=== PATIENT | female | born 1970 | race Caucasian/White ===

== ENCOUNTER 2019-05-31 09:57 | Outpatient (REF) | payer MEDICAID, SELFPAY ==
--- NOTE | 2019-05-31 08:45 | PAPFT_PTH ---
PATIENT: Odalis Garzon LOC: [facility]#:[id number] AGE/SX: 49/F ROOM: RE05/31/[address]: Octavia Warner : 1970 BED: DIS: 05/31/2019 SPEC #: [id number] RECD: 05/31/19 12:54 STATUS: TARIK REDonovan #: [id number] NICOLE: 05/31/19 08:[address]: Octavia Warner DEPT: [facility] Cytology RECD BY: Oxana Anne ENTERED: 05/31/19 12:55 SP TYPE: PAPFT TANYA DR: Carrie Herrera Tissues: 1 - CX/ENDOCX FOR PAP SMEARS Procedures: PAP THIN PREP/UVM Screening HPV DNA PROBE Comments: [id number]
[2019-05-31 13:11] LABS: Anion Gap 12.5 mmol/L (3-11); BUN 11 mg/dL (7-18); CO2 24.5 mmol/L (21.0-32.0); CREATININE 0.87 mg/dL (0.55-1.02); Calcium 9.2 mg/dL (8.5-10.1); Calculated LDL 221 mg/dL; Chloride 103 mmol/L (98-107); Cholesterol 303 mg/dL (50-200); Glucose 91 mg/dL (70-100); HDL Cholesterol 50 mg/dL (40-60); Potassium 4.3 mmol/L (3.5-5.1); Sodium 140 mmol/L (136-145); Triglyceride 164 mg/dL (30-150)
[2019-05-31 17:39] LABS: ALT 24 U/L (12-78); AST 12 U/L (15-37); Albumin 4.2 g/dL (3.4-5.0); Alkaline Phosphatase 85 U/L (46-116); Bilirubin, Total 0.7 mg/dL (0.2-1.0); Total Protein 7.5 g/dL (6.4-8.2)
== END 2019-05-31 10:17 ==
LOC: NCHCN 09:57
PROVIDERS: PCP Nurse Practitioner; Visit Provider Nurse Practitioner Family
DX: E28.2 Polycystic ovarian syndrome (principal); E78.5 Hyperlipidemia, unspecified; R60.0 Localized edema; N39.490 Overflow incontinence; F51.04 Psychophysiologic insomnia; L70.9 Acne, unspecified; E66.9 Obesity, unspecified; Z12.4 Encounter for screening for malignant neoplasm of cervix; Z11.51 Encounter for screening for human papillomavirus (HPV); Z00.00 Encounter for general adult medical examination without abnormal findings
CPT/HCPCS: 80048; 80061; 80076; 83721; 88142; 84443; 87624

== ENCOUNTER 2019-06-13 00:55 | Outpatient (CLI) | payer MEDICAID, SELFPAY ==
--- NOTE | 2019-06-13 11:38 | DI.MAMMO_ITS ---
SYMPTOMS/DIAGNOSIS: SCREENING, Z12.31 MAMMOGRAM: Mammograms were interpreted according to the usual protocol including computer analysis with CAD system, tomosynthesis and C view imaging. No priors for comparison. Breast density B. There is a well circumscribed nodule in the upper outer quadrant of the right breast likely reflecting intraparenchymal lymph node. No suspicious masses or microcalcifications. Asymmetric breast tissue is seen in the outer left breast. Spot compression views requested for further evaluation. Ultrasound may be indicated at that time. IMPRESSION: Additional views of the left breast as described above. Category 0. [facility]SA ASSESSMENT OF FINDINGS: Incomplete: Needs additional imaging evaluation. Category 0. Patient will receive a letter notifying them of these results. BI-RADS category B. There are scattered areas of fibroglandular density.
== END 2019-06-13 01:15 ==
PROVIDERS: PCP Nurse Practitioner; Visit Provider Nurse Practitioner Family
DX: Z12.31 Encounter for screening mammogram for malignant neoplasm of breast (principal); R92.8 Other abnormal and inconclusive findings on diagnostic imaging of breast
CPT/HCPCS: 77063; 77067

== ENCOUNTER 2019-06-15 01:11 | Outpatient (CLI) | payer MEDICAID, SELFPAY ==
--- NOTE | 2019-06-15 11:00 | NS.NUTBLAN_ITS ---
DESCRIPTION: Odalis Garzon presents for nutrition consult for bariatric surgery. Odalis asks about 16 hour fast daily; different diet plans. She states she has tried no processed food but does not sustain the change. She acknowledges a lack of consistency with her weight loss efforts. She also states she sleeps poorly and gets up in the night to eat. Food choices currently influenced by family considerations during the summer. She is not hungry for breakfast but might have protein drink; lunch yesterday was BLT, fruit, 1/2 cran/seltzer; chips. She has a regular meat, potato, vegetable and small dessert. She exercises irregularly attempting walking and occasionally treadmill. She also wonders if she has PCOS. WEIGHT TODAY: 207.8 HEIGHT: 60 BMI: 40.7 INTERVENTION: Discussed healthy eating strategies. Discussed initiating regular exercise plan. Discussed bariatric recommendations of no soda or seltzer. Discussed alternatives to current choices of food at night and prevention of eating at that time. Discussed tracking food. PLAN: Odalis will: get a walking partner or use the treadmill 3 days a week begin eating fruits and vegetables consistently; have healthy snacks available for night eating She will return in 1 month for monitoring of food, physical activity and weight.
--- NOTE | 2019-07-05 09:00 | NS.NUTBLAN_ITS ---
DESCRIPTION: Coni Garzon presents for her second nutrition consult for preparation for bariatric surgery. Weight today: 204.7 Height 60 BMI 40.0 Odalis states she is consistently eating protein shakes as a meal in the morning. She is journaling her food which helps her reflect on triggers however she did not bring it with her. She continues to get up in the night and make poor food decisions. She has done some walking and gardening about 100 minutes per week. INTERVENTION: Discussed night eating and availability of food at that time. Discussed carbonated beverage intake and she will attempt to cut back on this. Discussed taking multivitamin and she is willing to begin this. Discussed types of surgeries and the benefits of each as a supportive listener. PLAN: Odalis will: continue current physical activity; continue journaling her food. We will monitor weight, food intake, physical activity in 1 month.
== END 2019-06-15 01:31 ==
PROVIDERS: PCP Nurse Practitioner; Visit Provider Dietitian, Registered
DX: E66.01 Morbid (severe) obesity due to excess calories (principal); Z01.818 Encounter for other preprocedural examination; Z71.3 Dietary counseling and surveillance
CPT/HCPCS: 97802; 97803

== ENCOUNTER 2019-06-17 01:46 | Outpatient (CLI) | payer MEDICAID, SELFPAY ==
--- NOTE | 2019-06-17 14:48 | DI.MAMMO_ITS ---
SYMPTOMS/DIAGNOSIS: F/U ABNORMAL MAMMO, ASYMMETRIC BREAST TISSUE OUTER LEFT BREAST ADDITIONAL VIEW OF THE LEFT BREAST: Additional images are interpreted according to the usual protocol including tomosynthesis and 2D imaging. A CC spot compression view with tomography of the lateral portion of the left breast was performed. No persistent abnormality is seen. The findings are consistent with overlying fibroglandular tissue. IMPRESSION: Category 1, negative mammogram. Yearly screening mammography is recommended. [facility] ASSESSMENT OF FINDINGS: Negative. Category 1. Patient will receive a letter notifying them of these results. BI-RADS category B. There are scattered areas of fibroglandular density.
== END 2019-06-17 02:06 ==
PROVIDERS: PCP Nurse Practitioner; Visit Provider Nurse Practitioner Family
DX: Z12.31 Encounter for screening mammogram for malignant neoplasm of breast (principal); R92.8 Other abnormal and inconclusive findings on diagnostic imaging of breast; N64.59 Other signs and symptoms in breast
CPT/HCPCS: 77063; 77067

== ENCOUNTER 2019-07-05 09:24 | Outpatient (CLI) | payer MEDICAID, SELFPAY ==
--- NOTE | 2019-07-21 11:13 | NS.NUTBLAN_ITS ---
DESCRIPTION: Odalis Garzon presents for her second nutrition consult for preparation for bariatric surgery. Weight today: 204.7 Height 60 BMI 40.0 Odalis states she is consistently eating protein shakes as a meal in the morning. She is journaling her food which helps her reflect on triggers however she did not bring it with her. She continues to get up in the night and make poor food decisions. She has done some walking and gardening about 100 minutes per week. INTERVENTION: Discussed night eating and availability of food at that time. Discussed carbonated beverage intake and she will attempt to cut back on this. Discussed taking multivitamin and she is willing to begin this. Discussed types of surgeries and the benefits of each as a supportive listener. PLAN: Odalis will: continue current physical activity; continue journaling her food. We will monitor weight, food intake, physical activity in 1 month.
== END 2019-07-05 09:44 ==
PROVIDERS: PCP Nurse Practitioner Family; Visit Provider Dietitian, Registered
DX: E66.2 Morbid (severe) obesity with alveolar hypoventilation (principal); Z68.41 Body mass index [BMI] 40.0-44.9, adult; Z71.3 Dietary counseling and surveillance
CPT/HCPCS: 97803

== ENCOUNTER 2019-07-08 09:26 | Outpatient (CLI) | payer MEDICAID, SELFPAY ==
[2019-07-08 10:36] LABS: Anion Gap 12.3 mmol/L (3-11); BUN 14 mg/dL (7-18); CO2 23.7 mmol/L (21.0-32.0); CREATININE 0.95 mg/dL (0.55-1.02); Calcium 8.8 mg/dL (8.5-10.1); Calculated LDL 86 mg/dL; Chloride 103 mmol/L (98-107); Cholesterol 150 mg/dL (50-200); Glucose 95 mg/dL (70-100); HDL Cholesterol 46 mg/dL (40-60); Potassium 4.2 mmol/L (3.5-5.1); Sodium 139 mmol/L (136-145); Triglyceride 91 mg/dL (30-150)
[2019-07-11 15:33] LABS: ALT 25 U/L (12-78); AST 17 U/L (15-37); Alkaline Phosphatase 74 U/L (46-116); Bilirubin, Total 0.5 mg/dL (0.2-1.0); Total Protein 7.1 g/dL (6.4-8.2)
== END 2019-07-08 09:46 ==
PROVIDERS: PCP Nurse Practitioner Family; Visit Provider Nurse Practitioner Family
DX: E78.5 Hyperlipidemia, unspecified (principal); Z00.00 Encounter for general adult medical examination without abnormal findings
CPT/HCPCS: 36415; 80048; 80053; 80061; 83721

== ENCOUNTER 2019-08-08 02:28 | Outpatient (CLI) | payer MEDICAID, SELFPAY ==
--- NOTE | 2019-08-08 10:00 | NS.NUTBLAN_ITS ---
DESCRIPTION: Odalis Garzon presents for her 3rd nutrition consult for bariatric surgery. Odalis is focused on physical activity and is walking 45 minutes at least once a day an doing treadmill about 25 minutes a day. She has a protein shake at breakfast; small lunch of 1/2 PBJ or carrots with hummus, big salad, meat and starch for supper. She is not drinking carbonated beverages which she misses, and has an occasional beer; she takes multivitamins. Primarily drinks water and tea. She has decreased the frequency of her night eating and is having a small snack before bed as a prevention tactic.. WEIGHT TODAY: 204.8 HEIGHT: 60 BMI: 40 INTERVENTION: Odalis is discouraged about doing the 'right' things and not losing weight. Discussed her concern that this surgery may not work for treating obesity as a side effect of PCOS. Discusses her appointment for psychiatric evaluation. She is journaling her food. PLAN: Odalis will follow up with surgeon to have her questions answered and prepare for surgery. She will continue her current food and activity pattern
== END 2019-08-08 02:48 ==
PROVIDERS: PCP Nurse Practitioner Family; Visit Provider Dietitian, Registered
DX: E66.2 Morbid (severe) obesity with alveolar hypoventilation (principal); Z68.41 Body mass index [BMI] 40.0-44.9, adult; Z71.3 Dietary counseling and surveillance
CPT/HCPCS: 97803

== ENCOUNTER 2019-08-22 09:05 | Day surgery (SDC) | payer MEDICAID, SELFPAY ==
--- NOTE | 2019-08-22 06:59 | W.COLOREPORT ---
Date of service: 08/22/19 Time of Service: 10:34 Colonoscopy Report Date of procedure: 08/22/19 Pre-op diagnosis general: Colon Cancer Screening Post-op diagnosis procedure note: other (3 polyps) Procedure: Colonoscopy with polypectomy Surgeon: Yanira Vela Anesthesia proc note operative: other (General/ ASA 2/ Sharee Orr CRNA) Estimated blood loss (mL): 3 Pathology: other (Transverse polyp x1, Rectal polyp x2) Complications: None Disposition: same day Indications: Mrs. Garzon is a pleasant 49 year old female seen in the office for a screening colonoscopy. She has no family history of colon cancer. This is her first colonoscopy. Risks, benefits and complications have been reviewed. Complications include but are not limited to bleeding, pain, perforation, missed small lesion/polyp, sore throat, aspiration and adverse reaction to the medications. Questions were entertained and answered to their satisfaction and they wished to proceed. No guarantees were given or implied. Prep: Miralax/Dulcolax Procedure Start Time: :34 Procedure End Time: 11:00 Retraction Time: 17 minutes Findings: 3 flat polyps Procedure Description: After informed consent was obtained the patient was taken to the procedure room and placed in a left decubitous position. Monitors were applied and a time out was done. The patients name, date of , procedure, allergies to medications and metal in their body was reviewed. The patient was then sedated. Once sedated and comfortable a rectal exam was done. External exam was normal. Internal exam revealed a normal sphincter tone and no palpable masses. The scope was then introduced and retro-flexed. No internal hemorrhoids masses or polyps were identified. The scope was then advanced to the cecum without difficulty. The TI and appendiceal orifice were identified. The prep was adequate. The scope was then slowly retracted over 17 minutes back into the rectum. Polyps were removed in the transverse colon and 2 in the rectum with cold forceps. The scope was removed and the patient was woken up and taken back to Same day surgery in stable condition. The patient tolerated the procedure well and there were no immediate complications. Follow up: The patient should follow up in 3-5 years unless they develop changes in bowel habits or other new gastrointestinal complaints.
--- NOTE | 2019-08-22 07:01 | W.PM.DSUDISC ---
Discharge Plan Disposition Patient Disposition: HOME Condition: Good Discharge Details Reason For Visit: Colon Cancer Screening Attending Provider: Yanira Vela Primary Care Provider: Octavia Warner Home Meds and New Rx's Prescriptions: Continued atorvastatin 10 mg tablet 20 mg PO DAILY RF: 0 spironolactone [Aldactone] 50 mg tablet 50 mg PO DAILY RF: 0 ONE DAILY 1 TAB tablet 1 tab PO DAILY RF: 0 Discontinued polyethylene glycol 3350 17 gram/dose powder 238 g PO ONCE Qty: 238 RF: 0 bisacodyl [Dulcolax (bisacodyl)] 5 mg tablet,delayed release (DR/EC) 5 mg PO ONCE Qty: 4 RF: 0 Discharge Instructions Instructions: Colorectal Polyps (DC) Additional Instructions: Findings: 3 polyps Follow up: 3-5 years Please call if you develop: fevers >101.5 Nausea or Vomiting Abdominal pain that is not transient DAY SURGERY UNIT POST ENDOSCOPY INSTRUCTIONS 1. Because there will be medication in your system for the next 24 hours, you may feel a little sleepy. Your coordination will be affected. Therefore: a. Do not drive or operate dangerous equipment for 24 hours. b. Do not drink alcohol beverages for 24 hours (not even beer). c. Plan to go home and rest for the day. 2. Generally there are no restrictions on your activity after a day or so has gone by, but you may feel a bit fatigued for a few days. 3 After you arrive home you may have a light meal and return to a normal diet as you can tolerate it without feeling sick to your stomach. 4. After surgery, you may feel pain or discomfort. This should be only transient, but if it persists please contact your doctor. 5. If there are any questions regarding the findings of your procedure, please feel free to contact your doctor. 6. If you are unable to contact your doctor with a problem, contact the hospital at [phone]. 7. Continue all your regular medications unless directed otherwise. I understand the above instructions and have no questions. Signature of Patient or Responsible Adult Escort Date/Time Name of Responsible Adult Escort Signature of Nurse Date/Time Activity:: Activity as Tolerated Diet:: As Tolerated Discharge Orders Discharge Orders: Discharge Order (Routine); Ordered 08/22/19 Ordered By: Yanira Vela DS: Diagnosis Discharge Diagnosis (1) S/P colonoscopy: Status: Acute (2) Colorectal polyps: Status: Acute
[2019-08-22 09:23] VITALS: BP 139/76; PULSE 74; RESP 14; TEMP 36.3; O2SAT 96
[2019-08-22] MEDS: Lactated Ringers 1,000 ML 80 ML IV (10:00)
--- NOTE | 2019-08-22 10:48 | BOWEL_PTH ---
PATIENT: Odalis Garzon LOC: [facility] U#:[id number] AGE/SX: 49/F ROOM: RE08/22/[address]: Yanira Vela MD : 1970 BED: DIS: 08/22/2019 SPEC #: [id number] RECD: 08/22/19 12:50 STATUS: TARIK REQ #: [id number] NICOLE: 08/22/19 10:[address]: Yanira Vela DEPT: Surgical Specimen RECD BY: Oxana Anne ENTERED: 08/22/19 12:51 SP TYPE: Bowel OTHR DR: Octavia Warner Tissues: 1 - BIOPSY BOWEL 2 - BIOPSY BOWEL Procedures: GROSS AND MICRO LEVEL 4 Comments: [id number]
[2019-08-22 11:37] VITALS: BP 132/67; PULSE 55; RESP 15; TEMP 36.4; O2SAT 100
== END 2019-08-22 12:02 | disposition home or self-care (01) ==
LOC: SUR 09:06
PROVIDERS: PCP Nurse Practitioner Family; Visit Provider Surgery
PROC: 0DJD8ZZ Inspection of Lower Intestinal Tract, Via Natural or Artificial Opening Endoscopic (ICD-10-PCS; CPT 45378; principal; 2019-08-22 10:30)
DX: Z12.11 Encounter for screening for malignant neoplasm of colon (principal); K62.1 Rectal polyp; K21.9 Gastro-esophageal reflux disease without esophagitis
CPT/HCPCS: 45380; 81025; 88305

== ENCOUNTER 2021-06-17 14:33 | Outpatient (REF) | payer MEDICAID, SELFPAY ==
[2021-06-17 21:10] LABS: ALT 23 U/L (14-59); AST 16 U/L (15-37); Albumin 4.1 g/dL (3.4-5.0); Alkaline Phosphatase 56 U/L (46-116); Anion Gap 10.3 mmol/L (3-11); BUN 10 mg/dL (7-18); Bilirubin, Total 0.4 mg/dL (0.2-1.0); CO2 27.7 mmol/L (21.0-32.0); CREATININE 0.8 mg/dL (0.55-1.02); Calcium 9.3 mg/dL (8.5-10.1); Chloride 105 mmol/L (98-107); Glucose 97 mg/dL (74-106); Potassium 4.2 mmol/L (3.5-5.1); Sodium 143 mmol/L (136-145); Total Protein 6.9 g/dL (6.4-8.2)
== END 2021-06-17 14:34 | disposition home or self-care (01) ==
LOC: NCHCN 14:33
PROVIDERS: PCP Nurse Practitioner Family; Visit Provider Nurse Practitioner Family
DX: G25.81 Restless legs syndrome; N39.490 Overflow incontinence; F32.9 Major depressive disorder, single episode, unspecified; E66.9 Obesity, unspecified; E78.5 Hyperlipidemia, unspecified; F41.8 Other specified anxiety disorders
CPT/HCPCS: 80053

== ENCOUNTER 2021-07-18 01:34 | Outpatient (CLI) | payer MEDICAID, SELFPAY ==
--- NOTE | 2021-07-18 | DI.MAMMO_ITS ---
Exam(s) MAMMO SCREENING EXAM: MAMMO SCREENING CLINICAL HISTORY: SCREENING, Z12.31. TECHNIQUE: Bilateral full field digital CC and MLO mammographic images were obtained with 3D tomosyn thesis and utilizing computer aided detection (CAD). COMPARISON: Prior mammogram of May 2019, this being the only prior mammogram in our PACS FINDINGS: Benign-appearing nodule in the upper outer quadrant of right breast is unchanged and most probably be nign intramammary lymph node. There are no new spiculated masses nor malignant appearing microcalcification groups. There is no significant architectural distortion nor skin thickening-retraction. IMPRESSION: Stable benign findings. No radiographic evidence of malignancy. BI-RADS Category 2 - Benign Findings Breast Density - Category B - Scattered areas of fibroglandular density Breast density Category C or D implies that the patient has dense breast tissue. Dense breast tissue can make it harder to find cancer on a mammogram. Dense breast tissue is also associated with an incr eased risk of breast cancer. This information about the result of the mammogram report was provided to the patient to raise their awareness. Use this report when you speak with the patient about their risks for breast cancer, which includes their family history. At that time, you may recommend additional screening tests (Ultrasoun d or MRI) as these tests may add significant information. A negative radiographic report should not delay biopsy if a dominant or clinically suspicious mass is present. Up to ten percent of cancers are not identified on mammography. A negative report may reinforce clinical impression. Adenosis and dense breasts may obscure an underlying neoplasm. False positive reports average 6 to 10%. Patient will receive a letter notifying them of these results.
== END 2021-07-18 01:54 ==
PROVIDERS: PCP Nurse Practitioner Family; Visit Provider Nurse Practitioner Family
DX: Z12.31 Encounter for screening mammogram for malignant neoplasm of breast (principal); N63.11 Unspecified lump in the right breast, upper outer quadrant; R92.8 Other abnormal and inconclusive findings on diagnostic imaging of breast
CPT/HCPCS: 77063; 77067

== ENCOUNTER 2021-12-16 15:00 | Outpatient (REF) | payer MEDICAID, SELFPAY ==
[2021-12-16 21:38] LABS: Abs Immature Grans 0.06 10^3/uL (0.0-0.06); Absolute Basophil Count 0.04 10^3/uL (0.0-0.2); Absolute Eosinophil Count 0.08 10^3/uL (0.0-0.7); Absolute Lymphocyte Count 1.08 10^3/uL (1.2-3.4); Absolute Monocyte Count 0.51 10^3/uL (0.1-0.8); Absolute Neutrophil Count 1.16 10^3/uL (1.2-6.7); Basophils % 1.4; Eosinophils % 2.7; HCT 40.5 % (36.0-46.0); HGB 12.6 g/dL (11.2-15.7); Iron 27 ug/dL (50-170); Lymphocytes % 36.9; MCH 27.6 pg (27.0-33.0); MCHC 31.1 % (32.0-36.0); MCV 88.6 fL (80-95); MPV 11.4 fL (8.0-11.0); Monocytes % 17.4; Neutrophils % 39.6; Nucleated RBC 0 %; Platelet Count 255 10^3/uL (130-400); RBC 4.57 10^6/uL (3.93-5.22); RDW 13.8 % (11.7-14.6); RDW-SD 44.4 fL; Total Iron Binding Capacity 386 ug/dL (250-450); Transferrin Sat 7 % (15-50); WBC 2.93 10^3/uL (4.4-10.8)
[2021-12-16 22:31] LABS: Ferritin 8 ng/mL (8-252)
== END 2021-12-16 15:01 | disposition home or self-care (01) ==
LOC: NCHCN 15:00
PROVIDERS: PCP Nurse Practitioner Family; Visit Provider Nurse Practitioner Family
DX: N92.0 Excessive and frequent menstruation with regular cycle (principal); Z86.2 Personal history of diseases of the blood and blood-forming organs and certain disorders involving the immune mechanism; F41.8 Other specified anxiety disorders; R03.0 Elevated blood-pressure reading, without diagnosis of hypertension
CPT/HCPCS: 82728; 83540; 83550; 85025

== ENCOUNTER 2022-04-01 18:29 | Outpatient (REF) | payer MEDICAID, SELFPAY ==
[2022-04-01 14:16] LABS: Abs Immature Grans 0.03 10^3/uL (0.0-0.06); Absolute Basophil Count 0.05 10^3/uL (0.0-0.2); Absolute Eosinophil Count 0.14 10^3/uL (0.0-0.7); Absolute Lymphocyte Count 1.51 10^3/uL (1.2-3.4); Absolute Monocyte Count 0.61 10^3/uL (0.1-0.8); Absolute Neutrophil Count 4.84 10^3/uL (1.2-6.7); Basophils % 0.7; Eosinophils % 1.9; HCT 43.5 % (36.0-46.0); HGB 13.4 g/dL (11.2-15.7); Immature Grans % 0.4; MCH 27.7 pg (27.0-33.0); MCHC 30.8 % (32.0-36.0); MCV 90 fL (80-95); MPV 10.9 fL (8.0-11.0); Monocytes % 8.5; Neutrophils % 67.5; Platelet Count 230 10^3/uL (130-400); RBC 4.83 10^6/uL (3.93-5.22); RDW 15.1 % (11.7-14.6); RDW-SD 49.9 fL; WBC 7.18 10^3/uL (4.4-10.8)
[2022-04-01 14:30] LABS: Iron 35 ug/dL (50-170); Total Iron Binding Capacity 372 ug/dL (250-450); Transferrin Sat 9 % (15-50)
== END 2022-04-01 18:30 | disposition home or self-care (01) ==
LOC: NCHCN 18:29
PROVIDERS: PCP Nurse Practitioner Family; Visit Provider Nurse Practitioner Family
DX: E61.1 Iron deficiency (principal)
CPT/HCPCS: 83540; 83550; 85025

== ENCOUNTER → 2022-08-05 15:22 | Outpatient (CLI) | payer MEDICAID, SELFPAY ==
--- NOTE | 2022-08-05 15:00 | DI.RAD_ITS ---
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 TECHNIQUE: 2D digital imaging was performed. Four views including sesamoid view. COMPARISON: No exams were available for comparison FINDINGS: BONES: No acute fracture is present. No bony destructive lesion is seen. Prior 1st metatarsal osteoto my with pin in place. JOINTS: No dislocation present. No significant degenerative changes. SOFT TISSUE: Calcifications are noted near the sesamoid bones the plantar aspect. There are 2 medial sesamoids and 1 lateral sesamoid. IMPRESSION: Calcifications in the region of the sesamoids. Postsurgical changes of the 1st metatarsal. DATA REPOSITORY: RADIATION DOSE DELIVERED:
--- OUTSIDE RECORDS SUMMARY | 2022-08-05 15:29 | XMS_ITS | Encounter Summary ---
:1970 Author Organization [facility] Address [address] [place] [address] Care Team Providers Name Role Phone Unavailable Primary Care Provider Unavailable Encounter Details Date Type Department Care Team Description 03/24/2007 Results Only [facility] - Rosy Reis FNP conversion [address] [place], [place] [id number] [place] [phone] (Wo rk) Social History Tobacco Use Types Packs/Day Years Used Date Never Assessed Sex Assigned at Date Recorded Not on file documented as of this encounter Plan of Treatment Not on filedocumented as of this encounter Procedures Procedure Name Priority Date/Time Associated Diagnosis Comme nts CYTOPATHOLOGY Routine 03/24/2007 0:00 EDT Results for this procedure are i n the results section . documented in this encounter Results CYTOPATHOLOGY (03/24/2007 0:00 EDT) Pathology Report: CYTOPATHOLOGY REPORT [facility] Reports generated via electronic interface contain paty ginal data; however they are lacking the format of the original re port. Caution should be taken when reading/interpreting unfo rmatted reports. Name: ? ODALIS CARROLL ? Accession #: ? [id number] : ? 1970 (Age: 36) ??F ?Collect Date: ? 12/2006 Location: ? [facility] ? Receive Date : ? 03/25/2007 Provider: ?ROSY BAUMANN POSTIE Copy to: ? Specimen/Source: ? ThinPrep Pap Test, Cervix/Endocervix, processed on [employer] ThinPrep Imaging System, with manual evaluation Last Menstrual Period: ? 02/27 Other: ? HPVA - HPV testing requested if ASC-US on the current ThinPrep Pap test. ? SPECIMEN ADEQUACY ? Satisfactory for Evaluation - transformation zone component present GENERAL CATEGORIZATION ? Negative for Intraepithelial Lesion or Malignan cy ? Document reviewed and electronically signed by: ? FADIA Sweeney(ASCP) ? Report Date: ??03/30/2007 09:00 End of Report Specimen Performing Organization Address City/State/ZIP Code Phon e Number [facility] [address] [place] [address] SERVICES [facility] [address] [place] [address] documented in this encounter Visit Diagnoses Not on filedocumented in this encounter
--- OUTSIDE RECORDS SUMMARY | 2022-08-05 15:29 | XMS_ITS | Encounter Summary ---
:[address] [facility] Address [address] [place] [address] Care Team Providers Name Role Phone Rosy Herrera CARMEN Primary Care Provider Encounter Details Date Type Department Care Team Description 11/27/2014 Results Only [facility] Rosy Herrera FNP Laboratory Services - [place] [address] [address] [place], [place] [address] [phone] Social History Tobacco Use Types Packs/Day Years Used Date Never Assessed Sex Assigned at Date Recorded Not on file documented as of this encounter Plan of Treatment Not on filedocumented as of this encounter Procedures Procedure Name Priority Date/Time Associated Diagnosis Comme nts PAP TEST- RESULT Routine 11/27/2014 0:00 EST Resu lts for this ONLY procedure are i n the results section. documented in this encounter Results PAP TEST- RESULT ONLY (11/27/2014 0:00 EST) Pathology Report: CYTOPATHOLOGY REPORT [facility] Reports generated via electronic interface contain paty ginal data; SERVICES however they are lacking the format of the original re port. Caution should be taken when reading/interpreting unfo rmatted reports. Name: ? ODALIS CARROLL ? Accession #: ? [id number] : ? 1970 (Age: 44) ??F ?Collect Date: ? 03/2015 Location: ? [facility] ? Receive Date : ? 11/29/2014 Provider: ?ROSY CALDWELLP Copy to: ? Specimen/Source: ? Pap Test, Cervix/Endocervix, ThinPrep Imaging System with manual evaluation Last Menstrual Period: ? 10/2014 Other: ? Additional clinical information: Lesions on R inner la carly minora ? SPECIMEN ADEQUACY ? Satisfactory for Evaluation - transformation zone component absent GENERAL CATEGORIZATION ? Negative for Intraepithelial Lesion or Malignan cy ? Document reviewed and electronically signed by: ? FADIA Palacios(ASCP) ? Report Date: ??11/30/2014 14:03 End of Report Specimen Performing Organization Address City/State/ZIP Code Phon e Number [facility] [address] [place] [address] SERVICES documented in this encounter Visit Diagnoses Not on filedocumented in this encounter Care Teams Canvas Cutter Hand Relationship Specialty Start Date End Date Rosy Herrera FNP PCP - General 02/17/12 [address] [place] [address] documented as of this encounter
--- OUTSIDE RECORDS SUMMARY | 2022-08-05 15:29 | XMS_ITS | Encounter Summary ---
:1970 Author Organization [facility] Address [address] [place] [address] Care Team Providers Name Role Phone Carrie Herrera REINFORCED CONCRETE INSPECTOR Primary Care Provider Encounter Details Date Type Department Care Team Description 02/05/2018 Results Only [facility] [place]- Shanna Sainz, WASTE TREATMENT OPERATOR [address] [place], [place] [phone] (Wo rk) Social History Tobacco Use Types Packs/Day Years Used Date Never Assessed Sex Assigned at Date Recorded Not on file documented as of this encounter Plan of Treatment Not on filedocumented as of this encounter Procedures Procedure Name Priority Date/Time Associated Diagnosis Comme nts PAP TEST- RESULT Routine 02/05/2018 0:00 EDT Resu lts for this ONLY procedure are i n the results section. documented in this encounter Results PAP TEST- RESULT ONLY (02/05/2018 0:00 EDT) Pathology Report: CYTOPATHOLOGY REPORT [facility] Reports generated via electronic interface contain paty ginal data; SERVICES however they are lacking the format of the original re port. Caution should be taken when reading/interpreting unfo rmatted reports. Name: ? ODALIS CARROLL ? Accession #: ? [id number] ? : ? 1970 (Age: [age]) ??F ?Collect Date: ? 02/05/2018 ? Location: ? [facility] ? Receive Date: ? 02/10/20 18 ? Provider: SHANNA GONZALEZ WASTE TREATMENT OPERATOR Copy to: ? Final Report SPECIMEN ADEQUACY ? Satisfactory for Evaluation - transformation zone component present GENERAL CATEGORIZATION ? Negative for Intraepithelial Lesion or Malignan cy ?? Last Menstrual Period: 01/22/18 Specimen/Source: ??Pap Test, Cervix, ThinPrep Imaging System with manual evaluation Document reviewed and electronically signed by: ? Cassandra Red, CT(ASCP)(IAC) ? Report ??Date: 02/12/2018 14:53 HPV with Pap Test ? Date Ordered: ? 02/12/2018 ? Status: ?? Signed Out ?Date Complete: ? 02/15/2018 ? By: ??Sy stem Interface ? Date Reported: ? 02/15/2018 ? Interpretation RESULT: Negative for HPV. No E6 or E7 mRNA is detected from HPV types 16,18,31,3 3,35, 39,45,51,52,56,58,59,66, and 68 by assessment nurse media johny amplification. Comments Document reviewed and electronically signed by: ? System Interface ? Report date: 02/15/2018 By the signature above, the attending physician certif ies that he/she has personally conducted a gross and/or microscopic examin ation of the described specimens and rendered or confirmed the above diagnosi s. End of Report Specimen Performing Organization Address City/State/ZIP Code Phon e Number [facility] [address] [place] [address] SERVICES documented in this encounter Visit Diagnoses Not on filedocumented in this encounter Care Teams Photovoltaic Fabrication Technician Relationship Specialty Start Date End Date Carrie Herrera FNP PCP - General 02/17/12 [address] [address] [place], [place] [id number] documented as of this encounter
--- OUTSIDE RECORDS SUMMARY | 2022-08-05 15:29 | XMS_ITS | Encounter Summary ---
:1970 Author Organization [facility] Address [address] [place] [address] Care Team Providers Name Role Phone Carrie Herrera Primary Care Provider Encounter Details Date Type Department Care Team Description 08/22/2019 Hospital Encounter [facility] - S Unknown, Pro Lakshmi tran MD [address] [facility] [phone] [place] [address] (Work) [phone] Social History Tobacco Use Types Packs/Day Years Used Date Never Assessed Sex Assigned at Date Recorded Not on file documented as of this encounter Discharge Disposition Disposition Code Departure Means Destination Auto Discharge Home documented in this encounter Plan of Treatment Not on filedocumented as of this encounter Visit Diagnoses Not on filedocumented in this encounter Care Teams Polisher Balance Screwhead Relationship Specialty Start Date End Date Carrie Herrera FNP PCP - General 02/17/12 [address] [place] [address] documented as of this encounter
--- OUTSIDE RECORDS SUMMARY | 2022-08-05 15:29 | XMS_ITS | Encounter Summary ---
:1970 Author Organization [facility] Address [address] [place] [address] Care Team Providers Name Role Phone Carrie Herrera FORGING PRESS SETTER UP Primary Care Provider Encounter Details Date Type Department Care Team Description 05/31/2019 Results Only [facility]- Shanna Sainz, CABLE ARMORER OPERATOR [address] [place], [place] [phone] (Wo rk) Social History Tobacco Use Types Packs/Day Years Used Date Never Assessed Sex Assigned at Date Recorded Not on file documented as of this encounter Plan of Treatment Not on filedocumented as of this encounter Procedures Procedure Name Priority Date/Time Associated Diagnosis Comme nts PAP TEST- RESULT Routine 05/31/2019 0:00 EDT Resu lts for this ONLY procedure are i n the results section. documented in this encounter Results PAP TEST- RESULT ONLY (05/31/2019 0:00 EDT) Pathology Report: CYTOPATHOLOGY REPORT [facility] Reports generated via electronic interface contain paty ginal data; SERVICES however they are lacking the format of the original re port. Caution should be taken when reading/interpreting unfo rmatted reports. Name: ? ODALIS CARROLL ? Accession #: ? [id number] ? : ? 1970 (Age: 4 0) ??F ?Collect Date: ? 2018 ? Location: ? [facility] ? Receive Date: ? 06/01/20 19 ? Provider: SHANNA GONZALEZ CABLE ARMORER OPERATOR Copy to: ? Final Report SPECIMEN ADEQUACY ? Satisfactory for Evaluation - transformation zone component present GENERAL CATEGORIZATION ? Negative for Intraepithelial Lesion or Malignan cy ?? Last Menstrual Period: 05/17/19 Hormonal/Contraceptive status: Condoms Other: Additional clinical information: Z00.00 Z12.4 Z 01.419 Specimen/Source: ??Pap Test, Cervix/Endocervix, ThinPr ep Imaging System with manual evaluation Document reviewed and electronically signed by: ? Francisco Her, CT(ASCP) ? Report ??Date: 06/02/2019 10:48 HPV with Pap Test ? Date Ordered: ? 06/02/2019 ? Status: ?? Signed Out ?Date Complete: ? 06/03/2019 ? By: ??Sy stem Interface ? Date Reported: ? 06/03/2019 ? Interpretation RESULT: Negative for HPV. No E6 or E7 mRNA is detected from HPV types 16,18,31,3 3,35, 39,45,51,52,56,58,59,66, and 68 by application packaging consultant media johny amplification. Comments Document reviewed and electronically signed by: ? System Interface ? Report date: 06/03/2019 By the signature above, the attending physician certif ies that he/she has personally conducted a gross and/or microscopic examin ation of the described specimens and rendered or confirmed the above diagnosi s. End of Report Specimen Performing Organization Address City/State/ZIP Code Phon e Number [facility] [address] [place] [address] SERVICES documented in this encounter Visit Diagnoses Not on filedocumented in this encounter Care Teams Reduction Furnace Operator Helper Relationship Specialty Start Date End Date Carrie Herrera FNP PCP - General 02/17/12 [address] [place], [place] [phone] documented as of this encounter
--- OUTSIDE RECORDS SUMMARY | 2022-08-05 15:29 | XMS_ITS | Encounter Summary ---
:1970 Author Organization [facility] Address [address] [place] [address] Care Team Providers Name Role Phone Unavailable Primary Care Provider Unavailable Encounter Details Date Type Department Care Team Description 02/26/2011 Results Only [facility] Rosy Herrera FNP Laboratory Services - [place] [address] [address] [place] [address] [phone] Social History Tobacco Use Types Packs/Day Years Used Date Never Assessed Sex Assigned at Date Recorded Not on file documented as of this encounter Plan of Treatment Not on filedocumented as of this encounter Procedures Procedure Name Priority Date/Time Associated Diagnosis Comme [facility] CYTOPATHOLOGY Routine 02/26/2011 0:00 EDT Results for this procedure are i n the results section . documented in this encounter Results CYTOPATHOLOGY (02/26/2011 0:00 EDT) Pathology Report: CYTOPATHOLOGY REPORT ? [facility] Reports generated via PT PAL interface contain original data; ? however they are lacking the format of the original report. ? Caution should be taken when reading/interpreting unformatted reports. ? Name: ? CARLY, ODALIS ? Accession #: ? [id number] ? : ? 1970 (Age: 40) ??F ?Collect Date: ? 02/26/2011 ? Location: ? [facility] ? Receive Date: ? 02/28/2011 ? Provider: ?ROSY HES S HEALTH INFORMATICS INSTRUCTOR ? Copy to: ? Specimen/Source: ? Pap Test, Endocervix, ThinPrep Imaging System with ? manual evaluation ? Last Menstrual Period: ? 03/22/11 ? SPECIMEN ADEQUACY ? Satisfactory for Eval uation ? - transformation zone compon ent present ? GENERAL CATEGORIZATION ? Negative for Intraepi thelial Lesion or Malignancy ? Document reviewed and electr onically signed by: ? Nilda Maisha, CT( CP) ? Report Date: ??04/13/ 2011 11:04 ? End of Report ? Specimen Performing Organization Address City/State/ZIP Code Phon e Number [facility] [address] [phone] SERVICES [facility] [address] [place] [address] documented in this encounter Visit Diagnoses Not on filedocumented in this encounter
--- OUTSIDE RECORDS SUMMARY | 2022-08-05 15:29 | XMS_ITS | Encounter Summary ---
:1970 Author Organization [facility] Address [address] [place] [address] Care Team Providers Name Role Phone Carrie Herrera SHEETER OPERATOR Primary Care Provider Encounter Details Date Type Department Care Team Description 08/22/2019 Results Only [facility]- Cassie Machado, [address] [place], [place] [address] (Wo rk) Social History Tobacco Use Types Packs/Day Years Used Date Never Assessed Sex Assigned at Date Recorded Not on file documented as of this encounter Plan of Treatment Not on filedocumented as of this encounter Procedures Procedure Name Priority Date/Time Associated Diagnosis Comme [facility] SURGICAL PATHOLOGY Routine 08/22/2019 16:37 Resul ts for this EDT procedure are i n the results section. documented in this encounter Results SURGICAL PATHOLOGY (08/22/2019 16:37 EDT) Pathology Report: SURGICAL PATHOLOGY REPORT [facility] Reports generated via electronic interface contain paty ginal data; LABORATORY however they are lacking the format of the original re port. SERVICES Caution should be taken when reading/interpreting unfo rmatted reports. Name: ? ODALIS CARROLL ? Accession #: ? [id number] ? : ? 1970 (Age: 4 0) ??F ? Collect Date: ? 08/22/2019 ? Location: ? [facility] ? Receive Date: ? 08/22/20 19 ? Provider: CASSIE PINEDA MD Copy to: SHANNA Madhuri LISA HYBRID TECHNOLOGIST ? Final Pathologic Diagnosis: A. ??COLON, TRANSVERSE, POLYP, BIOPSY: - Colonic mucosa with prominent lymphoid aggregate. - Deeper sections have been reviewed. B. ??RECTUM, POLYPS, BIOPSY: - Hyperplastic polyp. Document reviewed and electronically signed by: DIMITRY YAN MD Report ??Date: 08/24/2019 09:31 By the signature above, the attending physician certif ies that he/she has personally conducted a gross and/or microscopic examin ation of the described specimens and rendered or confirmed the above diagnosi s. Specimen(s) Received: A. ??Transverse colon polyp B. ??Rectal polyps x2 Clinical History: Colon cancer screening Gross Description: A. ?Received in formalin labelled with proper p atient identification (initials C, R) and transve rse colon polyp are two wolf irregular tissues, 0.1 x 0.1 x 0.1 cm and 0.2 x 0.2 x 0.1 cm. Entirely submit johny in A1. B. ?Received in formalin labelled with proper p atient identification (initials C, R) and rectal polyp x2 are two pale to brown irregular to nodular tissues ranging from less than 0.1 cm in greatest dimension to 0.2 x 0.2 x 0.2 cm. The specimen is entirely submitted in B1 however the smaller tissue may not survive processing. ASAEL Estrada (ASCP) 08/22/2019 5:33 PM End of Report Specimen Performing Organization Address City/State/ZIP Code Phon e Number [facility] [address] [place] [phone] SERVICES documented in this encounter Visit Diagnoses Not on filedocumented in this encounter Care Teams Picker Tender Helper Relationship Specialty Start Date End Date Carrie Herrera FNP PCP - General 02/17/12 [address] [place] [address] documented as of this encounter
== END ==
PROVIDERS: PCP Nurse Practitioner Family; Visit Provider Podiatrist Foot & Ankle Surgery
DX: M89.9 Disorder of bone, unspecified (principal)
CPT/HCPCS: 73630

== ENCOUNTER → 2022-09-08 00:53 | Outpatient (CLI) | payer MEDICAID, SELFPAY ==
--- NOTE | 2022-09-08 09:27 | DI.RAD_ITS ---
Exam(s) XR FOOT LT COMPLETE EXAM: XR FOOT LT COMPLETE CLINICAL HISTORY: foot pain M89.9 DISORDER FO BONE SESAMOID PAIN. TECHNIQUE: 2D digital imaging was performed of the left foot. Three images were obtained. AP, obli que and lateral views were obtained. COMPARISON: CR XR FOOT LT COMPLETE from 08/05/2022 FINDINGS: The AP view is suboptimal and should be repeated. BONES: No acute fracture is present. No bony destructive lesion is seen. There is again seen a percut aneous pin in the 1st metatarsal. There is a hammertoe deformity of the 2nd toe. JOINTS: No dislocation present. SOFT TISSUE: Normal. IMPRESSION: 1. Suboptimal AP view which should be repeated at the patient's convenience. 2. Stable postsurgical changes of the 1st metatarsal. 3. No definite acute abnormality. DATA REPOSITORY: RADIATION DOSE DELIVERED:
== END ==
PROVIDERS: PCP Nurse Practitioner Family; Visit Provider Podiatrist Foot & Ankle Surgery
DX: Z98.890 Other specified postprocedural states (principal); M20.42 Other hammer toe(s) (acquired), left foot
CPT/HCPCS: 73630

== ENCOUNTER 2024-06-30 21:22 | Outpatient (REF) | payer MEDICAID, SELFPAY ==
--- NOTE | 2024-06-30 14:15 | PAPFT_PTH ---
PATIENT: Odalis Garzon LOC: [facility]#:[id number] AGE/SX: 54/F ROOM: RE06/30/[address]: Octavia Warner : 1970 BED: DIS: 06/30/2024 SPEC #: [id number] RECD: 07/01/24 12:36 STATUS: TARIK REID #: [id number] NICOLE: 06/30/24 14:[address]: Octavia Warner [facility] Cytology RECD BY: Socorro Ji Tissues: 1 - CX/ENDOCX FOR PAP SMEARS Procedures: PAP THIN PREP/[facility] Screening HPV DNA PROBE Comments: [id number] (HPV 16 & 18/45)
--- OUTSIDE RECORDS SUMMARY | 2024-06-30 21:29 | XMS_ITS | Encounter Summary ---
Author Organization [facility] [place] [address] Care Team Providers Care Molecular Biologist Name Role Phone Octavia Warner APRN Primary Care Provider [phone] Reason for Visit * Consultation (Routine) - Closed Specialty Diagnoses / Procedures Referred By Julián acuna Referred To Contact General Surgery Diagnoses OBESITY Octavia Warner APRN [address] [place] [address] [facility] [address] [place] [address] Referral ID Status Reason Start Date Expiration Date V isits Requested Visits Authorized [id number] Closed Consult, Test & Treat [facility] 06/02/2019 06/01/2020 1 1 Encounter Details Date Type Department Care Team (Late st Contact Info) Description 06/06/2019 5:30 PM EDT [place] [phone] Social History Tobacco Use Types Packs/Day Years Used Date Smoking Tobacco: Never Smokeless Tobacco: Never Sex and Gender Information Value Date Recorded Sex Assigned at Not on file Gender Identity Not on file Sexual Orientation Not on file documented as of this encounter Progress Notes * Kasandra Rogers - 06/06/2019 5:30 PM EDT Patient attended 06/06/19 Intro to Bariatric Surgery. documented in this encounter Plan of Treatment Not on file documented as of this encounter Visit Diagnoses Not on filedocumented in this encounter Care Teams Molecular Biologist Relationship Specialty Start Date End Date Octavia Warner APRN [address] [place] [address] PCP - General Family Medicine 06/02/19 documented as of this encounter
--- OUTSIDE RECORDS SUMMARY | 2024-06-30 21:29 | XMS_ITS | Encounter Summary ---
Author Organization [facility] Address [address] [place] [address] Care Team Providers Care University Registrar Name Role Phone Unavailable Primary Care Provider Unavailabl e Encounter Details Date Type Department Care Team (Late st Contact Info) Description 02/26/2011 Results Only [facility] Laboratory Services - [facility] ([facility] [address] [place], [place] [address] Rosy Herrera FNP [address] [place], [place] [phone] Social History Tobacco Use Types Packs/Day Years Used Date Smoking Tobacco: Never Assessed Sex and Gender Information Value Date Recorded Sex Assigned at Not on file Gender Identity Not on file Sexual Orientation Not on file documented as of this encounter Plan of Treatment Not on file documented as of this encounter Procedures Procedure Name Priority Date/Time Associated Diagnosis Comments CYTOPATHOLOGY Routine 02/26/2011 0:00 EDT documented in this encounter Results * CYTOPATHOLOGY (02/26/2011 0:00 EDT) Pathology Report: CYTOPATHOLOGY REPORT ? Reports generated via electronic interface contain original data; ? however they are lacking the format of the original report. ? Caution should be taken when reading/interpreti ng unformatted reports. ? Name: ? ODALIS CARROLL ? Accession #: ? [id number] ? : ? 1970 (Age: 40) ??F ?Collect Date: ? 02/26/2011 ? Location: ? [facility] ? Receive Date: ? 02/28/2011 ? Provider: ?ROSY MORALES ? Copy to: ? Specimen/Source: ?Pap Test, Endocervix, ThinPrep Imaging System with ? manual evaluation ? Last Menstrual Period: ? 03/22/11 ? SPECIMEN ADEQUACY ? Satisfactory for Evaluation ? - transformation zone component present ? GENERAL CATEGORIZATION ? Negative for Intraepithelial Lesion or Malignancy ? Document reviewed and electronically signed by: ? Nilda Ferrera, CT(ASCP) ? Report Date: ??03/05/2011 11:04 ? End of Report ? [facility] 02/26/2011 02/28/2011 Rosy Herrera PORTAL DEVELOPER PATHOLOGY ORDERABLES [facility] [address] [place] [address] documented in this encounter Visit Diagnoses Not on filedocumented in this encounter
--- OUTSIDE RECORDS SUMMARY | 2024-06-30 21:29 | XMS_ITS | Encounter Summary ---
Author Organization [facility] [place] [address] Care Team Providers Care Nutrition Consultant Name Role Phone Erna Garcia MD Primary Care Provider [phone] Reason for Visit * Reason Comments Dermatitis Encounter Details Date Type Department Care Team (Late st Contact Info) Description 05/23/2019 1:30 PM EDT Office Visit Dermatology at [facility] [address] [place] [address] Clarence Schmid MD [facility] [address] [place] [address] Acne, unspecified acne type; Androgenetic alopecia; High risk medication use Social History Tobacco Use Types Packs/Day Years Used Date Smoking Tobacco: Never Smokeless Tobacco: Never Sex and Gender Information Value Date Recorded Sex Assigned at Not on file Gender Identity Not on file Sexual Orientation Not on file documented as of this encounter Last Filed Vital Signs Vital Sign Reading Time Taken Comments Blood Pressure - - Pulse - - Temperature - - Respiratory Rate - - Oxygen Saturation - - Inhaled Oxygen Concentration - - Weight 90.7 kg (200 lb) 05/23/2019 2:10 PM EDT Height - - Body Mass Index - - documented in this encounter Progress Notes * Clarence Schmid - 05/23/2019 1:30 PM EDT Images from the original note were not included. DERMATOLOGY - ESTABLISHED PATIENT FOLLOW-UP Date of service: 05/23/2019 Odalisignacio Oroscoliss : 1970, 49 y.o. Chief Complaint: Chief Complaint Patient presents with ??? Dermatitis HPI: Odalis Garzon is a 49 y.o. female last seen by myself on 02/24/2019. Ms. Garzon returns today for hair loss and acne follow up. Patient has been taking Spironolactone 50mg BID. Patient states that it is hard to say if it has helped the hair loss but it did help the acne. She has not noticed any nausea or frequency in urinating, hypotension. No personal or family history of strokes, breast cancer in mothers aunt. Relevant Skin History: - Skin cancer (including type): none - Acne - Female pattern hair loss ?? Family History: Melanoma: no ?? Social History: - lives on [facility] - [employer] for [employer] - 2 children - Medications: Current Outpatient Medications Medication Sig Dispense Refill ??? amitriptyline (ELAVIL) 10 mg Tablet take 1 tablet by mouth at bedtime 0 ??? spironolactone (ALDACTONE) 50 mg Tablet Take 1 tablet by mouth 2 times daily. 180 tablet 1 ??? doxycycline (VIBRAMYCIN) 100 mg Capsule Take one capsule by mouth twice daily. Take with full glass of water and food. Do not take calcium or multivitamin supplements 180 capsule 0 No current facility-administered medications for this visit. Allergies: No Known Allergies Review of Systems: - General: Feels well. - Skin: No other skin concerns. Examination: - Constitutional: Patient was alert, well-appearing and in no noticeable distress. - Skin: An exam of the skin from the neck up was performed. This includes examination of the skin of the face, ears, scalp, and neck. - A female nurse was present and on standby during my examination. Diagnosis/Skin findings/Assessment/Plan: 1. 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 History and exam most consistent with androgenetic alopecia, or female-pattern hair loss. - Continue Spironolactone 50 twice daily. - Discussed Keke, patient will defer at this time 2. Adult onset acne: Cheeks left more than right; inflammatory papules few of which appear more deep seated, cystic. Discussed treatment options including OCP vs. Accutane vs. Increasing spironolactone. - Discontinue Doxycycline - Rx- Start Dapsone 5% gel- apply to the face daily - will plan to start low dose accutane, 30mg po daily. Discussed risks and benefits. Will need to discuss OCP options with OBGYN with whom she has an appointment in the coming weeks - Labs today (CBC, CMP, Lipid profile, bHCG) Weight: 90 kg iPledge ID: [id number] RTC: 4 weeks for accutane start, sooner if needed. Appointment scheduled upon exit. Instructed to call if problems arise. RTC: 1 month follow up Note initiated by Ruma Garcia CMA. I, Ruma Garcia CMA, have performed the documentation for this encounter in the presence of and acting as a scribe for Clarence Schmid MD. I performed the services which were documented by the scribe, and I agree with the accuracy of the documentation in this encounter. Clarence Schmid MD Reviewed and signed by: Clarence Schmid MD Resident in Dermatology [facility] Patient seen and evaluated with staff client leader: Patito Woods MD Section of Dermatology [facility] * Patito Woods MD - 05/23/2019 1:30 PM EDT I directly supervised Dr. Schmid in the care of this patient. I saw and evaluated this patient with Dr. Schmid. He presented the history and physical exam details to me, then we saw the patient together and I confirmed these findings. I agree with details as written. My physical examination confirms Dr. Schmid's findings. The assessment and plan were formulated in discussion with me at the time of visit and I agree withthem as documented. PATITO WOODS MD FAAD Staff Physician documented in this encounter Plan of Treatment Not on file documented as of this encounter Procedures Procedure Name Priority Date/Time Associated Diagnosis Comments HEMOGRAM Routine 05/23/2019 2:21 PM EDT High risk medication use DIFFERENTIAL, AUTOMATED Routine 05/23/2019 2:21 PM EDT High risk medication use CBC (WITH DIFF) Routine 05/23/2019 2:21 PM EDT High risk medication use BETA HCG, QUANTITATIVE Routine 9 2:21 PM EDT High risk medication use LIPID PANEL (REFLEX DIRECT LDL) Routine 05/23/2019 2:21 PM EDT High risk medication use COMPREHENSIVE METABOLIC PANEL Routine 05/23/2019 2:21 PM EDT High risk medication use documented in this encounter Results * Differential, Automated (05/23/2019 2:21 PM EDT) Neutrophil % 66.1 % [facility] Neutrophil Absolute 5.10 1.70 - 6.10 x10(3)/[facility] Lymph % 22.3 % [facility] Lymphocytes Abs 1.7 0.9 - 3.2 x10(3)/[facility] Monocyte % 9.5 % [facility] Monocyte Abs 0.7 0.3 - 0.9 x10(3)/[facility] Eos % 1.0 % [facility] Eosinophils Abs 0.1 0.0 - 0.4 x10(3)/[facility] Basophil % 0.6 % [facility] Baso Absolute 0.0 0.0 - 0.1 x10(3)/[facility] Immature Gran % 0.50 % [facility] Comment: Immature granulocytes(IG's)percentage and absolute count will include metamyelocytes, myelocytes, and promyelocytes. Blood smears from CBCs yielding IG's will be scanned manually for concordance. If this scan disagrees with the automated IG or if promyelocytes are noted, a manual differential will be performed. Immature Gran Absolute 0.04 0.00 - 0.04 x10(3)/[facility] Blood specimen (specimen) 05/23/2019 2:21 PM EDT 05/23/2019 4:29 PM EDT Narrative Resulting Agency Comment Spec In Lab Clarence Schmid MD HEMATOLOGY ORDERABLE S [facility] [place] [address] * Hemogram (05/23/2019 2:21 PM EDT) White Blood Cell 7.7 4.0 - 9.5 x10(3)/[facility] Red Blood Cell 4.92 4.00 - 5.21 x10(6)/[facility] Hemoglobin 14.3 11.7 - 15.5 gm/dL [facility] Hematocrit 45.0 35.7 - 45.8 % [facility] Mean Cell Volume 91.5 82.6 - 94.4 fL [facility] Mean Cell Hemoglobin 29.1 27.1 - 32.0 pg [facility] Mean Cell Hemoglobin Concentration 31.8 31.7 - 35.0 gm/dL [facility] Platelet 329 145 - 357 x10(3)/[facility] RDW Standard Deviation 45.8 37.0 - 46.0 [facility] RDW coefficient of variation 13.5 11.5 - 14.1 % [facility] Mean Platelet Volume 10.7 7.6 - 12.9 fL [facility] NRBC% auto 0.0 % [facility] NRBC Absolute 0.000 0.000 - 0.000 x10(3)/[facility] Blood specimen (specimen) 05/23/2019 2:21 PM EDT 05/23/2019 4:29 PM EDT Narrative Resulting Agency Comment Spec In Lab Clarence Schmid MD HEMATOLOGY ORDERABLE S [facility] [place] [address] * Beta HCG, quantitative (05/23/2019 2:21 PM EDT) Beta Human Chorionic Gonadotropin, Quantitative <1 mlU/ML [facility] Comment: REFERENCE RANGES NON- FEMALE: ??Less than 5 mIU/mL POSTMENOPAUSAL FEMALE: ??Less than 8 mIU/mL ? -- FEMALES -- Weeks of ? HCG range ??(mIU/mL) ? 3 weeks ? 5.8 - 71.2 ? 4 weeks ? 9.5 - 750 ? 5 weeks ? 217 - 7,138 ? 6 weeks ? 158 - 31,795 ? 7 weeks ? 3,697 - 163,563 ? 8 weeks ? 32,065 - 149,571 ? 9 weeks ? 63,803 - 151,410 ?10 weeks ? 46,509 - 186,977 ?12 weeks ? 27,832 - 210,612 ?14 weeks ? 13,950 - 62,530 ?15 weeks ? 12,039 - 70,971 ?16 weeks ? 9,040 - 56,451 ?17 weeks ? 8,175 - 46,868 ?18 weeks ? 8,099 - 20,176 Blood specimen (specimen) 05/23/2019 2:21 PM EDT 05/23/2019 4:33 PM EDT Narrative Resulting Agency Comment Spec In Lab Patito Woods MD CHEMISTRY ORDERABLES [facility] [place] [address] * Lipid Panel (05/23/2019 2:21 PM EDT) Cholesterol, Total 272 mg/dL [facility] Comment: Lower Risk: <200 mg/dL Average Risk: 200-239 mg/dL Higher Risk: >bf=737 mg/dL Triglyceride 353 mg/dL [facility] Comment: Average Risk/Lower Risk: <150 mg/dL Borderline High Risk: 150-199 mg/dL High Risk: 200-499 mg/dL Very High Risk: >dc=407 mg/dL HDL Cholesterol 44 mg/dL [facility] Comment: Males: ?? Higher Risk: <40 mg/dL Females: ?? HIgher Risk: <50 mg/dL LDL Cholesterol 157 mg/dL [facility] Comment: Lowest Risk: <100 mg/dL Lower Risk: 100-129 mg/dL Borderline High Risk: 130-159 mg/dL High Risk: 160-189 mg/dL Very High Risk: >mg=868 mg/dL Cholesterol/HDL Ratio 6.2 ratio [facility] Lipid Interpretation See Note [facility] Comment: Lipid management should be guided by a patient? s ASCVD risk, goals and preferences. ACC/AHA Guidelines recommend high intensity statin if clinical ASCVD or LDL greater than or equal to 190 mg/dL. http://Playviews.com/SYW-FGC-Herulmxno Adults aged 40-75 with LDL 70-189 mg/dL should have their 10 year ASCVD risk estimated with the ACC/AHA ASCVD risk trash man http://tools.acc.org/TZBTF-Ujyp-Qcpnmsica/ Statin should be discussed if risk greater than or equal to 7.5% in non-diabetics. With diabetes, moderate intensity statin is recommended if risk less than 7.5%, high intensity if risk greater than or equal to 7.5%. Annual lipid monitoring on statins is not necessary. Evaluate secondary causes of Triglycerides greater than 500 mg/dL or LDL greater than 190 mg/dL: See table 6 of ACC/AHA Guideline. Lifestyle modification is a critical component of ASCVD risk reduction. Blood specimen (specimen) 05/23/2019 2:21 PM EDT 05/23/2019 4:33 PM EDT Narrative Resulting Agency Comment Spec In Lab Patito Woods MD CHEMISTRY ORDERABLES [facility] [place] [address] * Comprehensive metabolic panel (non-fasting) (05/23/2019 2:21 PM EDT) Glucose 88 65 - 199 mg/dL [facility] Comment:Diabetes: >=200 mg/d L plus symptoms Blood Urea Nitrogen 15 8 - 18 mg/dL [facility] Creatinine 1.02 0.70 - 1.20 mg/dL [facility] Sodium 142 135 - 145 mmol/L [facility] Potassium 4.4 3.5 - 5.0 mmol/L [facility] Comment: Please note: ??Patients with WBC >100,000 may have falsely elevated Potassium levels. ??For accurate Potassium quantification in these patients send serum separator tube (gold top) for subsequent determinations. ??Contact the Clinical Chemistry Laboratory if there are any questions. Chloride 103 98 - 107 mmol/L [facility] Carbon Dioxide 25 22 - 31 mmol/L [facility] Anion Gap 14 5 - 15 mmol/L [facility] Calcium 9.4 8.5 - 10.5 mg/dL [facility] Protein, Total 7.3 6.1 - 8.0 gm/dL [facility] Albumin 4.6 3.2 - 5.2 gm/dL [facility] Aspartate Aminotransferase 15 0 - 30 unit/L [facility] Alanine Aminotransferase 19 0 - 30 unit/L [facility] Alkaline Phosphatase 72 40 - 104 unit/L [facility] Bilirubin, Total 0.3 0.2 - 1.3 mg/dL [facility] Est Glomerular Filtration Rate 64 >=60 mL/min/1. 73 m?? [facility] Comment: The eGFR was calculated using the CKD-EPI equation. As with all creatinine based estimates of kidney function, eGFR values calculated with the CKD-EPI equation are not accurate in patients with acute kidney failure, extremes of body mass or the acutely ill. http://[employer]DHnkf eGFR 74 >=60 mL/min/1. 73 m?? [facility] Comment: The eGFR was calculated using the CKD-EPI equation. As with all creatinine based estimates of kidney function, eGFR values calculated with the CKD-EPI equation are not accurate in patients with acute kidney failure, extremes of body mass or the acutely ill. http://Playviews.com/DHMCnkf Blood specimen (specimen) 05/23/2019 2:21 PM EDT 05/23/2019 4:33 PM EDT Narrative Resulting Agency Comment Spec In Lab Patito Woods MD CHEMISTRY ORDERABLES Performing Organization Address City/[facility] Co de Phone Number [facility] [place] [address] documented in this encounter Visit Diagnoses Diagnosis Acne, unspecified acne type Androgenetic alopecia Other alopecia High risk medication use Encounter for long-term (current) use of other medications documented in this encounter Care Teams Nutrition Consultant Relationship Specialty Start Date End Date Erna Garcia MD [address] [place] [id number] PCP - General Family Medicine 09/18/17 06/01/19 documented as of this encounter
--- OUTSIDE RECORDS SUMMARY | 2024-06-30 21:29 | XMS_ITS | Encounter Summary ---
Author Organization [facility] Address [address] [place] [address] Care Team Providers Care Concrete Products Dispatcher Name Role Phone Unavailable Primary Care Provider Unavailabl e Encounter Details Date Type Department Care Team (Late st Contact Info) Description 02/13/2012 Results Only [facility] Laboratory Services - [facility] ([facility]) [address] [place] [address] [id number] Eber Fraser DPM [address] [place] [phone] Social History Tobacco Use Types Packs/Day Years Used Date Smoking Tobacco: Never Assessed Sex and Gender Information Value Date Recorded Sex Assigned at Not on file Gender Identity Not on file Sexual Orientation Not on file documented as of this encounter Plan of Treatment Not on file documented as of this encounter Procedures Procedure Name Priority Date/Time Associated Diagnosis Comments SURGICAL PATHOLOGY Routine 02/13/2012 0:00 EDT documented in this encounter Results * SURGICAL PATHOLOGY (02/13/2012 0:00 EDT) Pathology Report: SURGICAL PATHOLOGY REPORT Reports generated via electronic interface contain original data; however they are lacking the format of the original report. Caution should be taken when reading/interpreti ng unformatted reports. Name: ? ODALIS CARROLL ? Accession #: ? [id number] ? : ? 1970 (Age: 41) ??F ? Collect Date: ? 02/13/2012 ? Location: ? [facility] ? Receive Date: ? 02/13/2012 ? Provider: EBER FRASER DPM Copy to: ROSY IBIS RN INTERNAL MEDICINE ? Final Pathologic Diagnosis: ? Soft tissue of foot, left, excision: - Neuroma. Document reviewed and electronically signed by: GAVINO ALEX MD Report ??Date: 02/17/2012 22:19 By the signature above, the attending physician certifies that he/she has personally conducted a gross and/or microscopic examination of the described specimens and rendered or confirmed the above diagnosis. Specimen(s) Received: ? Neuroma left foot Clinical History: ? Neuroma left foot Gross Description: ? Received in formalin labelled Odalis Carroll and neuroma left foot is a wolf-yellow to white, fibrous, unoriented 1.6 x 0.6 x 0.3 cm soft tissue. ??The surgical margins are inked. ??The specimen is entirely submitted in one cassette. (Britni Gale)/mpl End of Report [facility] 02/13/2012 02/13/2012 10: 03 EDT Eber Fraser DPM PATHOLOGY ORDERAB LES [facility] [address] [place] [address] documented in this encounter Visit Diagnoses Not on filedocumented in this encounter
--- OUTSIDE RECORDS SUMMARY | 2024-06-30 21:29 | XMS_ITS | Encounter Summary ---
[place] [address] Care Team Providers Care Marker Delivery Name Role Phone Octavia Warner APRN Primary Care Provider [phone] Encounter Details Date Type Department Care Team (Late st Contact Info) Description 07/19/2019 Telephone [place] [phone] Coco Dutton Social History Tobacco Use Types Packs/Day Years Used Date Smoking Tobacco: Never Smokeless Tobacco: Never Sex and Gender Information Value Date Recorded Sex Assigned at Not on file Gender Identity Not on file Sexual Orientation Not on file documented as of this encounter Miscellaneous Notes * Telephone Encounter - Coco Dutton - 07/19/2019 10:23 AM EDT Odalis called for an update on her BSP chart. As of today she will need to provide the following 1. PCP letter of support 2. Psychological Eval(s) - [facility] 07/20 3. 2 remaining months of Dietary Counseling 4. Colonoscopy Results - [facility]. 08/22 5. Has Sleep Eval on 08-11 - will need those results She is aware that her NPW will be scheduled upon the completion of her requirements of the program documented in this encounter Plan of Treatment Not on file documented as of this encounter Visit Diagnoses Not on filedocumented in this encounter Care Teams Marker Delivery Relationship Specialty Start Date End Date Octavia Warner APRN [address] [place] [address] PCP - General Family Medicine 06/02/19 documented as of this encounter
--- OUTSIDE RECORDS SUMMARY | 2024-06-30 21:29 | XMS_ITS | Encounter Summary ---
Author Organization [place] [address] Care Team Providers Care Trimming Cutter Machine Name Role Phone Erna Garcia MD Primary Care Provider [phone] Encounter Details Date Type Department Care Team (Late st Contact Info) Description 11/04/2017 Telephone Dermatology at [facility] [address] [place] [address] Sonam Best MD [facility] DR [address] [place] [address] Social History Tobacco Use Types Packs/Day Years Used Date Smoking Tobacco: Never Smokeless Tobacco: Never Sex and Gender Information Value Date Recorded Sex Assigned at Not on file Gender Identity Not on file Sexual Orientation Not on file documented as of this encounter Miscellaneous Notes * Telephone Encounter - Sonam Best - 11/04/2017 11:23 AM EST Called regarding hair loss labs. Ferritin and Vit D were low. Recommended Vit D3 2000IU per day and ferrous gluconate 325mg tablets once daily for a week or so to see if she tolerates it then increase to twice daily. Reviewed this can cause some N/V, stomach upset and constipation in some people. Asked her to call back with any questions. She should f/u in 6 months for recheck of labs and recheck of hair loss. documented in this encounter Plan of Treatment Not on file documented as of this encounter Visit Diagnoses Not on filedocumented in this encounter Care Teams Trimming Cutter Machine Relationship Specialty Start Date End Date Erna Garcia MD [address] [place] [address] PCP - General Family Medicine 09/18/17 06/01/19 documented as of this encounter
--- OUTSIDE RECORDS SUMMARY | 2024-06-30 21:29 | XMS_ITS | Encounter Summary ---
Author Organization [facility] [place] [address] Care Team Providers Care Box Office Attendant Name Role Phone Erna Garcia MD Primary Care Provider [phone] Encounter Details Date Type Department Care Team (Late st Contact Info) Description 05/24/2019 Telephone Dermatology at [facility] [address] [place] [phone] Clarence Schmid MD [facility] [address] [place] [address] Social History Tobacco Use Types Packs/Day Years Used Date Smoking Tobacco: Never Smokeless Tobacco: Never Sex and Gender Information Value Date Recorded Sex Assigned at Not on file Gender Identity Not on file Sexual Orientation Not on file documented as of this encounter Miscellaneous Notes * Telephone Encounter - Cecilia Giron - 05/24/2019 10:40 AM EDT Campos Mckeon reached out and stated that Dr. Schmid is not affiliated with [place] [employer] and they willnot cover patient's dapsone (ACZONE) 5 % Gel script. The best number to reach Campos Mckeon is [phone]. Cecilia Giron, Clinical Electric Power Line Examiner documented in this encounter Plan of Treatment Not on file documented as of this encounter Visit Diagnoses Not on filedocumented in this encounter Care Teams Box Office Attendant Relationship Specialty Start Date End Date Erna Garcia MD [address] [place] [address] PCP - General Family Medicine 09/18/17 06/01/19 documented as of this encounter
--- OUTSIDE RECORDS SUMMARY | 2024-06-30 21:29 | XMS_ITS | Encounter Summary ---
Author Organization [facility] Address [address] [place] [address] Care Team Providers Care Sas Clinical Programmer Name Role Phone Carrie Herrera [employer] Primary Care Provider [phone] Encounter Details Date Type Department Care Team (Late st Contact Info) Description 08/22/2019 Results Only [facility] [phone] Cassie Pineda MD [address] [place] [address] [address] [place], [place] [id number] Social History Tobacco Use Types Packs/Day Years Used Date Smoking Tobacco: Never Assessed Sex and Gender Information Value Date Recorded Sex Assigned at Not on file Gender Identity Not on file Sexual Orientation Not on file documented as of this encounter Plan of Treatment Not on file documented as of this encounter Procedures Procedure Name Priority Date/Time Associated Diagnosis Comments SURGICAL PATHOLOGY Routine 08/22/2019 16 :37 EDT documented in this encounter Results * SURGICAL PATHOLOGY (08/22/2019 16:37 EDT) Pathology Report: SURGICAL PATHOLOGY REPORT Reports generated via electronic interface contain original data; however they are lacking the format of the original report. Caution should be taken when reading/interpret ing unformatted reports. Name: ? ODALIS CARROLL ? Accession #: ? [id number] ? : ? 1970 (Age: 49) ??F ? Collect Date: ? 08/22/2019 ? Location: ? [facility] ? Receive Date: ? 08/22/2019 ? Provider: CASSIE PINEDA MD Copy to: SHANNA GONZALEZ SPECIAL PROCEDURES NURSE ? Final Pathologic Diagnosis: A. ??COLON, TRANSVERSE, [...] or confirmed the above diagnosis. Specimen(s) Received: A. ??Transverse colon polyp B. ??Rectal polyps x2 Clinical History: Colon cancer screening Gross Description: A. ?Received in formalin labelled with proper patient identification (initials C, R) and transverse colon polyp are two wolf irregular tissues, 0.1 x 0.1 x 0.1 cm and 0.2 x 0.2 x 0.1 cm. Entirely submitted in A1. B. ?Received in formalin labelled with proper patient identification (initials C, R) and rectal polyp x2 are two pale to brown irregular to nodular tissues ranging from less than 0.1 cm in greatest dimension to 0.2 x 0.2 x 0.2 cm. The specimen is entirely submitted in B1 however the smaller tissue may not survive processing. ASAEL Estrada (ASCP) 08/22/2019 5:33 PM End of Report [facility] 08/22/2019 16:3 7 EDT 08/22/2019 16:37 EDT Cassie Pineda MD PATHOLOGY ORDERJose A GAMA [facility] [address] [place] [address] documented in this encounter Visit Diagnoses Not on filedocumented in this encounter Care Teams Sas Clinical Programmer Relationship Specialty Start Date End Date Carrie Herrera FNP [address] [place], [place] [id number] PCP - General 02/17/12 documented as of this encounter
--- OUTSIDE RECORDS SUMMARY | 2024-06-30 21:29 | XMS_ITS | Encounter Summary ---
Author Organization [place] [address] Care Team Providers Care Straightener And Aligner Name Role Phone Erna Garcia MD Primary Care Provider [phone] Reason for Visit * Reason Comments Acne Alopecia Follow-up Encounter Details Date Type Department Care Team (Late st Contact Info) Description 02/24/2019 1:30 PM EDT Office Visit Dermatology at [facility] [address] [place] [address] Clarence Schmid MD [facility] [address] [place] [address] Perioral dermatitis; Androgenetic alopecia Social History Tobacco Use Types Packs/Day Years Used Date Smoking Tobacco: Never Smokeless Tobacco: Never Sex and Gender Information Value Date Recorded Sex Assigned at Not on file Gender Identity Not on file Sexual Orientation Not on file documented as of this encounter Progress Notes * Clarence Schmid - 02/24/2019 1:30 PM EDT Images from the original note were not included. DERMATOLOGY - ESTABLISHED PATIENT FOLLOW-UP Date of service: 02/24/2019 Odalis Garzon : 1970, 48 y.o. Chief Complaint: Chief Complaint Patient presents with ??? Acne ??? Alopecia ??? Follow-up HPI: Odalis Garzon is a 48 y.o. female last seen by myself on 05/20/2018. Ms. Garzon returns today for hair loss and acne follow up. Patient has been taking Spironolactone 50mg daily. Patient states that it is hard to say if it has helped the hair loss but it did help theacne until recently when she began to flare again. Mostly small monomorphic papules on the face, norelation to menstrual cycle. Relevant Skin History: - Skin cancer (including type): none - none ?? Family History: Melanoma: no ?? Social History: - lives on [facility] - [employer] for elementary school - 2 children - Medications: Current Outpatient Medications Medication Sig Dispense Refill ??? spironolactone (ALDACTONE) 50 mg Tablet Take 1 tablet by mouth 2 times daily. 90 tablet 3 ??? simvastatin (ZOCOR) 20 mg tablet No current facility-administered medications for this visit. [...] on standby during my examination. 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 -continue Spironolactone 50 mg p.o. twice daily - can consider recheck of Vit. D and iron panel on follow up # Perioral dermatitis vs Adult onset acne: Patient with several scattered erythematous papules along the jawline and perioral region. Although due to the distribution hormonal etiology cannot be excluded, favor a perioral dermatitis with the distinctive monomorphic papules. Will pursue tetracyclinethat would treat both - Rx: doxycycline 100 mg PO BID x 3 months. - Counseled: risks of doxycycline including but not limited to nausea, photosensitivity as well as bacteria resistance. Recommend taking with a full stomach after a meal, with a glass of water and donot lay down for 30min after taking, avoid calcium, magnesium or multivitamin supplements while taking the medication RTC: 3 lopez Note initiated by Kori Blunt LPN. I, Kori Blunt LPN, have performed the documentation for this encounter in the presence of and acting as a scribe for Clarence Schmid MD. I performed the services which were documented by the scribe, and I agree with the accuracy of the documentation in this encounter. Clarence Schmid MD Reviewed and signed by: Clarence Schmid MD Resident in Dermatology [facility] Patient seen and evaluated with staff craps dealer: Mitchell Villalobos MD Section of Dermatology [facility] * Mitchell Villalobos III, MD - 02/24/2019 1:30 PM EDT I directly supervised Dr. Spenser Schmid during this office visit. He presented the history and physical exam to me. I then saw and examined this patient with Dr. Schmid. We reviewed the history and pertinent details and I confirmed the physical findings. I agree with the details of the history and physical exam as documented in Dr. Schmid's note. MITCHELL VILLALOBOS III, MD Staff Physician documented in this encounter Plan of Treatment Not on file documented as of this encounter Visit Diagnoses Diagnosis Perioral dermatitis Rosacea Androgenetic alopecia Other alopecia documented in this encounter Care Teams Straightener And Aligner Relationship Specialty Start Date End Date Erna Garcia MD [address] [place] [id number] PCP - General Family Medicine 09/18/17 06/01/19 documented as of this encounter
--- OUTSIDE RECORDS SUMMARY | 2024-06-30 21:29 | XMS_ITS | Encounter Summary ---
Author Organization [facility] [place] [address] Care Team Providers Care Sample Washer Name Role Phone Octavia Warner APRN Primary Care Provider [phone] Encounter Details Date Type Department Care Team (Late st Contact Info) Description 04/26/2004 [place] [id number] Nabil Arizmendi MD [address] [place] [address] Social History Tobacco Use Types Packs/Day Years Used Date Smoking Tobacco: Never Assessed Sex and Gender Information Value Date Recorded Sex Assigned at Not on file Gender Identity Not on file Sexual Orientation Not on file documented as of this encounter Plan of Treatment Not on file documented as of this encounter Procedures Procedure Name Priority Date/Time Associated Diagnosis Comments SURGICAL PATHOLOGY REPORT Routine 04/26/2004 10:35 AM EDT documented in this encounter Results * Surgical Pathology Report (04/26/2004 10:35 AM EDT) Surgical Pathology Report [id number] ? Location: The signing pathologist has (i) examined the relevant preparation(s) for the specimen(s) and (ii) rendered or confirmed the diagnosis(es). . ?Pathology Surgical Pathology Final Report Clinical Information Specimen Submitted: A - Liposuction (gross only) left breast Clinical History: Breast asymmetry Gross Description Labeled/Fixative: ? Liposuction ( gross only), left breast; fresh. Qty/Size/Weight: ?409-cc aggregate of liquefied fat and fluid. Sections/Processi ng: ??No sections are submitted. ??Gross diagnosis only. ?jmp/EJR Diagnosis Consistent with liposuctioned fat. ?? Gross surgical pathology examination. CR-0 04/26/04 JMP 04/30/04 Verified by: ? Minerva Hurtado, DO ?Pathologist ?(Electronic Signature) The attending pathologist whose signature appears on this report has reviewed all diagnostic slides and has edited the gross and/or microscopic portion of the report in rendering the final pathologic diagnosis. TRISH THAKKAR 04/26/2004 10:3 5 AM EDT Nabil Arizmendi MD PATHOLOGY/CYTOLOGY O RDERABLES Performing Organization Address City/State/[facility] Co de Phone Number TRISH THAKKAR documented in this encounter Visit Diagnoses Not on filedocumented in this encounter Care Teams Sample Washer Relationship Specialty Start Date End Date Octavia Warner APRN [address] [place] [address] PCP - General Family Medicine 06/02/19 documented as of this encounter
--- OUTSIDE RECORDS SUMMARY | 2024-06-30 21:29 | XMS_ITS | Encounter Summary ---
Author Organization [facility] [place] [address] Care Team Providers Care Fountain Roller Assembler Name Role Phone Erna Garcia MD Primary Care Provider [phone] Reason for Visit * Reason Comments Follow-up Encounter Details Date Type Department Care Team (Late st Contact Info) Description 05/20/2018 10:00 AM EDT Office Visit Dermatology at [facility] [address] [place] [address] Clarence Schmid MD [facility] [address] [place] [address] Acne, unspecified acne type; Androgenetic alopecia Social History Tobacco Use Types Packs/Day Years Used Date Smoking Tobacco: Never Smokeless Tobacco: Never Sex and Gender Information Value Date Recorded Sex Assigned at Not on file Gender Identity Not on file Sexual Orientation Not on file documented as of this encounter Progress Notes * Clarence Schmid - 05/20/2018 10:00 AM EDT Images from the original note were not included. DERMATOLOGY - ESTABLISHED PATIENT FOLLOW-UP Date of service: 05/20/2018 Odalis Garzon : 1970, 48 y.o. Chief Complaint: Chief Complaint Patient presents with ??? Follow-up HPI: Odalis Garzon is a 48 y.o. female last seen by on 10/26/2017. Ms. Garzon returns today for follow up of hair loss. Pt states she was advised to treat with Iron,Vitamin D3 and Biotin. She began treatment mid October 2017 and within 2 weeks she began to have cystic acne, thought to be secondary to biotin; went to her PCP who advised her to d/c medications. By the end of December she d/c Iron, Vitamin D3 and Biotin. Pt has not seen OBGYN to evaluate for PCOS. Currently only treating the hair loss with with color powder on her scalp. Pt states she has thinning, denies patches of hair loss, has tried Rogaine in the past and developed an acute rash to the bone within weeks and discontinue shortly thereafter. Relevant Skin History: - Skin cancer (including type): none - none Family History: Melanoma: no Social History: - lives on [facility] - [employer] General [employer] for elementary school - 2 children - Medications: Current Outpatient Prescriptions Medication Sig Dispense Refill ??? simvastatin (ZOCOR) 20 mg tablet No current facility-administered medications for this visit. Allergies: No Known Allergies Review of Systems: - General: Feels well. - Skin: No other skin concerns. Examination: - Constitutional: Patient was alert, well-appearing and in no noticeable distress. - Skin: A focused skin exam was performed of the scalp, face, ears, neck Diagnosis/Skin findings/Assessment/Plan: 1. 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 Pull test negative -Rx: Spironolactone 50 mg p.o. twice daily, with plans to increase to 100 mg twice daily as tolerated upon follow-up -CMP today 2. Adult onset acne: Patient with several scattered erythematous papules along the jawline and perioral region. Per history coincides with use of biotin, although due to the distribution hormonal etiology cannot be excluded -Spironolactone as described above RTC: 3 months The following photos were obtained with patient consent: Note initiated by [facility] ALEXANDER RN. I performed the above scribed service and agree with the accuracy of the documentation in this encounter. Reviewed and signed by: Clarence Schmid MD Resident in Dermatology [facility] Patient seen and evaluated with staff scrap baler: Shanna Encarnacion MD Section of Dermatology [facility] * Shanna Encarnacion MD - 05/20/2018 10:00 AM EDT I directly supervised Dr. Schmid during this office visit. Dr. Schmid presented the history and physical exam to me. I then saw and examined this patient with Dr. Schmid. We reviewed the history and pertinent details and I confirmed the physical findings. I agree with the details of the history and physical exam as documented in Dr. Schmid's note. SHANNA ENCARNACION MD Staff Physician documented in this encounter Plan of Treatment Not on file documented as of this encounter Procedures Procedure Name Priority Date/Time Associated Diagnosis Comments COMPREHENSIVE METABOLIC PANEL Routine 05/20/2018 11:15 AM EDT Acne, unspecified acne type documented in this encounter Results * Comprehensive metabolic panel (non-fasting) (05/20/2018 11:15 AM EDT) Glucose 99 65 - 199 mg/dL [facility] Comment:Diabetes: >=200 mg/d L plus symptoms Blood Urea Nitrogen 10 8 - 18 mg/dL [facility] Creatinine 0.91 0.70 - 1.20 mg/dL [facility] Sodium 141 135 - 145 mmol/L [facility] Potassium 4.5 3.5 - 5.0 mmol/L [facility] Comment: Please note: ??Patients with WBC >100,000 may have falsely elevated Potassium levels. ??For accurate Potassium quantification in these patients send serum separator tube (gold top) for subsequent determinations. ??Contact the Clinical Chemistry Laboratory if there are any questions. Chloride 102 98 - 107 mmol/L [facility] Carbon Dioxide 26 22 - 31 mmol/L [facility] Anion Gap 13 5 - 15 mmol/L [facility] Calcium 9.6 8.5 - 10.5 mg/dL [facility] Protein, Total 6.9 6.1 - 8.0 gm/dL [facility] Albumin 4.0 3.2 - 5.2 gm/dL [facility] Aspartate Aminotransferase 13 0 - 30 unit/L [facility] Alanine Aminotransferase 11 0 - 30 unit/L [facility] Alkaline Phosphatase 64 40 - 104 unit/L [facility] Bilirubin, Total 0.4 0.2 - 1.3 mg/dL [facility] Est Glomerular Filtration Rate 74 >=60 mL/min/1. 73 m?? [facility] Comment: The eGFR was calculated using the CKD-EPI equation. As with all creatinine based estimates of kidney function, eGFR values calculated with the CKD-EPI equation are not accurate in patients with acute kidney failure, extremes of body mass or the acutely ill. http://Lingvist/Telovationsnkdep http://Lingvist/[facility] NORMANnkf eGFR 86 >=60 mL/min/1. 73 m?? [facility] Comment: The eGFR was calculated using the CKD-EPI equation. As with all creatinine based estimates of kidney function, eGFR values calculated with the CKD-EPI equation are not accurate in patients with acute kidney failure, extremes of body mass or the acutely ill. http://Lingvist/Telovationsnkdep http://Lingvist/[facility]f Blood specimen (specimen) 05/20/2018 11:15 AM EDT 05/20/2018 1:02 PM EDT Narrative Resulting Agency Comment Spec In Lab Shanna Encarnacion MD CHEMISTRY ORDERABLES [facility] [place] [address] documented in this encounter Visit Diagnoses Diagnosis Acne, unspecified acne type Androgenetic alopecia Other alopecia documented in this encounter Care Teams Fountain Roller Assembler Relationship Specialty Start Date End Date Erna Garcia MD [address] [place] [address] PCP - General Family Medicine 09/18/17 06/01/19 documented as of this encounter
--- OUTSIDE RECORDS SUMMARY | 2024-06-30 21:29 | XMS_ITS | Encounter Summary ---
Author Organization [facility] [place] [address] Care Team Providers Care [employer] Resource Teacher Name Role Phone Erna Garcia MD Primary Care Provider Encounter Details Date Type Department Care Team (Late st Contact Info) Description 05/21/2018 Telephone Dermatology at [facility] [address] [place] [address] Kadie Decker RN Social History Tobacco Use Types Packs/Day Years Used Date Smoking Tobacco: Never Smokeless Tobacco: Never Sex and Gender Information Value Date Recorded Sex Assigned at Not on file Gender Identity Not on file Sexual Orientation Not on file documented as of this encounter Miscellaneous Notes * Telephone Encounter - Kadie Decker RN - 05/21/2018 10:32 AM EDT I called pt and spoke to her about lab results, she was happy to hear they look good. Knows to begin Spironolactone and will picker operator later today or tomorrow. Pharmacy is in [place] to sign prescription. Kadie Decker RN * Telephone Encounter - Kadie Decker RN - 05/21/2018 10:32 AM EDT ----- Message from Clarence Schmid MD sent at 05/20/2018 9:51 PM EDT ----- Anatoly Fischer, Would you mind calling patient to let her know that her labs look good we will start the spironolactone. Also we need a pharmacy, thanks documented in this encounter Plan of Treatment Not on file documented as of this encounter Visit Diagnoses Not on filedocumented in this encounter Care Teams [employer] Resource Teacher Relationship Specialty Start Date End Date Erna Garcia MD [address] [place] [address] PCP - General Family Medicine 09/18/17 06/01/19 documented as of this encounter
--- OUTSIDE RECORDS SUMMARY | 2024-06-30 21:29 | XMS_ITS | Referral Summary ---
Author Organization [facility] Address [address] [place] [address] Care Team Providers Care Hip Hop Dance Instructor Name Role Phone Carrie Herrera Primary Care Provider [phone] Social History Tobacco Use Types Packs/Day Years Used Date Smoking Tobacco: Never Assessed Interpersonal Safety Answer Date Record ed Physically Hurt Never 06/24/2020 Verbally Threaten Not on file 06/24/2020 Sex and Gender Information Value Date Recorded Sex Assigned at Not on file Gender Identity Not on file Sexual Orientation Not on file Plan of Treatment Not on file Care Teams Hip Hop Dance Instructor Relationship Specialty Start Date End Date Carrie Herrera FNP [address] [place] [address] PCP - General 02/17/12
--- OUTSIDE RECORDS SUMMARY | 2024-06-30 21:29 | XMS_ITS | Encounter Summary ---
Author Organization [facility] Address [address] [place] [address] Care Team Providers Care Slot Attendant Name Role Phone Unavailable Primary Care Provider Unavailabl e Encounter Details Date Type Department Care Team (Late st Contact Info) Description 03/24/2007 Results Only [facility] conversion [address] [place] [address] Rosy Herrera FNP [address] [place], [place] [id number] Social History Tobacco Use Types Packs/Day Years Used Date Smoking Tobacco: Never Assessed Sex and Gender Information Value Date Recorded Sex Assigned at Not on file Gender Identity Not on file Sexual Orientation Not on file documented as of this encounter Plan of Treatment Not on file documented as of this encounter Procedures Procedure Name Priority Date/Time Associated Diagnosis Comments CYTOPATHOLOGY Routine 03/24/2007 0:00 EDT documented in this encounter Results * CYTOPATHOLOGY (03/24/2007 0:00 EDT) Pathology Report: CYTOPATHOLOGY REPORT Reports generated via electronic interface contain original data; however they are lacking the format of the original report. Caution should be taken when reading/interpreti ng unformatted reports. Name: ? ODALIS CARROLL ? Accession #: ? [id number] : ? 1970 (Age: 36) ??F ?Collect Date: ? 03/24/2007 Location: ? [facility] ? Receive Date: ? 03/25/2007 Provider: ?ROSY HERRERA FLORAL MERCHANDISER Copy to: ? Specimen/Source: ?ThinPrep Pap Test, Cervix/Endocervix, processed on [employer] ThinPrep Imaging System, with manual evaluation Last [...] Report Date: ??03/30/2007 09:00 End of Report [facility] 03/24/2007 03/25/2007 Rosy Herrera FLORAL MERCHANDISER PATHOLOGY ORDERABLES [facility] [address] [place] [address] documented in this encounter Visit Diagnoses Not on filedocumented in this encounter
--- OUTSIDE RECORDS SUMMARY | 2024-06-30 21:29 | XMS_ITS | Encounter Summary ---
Author Organization [facility] Address [address] [place] [address] Care Team Providers Care Orthopedic Specialist Name Role Phone Carrie Herrera VALET ATTENDANT Primary Care Provider [phone] Encounter Details Date Type Department Care Team (Late st Contact Info) Description 02/05/2018 Results Only [facility] [phone] Shanna Gonzalez, WAREHOUSE SHIPPING ASSOCIATE [address] [facility] [address] [place] [id number] Social History Tobacco Use Types Packs/Day Years Used Date Smoking Tobacco: Never Assessed Sex and Gender Information Value Date Recorded Sex Assigned at Not on file Gender Identity Not on file Sexual Orientation Not on file documented as of this encounter Plan of Treatment Not on file documented as of this encounter Procedures Procedure Name Priority Date/Time Associated Diagnosis Comments PAP TEST- RESULT ONLY Routine 02/05/2018 0:00 EDT documented in this encounter Results * PAP TEST- RESULT ONLY (02/05/2018 0:00 EDT) Pathology Report: CYTOPATHOLOGY REPORT Reports generated via electronic interface contain original data; however they are lacking the format of the original report. Caution should be taken when reading/interpreti ng unformatted reports. Name: ? ODALIS CARROLL ? Accession #: ? [id number] ? : ? 1970 (Age: 47) ??F ?Collect Date: ? 02/05/2018 ? Location: ? [facility] ? Receive Date: ? 02/09/2018 ? Provider: SHANNA GOZNALEZ WAREHOUSE SHIPPING ASSOCIATE Copy to: ? Final Report SPECIMEN ADEQUACY ? Satisfactory for Evaluation - transformation zone component present GENERAL CATEGORIZATION ? Negative for Intraepithelial Lesion or Malignancy ?? Last Menstrual Period: 01/22/18 Specimen/Source: ??Pap Test, Cervix, ThinPrep Imaging System with manual evaluation Document reviewed and electronically signed by: ? Cassandra Red, CT(ASCP)(IAC) ? Report ??Date: 02/12/2018 14:53 HPV with Pap Test ? Date Ordered: ? 02/12/2018 ? Status: ?? Signed Out ?Date Complete: ? 02/15/2018 ? By: ??System Interface ? Date Reported: ? 02/15/2018 ? Interpretation RESULT: Negative for HPV. No E6 or E7 mRNA is detected from HPV types 16,18,31,33,35, 39,45,51,52,56,58, 59,66, and 68 by ropeman mediated amplification. Comments Document reviewed and electronically signed by: ? System Interface ? Report date: 02/15/2018 By the signature above, the attending physician certifies that he/she has personally conducted a gross and/or microscopic examination of the described specimens and rendered or confirmed the above diagnosis. End of Report [facility] 02/05/2018 02/09/2018 Shanna Gonzalez WAREHOUSE SHIPPING ASSOCIATE PATHOLOGY ORDERAB LES [facility] [address] [place] [address] documented in this encounter Visit Diagnoses Not on filedocumented in this encounter Care Teams Orthopedic Specialist Relationship Specialty Start Date End Date Carrie Herrera FNP [address] [place] [address] PCP - General 02/17/12 documented as of this encounter
--- OUTSIDE RECORDS SUMMARY | 2024-06-30 21:29 | XMS_ITS | Clinical Summary ---
Author Organization [facility] [place] [address] Care Team Providers Care Pigs Feet Cleaner Name Role Phone Octavia Warenr APRN Primary Care Provider [phone] Allergies No known active allergies Medications Medication Sig Dispensed Refills Start Date End Date Status spironolactone (ALDACTONE) 50 mg Tablet Take 1 tablet by mouth 2 times daily. 180 tablet 1 02/24/2019 Active doxycycline (VIBRAMYCIN) 100 mg Capsule Take one capsule by mouth twice daily. Take with full glass of water and food. Do not take calcium or multivitamin supplements 180 capsule 02/24/2019 Active Additional Information Patient not taking.Reported on 08/11/2019 dapsone (ACZONE) 5 % GelIndications:Acn e, unspecified acne type apply to the face twice daily 90 g 1 05/26/2019 Active atorvastatin (LIPITOR) 20 mg Tablet 0 08/01/2019 Active Active Problems No known active problems Social History Tobacco Use Types Packs/Day Years Used Date Smoking Tobacco: Never Smokeless Tobacco: Never Sex and Gender Information Value Date Recorded Sex Assigned at Not on file Gender Identity Not on file Sexual Orientation Not on file Last Filed Vital Signs Vital Sign Reading Time Taken Comments Blood Pressure 143/84 08/11/2019 10:18 AM EDT Pulse 65 08/11/2019 10:18 AM EDT Temperature - - Respiratory Rate - - Oxygen Saturation 99% 08/11/2019 10:18 AM EDT Inhaled Oxygen Concentration - - Weight 91.6 kg (202 lb) 08/11/2019 10:18 AM EDT Height 152.4 cm (5') 08/11/2019 10:18 AM EDT Body Mass Index 39.45 08/11/2019 10:18 AM EDT Plan of Treatment Health Maintenance Due Date Last Done Comments CT Colonography 1970 Colonoscopy 1969 Colorectal Cancer Screening 1970 FIT DNA 1970 FIT 1970 Sigmoidoscopy (10 year) with FIT yearly 1969 Sigmoidoscopy 1970 HIV screen 1987 Hepatitis C Screening 1987 Hepatitis B vaccine (0-59 yrs) (1) 1988 Tdap adult 1988 Tetanus vaccine 1988 HPV test 1999 PAP Smear 1999 Breast Cancer Share Decision Needed 2009 Breast Cancer screening 2009 Zoster vaccine (1 of 2) 2019 Covid-19 Vaccine (1 - 2022- season) 2023 Advance Directive 2024 Influenza (Flu) vaccine (1 o f 1 - Influenza standard series) 07/24/2024 Diabetes Screening (HgbA1C or Glucose) Discontinued , 05/20/2018 Procedures Procedure Name Priority Date/Time Associated Diagnosis Comments COMPREHENSIVE METABOLIC PANEL Routine 05/23/2019 2:21 PM EDT High risk medication use from Last 3 Months or Most Recently Relevant to Health Maintenance Results * Comprehensive metabolic panel (non-fasting) (05/23/2019 2:21 PM EDT) Glucose 88 65 - 199 mg/dL [facility] Comment:Diabetes: >=200 mg/d L plus symptoms Blood Urea Nitrogen 15 8 - 18 mg/dL [facility] Creatinine 1.02 0.70 - 1.20 mg/dL [facility] Sodium 142 135 - 145 mmol/L [facility] Potassium 4.4 3.5 - 5.0 mmol/L [facility] Comment: Please note: ??Patients with WBC >100,000 may have falsely elevated Potassium levels. ??For accurate Potassium quantification in these patients send serum separator tube (gold top) for subsequent determinations. ??Contact the Clinical Chemistry Laboratory if there are any questions. Chloride 103 98 - 107 mmol/L [facility] Carbon Dioxide 25 22 - 31 mmol/L [facility] Anion Gap 14 5 - 15 mmol/L [facility] Calcium 9.4 8.5 - 10.5 mg/dL [facility] Protein, Total 7.3 6.1 - 8.0 gm/dL [facility] Albumin 4.6 3.2 - 5.2 gm/dL [facility] Aspartate Aminotransferase 15 0 - 30 unit/L [facility] Alanine Aminotransferase 19 0 - 30 unit/L [facility] Alkaline Phosphatase 72 40 - 104 unit/L [facility] Bilirubin, Total 0.3 0.2 - 1.3 mg/dL [facility] Est Glomerular Filtration Rate 64 >=60 mL/min/1. 73 m?? [facility] Comment: The eGFR was calculated using the CKD-EPI equation. As with all creatinine based estimates of kidney function, eGFR values calculated with the CKD-EPI equation are not accurate in patients with acute kidney failure, extremes of body mass or the acutely ill. [email or web address] eGFR 74 >=60 mL/min/1. 73 m?? [facility] Comment: The eGFR was calculated using the CKD-EPI equation. As with all creatinine based estimates of kidney function, eGFR values calculated with the CKD-EPI equation are not accurate in patients with acute kidney failure, extremes of body mass or the acutely ill. [email or web address] Blood specimen (specimen) 05/23/2019 2:21 PM EDT 05/23/2019 4:33 PM EDT Narrative Resulting Agency Comment Spec In Lab Brian Woods MD CHEMISTRY ORDERABLES [facility] [place] [address] from Last 3 Months or Most Recently Relevant to Health Maintenance Care Teams Pigs Feet Cleaner Relationship Specialty Start Date End Date Octavia Warner APRN [address] [place], [place] [address] PCP - General Family Medicine 06/02/19
--- OUTSIDE RECORDS SUMMARY | 2024-06-30 21:29 | XMS_ITS | Encounter Summary ---
Author Organization [facility] Address [address] [place] [address] Care Team Providers Care Money Counter Name Role Phone Carrie Herrera Primary Care Provider [phone] Encounter Details Date Type Department Care Team (Latest Contact Info) Description 08/22/2019 13:14 EDT - 08/22/2019 23:59 EDT Hospital Encounter [address] [address] Unknown, Provider, Discharge Disposition: Auto Discharge Social History Tobacco Use Types Packs/Day Years [...] on filedocumented in this encounter Care Teams Money Counter Relationship Specialty Start Date End Date Carrie Herrera FNP [address] [place] [address] PCP - General 02/17/12 documented as of this encounter
--- OUTSIDE RECORDS SUMMARY | 2024-06-30 21:29 | XMS_ITS | Encounter Summary ---
Author Organization [facility] Address [address] [place] [address] Care Team Providers Care X Ray Electronics Wireman Name Role Phone Javier Rosy MORALES Primary Care Provider [phone] Encounter Details Date Type Department Care Team (Late st Contact Info) Description 11/27/2014 Results Only [facility] Services - [facility] ([facility] [address] [place], [place] [id number] Rosy Herrera FNP [address] [place] [address] Social History Tobacco Use Types Packs/Day Years [...] Diagnosis Comments PAP TEST- RESULT ONLY Routine 11/27/2014 0:00 EST documented in this encounter Results * PAP TEST- RESULT ONLY (11/27/2014 0:00 EST) Pathology Report: CYTOPATHOLOGY REPORT Reports generated via electronic interface contain original data; however they are lacking the format of the original report. Caution should be taken when reading/interpreti ng unformatted reports. Name: ? ODALIS CARROLL ? Accession #: ? [id number] : ? 1970 (Age: 44) ??F ?Collect Date: ? 11/27/2014 Location: ? [facility] ? Receive Date: ? 11/29/2014 Provider: ?ROSY HERRERA CREATIVE PROJECT MANAGER Copy to: ? Specimen/Source: ?Pap Test, Cervix/Endocervix, ThinPrep Imaging System with manual evaluation Last Menstrual Period: ? 10/2014 Other: ? Additional clinical information: Lesions on R inner labia minora ? SPECIMEN ADEQUACY ? Satisfactory for Evaluation - transformation zone component absent GENERAL CATEGORIZATION ? Negative for Intraepithelial Lesion or Malignancy ? Document reviewed and electronically signed by: ? AFDIA Palacios(ASCP) ? Report Date: ??11/30/2014 14:03 End of Report [facility] 11/27/2014 11/29/2014 Rosy MORALES PATHOLOGY ORDERABLES [facility] [address] [place] [address] documented in this encounter Visit Diagnoses Not on filedocumented in this encounter Care Teams X Ray Electronics Wireman Relationship Specialty Start Date End Date Roys Herrera FNP [address] [place] [address] PCP - General 02/17/12 documented as of this encounter
--- OUTSIDE RECORDS SUMMARY | 2024-06-30 21:29 | XMS_ITS | Encounter Summary ---
Author Organization [facility] [place] [address] Care Team Providers Care Senior Electronics Technician Name Role Phone Octavia Warner APRN Primary Care Provider [phone] Encounter Details Date Type Department Care Team (Late st Contact Info) Description 08/12/2019 Orders Only [facility] [address] [place] [address] Ortiz Barragan MD [facility] [place] [address] Social History Tobacco Use Types Packs/Day Years Used Date Smoking Tobacco: Never Smokeless Tobacco: Never Sex and Gender Information Value Date Recorded Sex Assigned at Not on file Gender Identity Not on file Sexual Orientation Not on file documented as of this encounter Progress Notes * Ortiz Barragan MD - 08/12/2019 9:02 AM EDT Polysomnogram Order Form Room # Technologist Assignment: To be read by on PSG Patient Information Date of study: : 1970 Arrival Time: Name: Odalis Garzon 49 y.o. female Height: 5ft Weight: 39 Normal Sleep Hours: 10:30pm-11:30pm to 6:30-7AM Physical/Mobility Limitations: No Cognitive Limitations: No Requires Male Tech: No Requires Female Tech: No Requires 1:1 Care: No Requires Parent/Caregiver: No Using Home Oxygen: no At home sleeps in: yes PSG Indications: snoring, daytime fatigue, non restorative sleep, insomnia, RLS, pursing bariatric surgery Other Medical Conditions: no PSG Orders Type of study: PSG, Split AHI >30 and CMS>10 Additional data required: no Special instructions: no *Initiate CPAP/BPAP/oxygen per previously determined protocols unless otherwise specified. documented in this encounter Plan of Treatment Not on file documented as of this encounter Visit Diagnoses Not on filedocumented in this encounter Care Teams Senior Electronics Technician Relationship Specialty Start Date End Date Octavia Warner APRN [address] [place] [address] PCP - General Family Medicine 06/02/19 documented as of this encounter
--- OUTSIDE RECORDS SUMMARY | 2024-06-30 21:29 | XMS_ITS | Encounter Summary ---
Author Organization [facility] [place] [address] Care Team Providers Care Silica Filter Operator Name Role Phone Erna Garcia MD Primary Care Provider [phone] Encounter Details Date Type Department Care Team (Late st Contact Info) Description 05/30/2019 Telephone Dermatology at [facility] [address] [place] [id number] CallClarence MD [facility] [address] [place] [address] Social History Tobacco Use Types Packs/Day Years Used Date Smoking Tobacco: Never Smokeless Tobacco: Never Sex and Gender Information Value Date Recorded Sex Assigned at Not on file Gender Identity Not on file Sexual Orientation Not on file documented as of this encounter Miscellaneous Notes * Telephone Encounter - Clarence Schmid - 05/30/2019 12:34 PM EDT Called regarding labs. Triglycerides elevated at 353. Will need to repeat fasting at next appointment, will also fax to PCP documented in this encounter Plan of Treatment Not on file documented as of this encounter Visit Diagnoses Not on filedocumented in this encounter Care Teams Silica Filter Operator Relationship Specialty Start Date End Date Erna Garcia MD [address] [place] [address] PCP - General Family Medicine 09/18/17 06/01/19 documented as of this encounter
--- OUTSIDE RECORDS SUMMARY | 2024-06-30 21:29 | XMS_ITS | Encounter Summary ---
Author Organization [facility] [place] [address] Care Team Providers Care Iron Bender Name Role Phone Octavia Warner APRN Primary Care Provider [phone] Reason for Referral * Consultation (Routine) - Closed Specialty Diagnoses / Procedures Referred By Contac t Referred To Contact Sleep Center Diagnoses Snoring Fatigue, unspecified type Restless leg Procedures PRG POLYSOM 6+ YRS SLEEP W 4+ ADDL ANN Ortiz Richardson MD [facility] [place] [address] [facility] [address] [place] [address] Referral ID Status Reason Start Date Expiration Date V isits Requested Visits Authorized [id number] Closed Test Only 08/11/2019 08/10/2020 1 1 Reason for Visit * Consultation (Routine) - Closed Specialty Diagnoses / Procedures Referred By Contac t Referred To Contact Sleep Center Diagnoses INSOMNIA Octavia Warner APRN [address] [place] [address] [facility] [address] [place] [address] Referral ID Status Reason Start Date Expiration Date V isits Requested Visits Authorized [id number] Closed Consult, Test & Treat Connection Center 06/02/2019 06/01/2020 1 1 Encounter Details Date Type Department Care Team (Late st Contact Info) Description 08/11/2019 10:15 AM EDT Office Visit [facility] [address] [place] [address] Ortiz Barragan MD [facility] [place] [address] Snoring; Fatigue, unspecified type; Restless leg; Insomnia, unspecified type Social History Tobacco Use Types Packs/Day Years [...] Mass Index 39.45 08/11/2019 10:18 AM EDT documented in this encounter Progress Notes * Ortiz Barragan MD - 08/11/2019 10:15 AM EDT Sleep Medicine Consultation Note Chief Complaint: need to get sleep study HPI: Ms. Odalis Garzon is a 49 y.o. female seen at the request of Octavia Warner APRN for advice regarding suspected obstructive sleep apnea. Patient reports she in initial process of getting bariatric surgery. States she was required to be evaluated for sleep apnea. Patient does reports having trouble with falling and staying asleep for years. State its been worseover the past four years. Reports it takes her 20 minutes to couple hours to fall asleep. States 3-4 times a week on average able to fall asleep in 30 minutes. Has different thoughts appearing in mind which prevents from falling asleep. She has been tried melatonin, ambien, trazodone. Last time tried a medication was 6 months ago. She reports medication would initially help for about a week at most. She goes to bed around 10:30pm to 11:30pm. State turning her light out right away. Wake time is around 6:30 to 7AM. State her sleep scheduled used to vary previously however for past 3 weeks has been trying to keep same sleep schedule seven days a week. She has notices she is less irritable whenshe wakes in morning the past 3 weeks. Patient does report waking up 4 times on average from her sleep. She is unsure what the reasoning is however states she get out of bed, walks around and then tries to get back to sleep. Patient does report taking up to 15minutes to get out of bed in morning due to feeling tired. Patient was seen by behavioral health aide once who had recommend good sleep hygiene however patient reports she followed the sleep hygiene and did not benefit her. Further HPI: Snoring: yes Severity: has mentioned its very mild Frequency: happens on average once a week Duration: since high school years Over time: same Modifying factors: not sure Observed Apneas: no Mouth Breathing at night: no Dry Mouth in morning: no Nocturnal Gasping: no Nasal Obstruction: no Weight: 202lbs, has lost 10 to 12lb since beginning of the year Sleep Pattern: Location: in own room with Bed/Recliner/Wedge: bed # of pillows under head: one Position: mostly in lateral position Questionnaires: Patient-reported scores: [place] score is 5 Daytime Symptoms: Upon Awakening: tired Daytime fatigue/sleepiness: in afternoon feel fatigue and tired Naps: no Involuntary Dozing: no Cognitive Symptoms: no Driving: Difficulty with sleepiness and driving: no Close calls related to sleepiness: no Accidents related to sleepiness: no Sleep Review of Symptoms: Parasomnias: Sleep Walking: no Dream Enactment: no Bruxism: no Motor: RLS: has tense feeling in both leg which is worse when in bed laying. Patient states she moves around which make it feel better. Since high school was having crawling like sensation PLMS: no Narcolepsy: Hallucinations: no Paralysis: no Cataplexy: no Past/Childhood Sleep History: no Family History: Family history of sleep disorders: no There is no problem list on file for this patient. Past Medical History: Diagnosis Date ??? Obesity No past surgical history on file. Current Outpatient Medications Medication Sig Dispense Refill ??? atorvastatin (LIPITOR) 20 mg Tablet 0 ??? dapsone (ACZONE) 5 % Gel apply to the face twice daily 90 g 1 ??? spironolactone (ALDACTONE) 50 mg Tablet Take 1 tablet by mouth 2 times daily. 180 tablet 1 ??? doxycycline (VIBRAMYCIN) 100 mg Capsule Take one capsule by mouth twice daily. Take with full glass of water and food. Do not take calcium or multivitamin supplements (Patient not taking: Reported on 08/11/2019) 180 capsule 0 No current facility-administered medications for this visit. Social History: Employment: works from home. W Alcohol: once every couple week will have beer or glass wine Smoking: no Other drugs: no Caffeine: 2-3 cups (12oz) of coffee in morning Currently lives with with RYAN Rojas ROS: CON: weight change: see HPI ENT: nasal obstruction: see HPI NEURO: sleep related headaches: occasionally CV: chest pain: no Palpitations: no LE edema: no PUL: SOB: no PSY: Depression: no Anxiety: no GI: GERD: no : Nocturia: no MSK: Pain that interferes with sleep: no ALL: Environmental Allergies: no MSE: Alert and appropriate: no Oriented to person, place and time: 1/1 person, 3/3 place, 4/4 time Mood: okay Affect: mood congruent PE: General: calm and cooperative Body mass index is 39.45 kg/m??. Vitals: 08/11/19 1018 BP: 143/84 BP Location (NBP): Right arm Pulse: 65 SpO2: 99% Weight: 91.6 kg (202 lb) Height: 152.4 cm (5') Eyes: Conjunctival injection: no EOM: intact Eyelid hooding: no ENT: MP: 4/4 Facial deformity: no Hard palate: normal Soft palate: not visualized Gums and teeth: good dentition Tongue: normal Nares: patent Pul: Respirations: even, non labored Waking saturation at rest: 99% Neck/Lymphatics: Lymphadenopathy: no Masses: no Circumference: 14 1/4 inches CV; RRR, no murmurs, no lower ext. Edema Neuro: no tics or tremors. Gait stable Psych; mood fine affect mood congruent Assessment: Ms. Odalis Garzon is a 49 y.o. female who is seen to evaluate for possible obstructive sleep apnea. Patient presents with snoring, day time fatigue, non restorative sleep, in setting of BMI of 39 and MP4/4. Patient also presents with difficulty falling sleep for which she reports having failed to benefit from melatonin , trazodone and ambien in past. Patient did have erratic sleep schedule however past three weeks has been trying to keep fixed wake time schedule which benefited her mood upon waking up in morning. At this will recommend to proceed with in lab sleep study to further evaluate for sleep apnea. For insomnia, recommended patient to have fixed bedtime and wake time. Explained to patient it may take couple days to get used to the fixed sleep schedule however shouldexpect more consolidated sleep once able to follow normalized sleep schedule. Also mentioned to patient not to spend prolonged period of time (>20min) in bed if not able to sleep and should get out of bed room and do something which maybe relaxing and tiring to her before returning back to bed. Patient may potentially have underlying sleep apnea which may also be attributing to her restless sleep as well. The pathophysiology of, the reasons to treat and treatment options for obstructive sleep apnea were all reviewed with the patient today. Regarding her restless leg, patient does report having tense like sensation on her lower extremities which is worse in evening and when laying in bed. This tense like sensation is relieved once shegets up and moves around. Patient did have iron studies done in 10/26/17 which showed ferritin levelof 7 and saturation of 15. Patient seemed unsure if she had iron replacement or not at the time. Exp lained to patient the association of RLS with low iron level. At this time will repeat iron studiesand recommend iron replacement if ferritin level is less than 75. History provided by: patient Records reviewed:yes Patient mentions to call the sleep study and lab results to the number provided in medical records Recommendations: 1) in lab Polysomnography 2) Ferritin, Iron, TIBC level 3) normalize sleep schedule with fixed bedtime and wake time 4) Driving safety was reviewed with patient. If the patient feels too sleepy to drive she knows notto drive. If she becomes sleepy while driving she will sheeting puller and nap. The patient indicates understanding of these issues and agrees with the plan. Ortiz Barragan MD Sleep Fellow Case discussed with Dr. Fontaine. * Chelsy Fontaine MD - 08/11/2019 10:15 AM EDT I evaluated Ms. Odalis Garzon with Dr. Barragan and performed tovar aspects of the history and examination. I actively participated in the formulation of the management strategy. I have reviewed Dr. Barragan's note and agree with the assessment and recommendations. CHELSY FONTAINE MD documented in this encounter Plan of Treatment Scheduled Referrals Name Type Priority Associated Diagnoses Orde r Schedule Referral to Sleep Disorders Center Outpatient Referral Routine Snoring Fatigue, unspecified type Restless leg Ordered: 08/11/2019 documented as of this encounter Visit Diagnoses Diagnosis Snoring Other dyspnea and respiratory abnormality Fatigue, unspecified type Restless leg Restless legs syndrome (RLS) Insomnia, unspecified type documented in this encounter Care Teams Iron Bender Relationship Specialty Start Date End Date Octavia Warner APRN [address] [place] [address] PCP - General Family Medicine 06/02/19 documented as of this encounter
--- OUTSIDE RECORDS SUMMARY | 2024-06-30 21:29 | XMS_ITS | Encounter Summary ---
Author Organization [facility] Address [facility] [place] [address] Care Team Providers Care Tire Service Supervisor Name Role Phone Erna Garcia MD Primary Care Provider [phone] Reason for Visit * Reason Onset Date Comments Prior Authorization 05/30/2019 Encounter Details Date Type Department Care Team (Late st Contact Info) Description 05/30/2019 Telephone Dermatology at [facility] [address] [place] [address] Clarence Schmid MD [facility] [address] [place] [address] Prior Authorization Social History Tobacco Use Types Packs/Day Years Used Date Smoking Tobacco: Never Smokeless Tobacco: Never Sex and Gender Information Value Date Recorded Sex Assigned at Not on file Gender Identity Not on file Sexual Orientation Not on file documented as of this encounter Miscellaneous Notes * Telephone Encounter - Clarence Schmid - 05/31/2019 5:54 PM EDT We will hold on a topical for now as she will be starting accutane in the following month. Thank you for your help * Telephone Encounter - Erick Nunes - 05/30/2019 4:31 PM EDT PA request for Dapsone gel was denied as patient has not failed at least 2 preferred topical anti-effective acne products, such as: ?? Tretinoin ?? Tazorac ?? Benzoyl peroxide ?? Clindamycin ?? Erythromycin ?? Sodium sulfacetamide * Telephone Encounter - Erick Nunes - 05/30/2019 9:47 AM EDT PA request for Dapsone gel was submitted and faxed documented in this encounter Plan of Treatment Not on file documented as of this encounter Visit Diagnoses Not on filedocumented in this encounter Care Teams Tire Service Supervisor Relationship Specialty Start Date End Date Erna Garcia MD [address] [place] [address] PCP - General Family Medicine 09/18/17 06/01/19 documented as of this encounter
--- OUTSIDE RECORDS SUMMARY | 2024-06-30 21:29 | XMS_ITS | Encounter Summary ---
Author Organization [facility] Address [facility] [place] [address] Care Team Providers Care Time Lock Expert Name Role Phone Erna Garcia MD Primary Care Provider [phone] Reason for Visit * Reason Comments Skin Check Skin Lesion * Consultation (Routine) - Closed Specialty Diagnoses / Procedures Referred By Julián acuna Referred To Contact Dermatology Diagnoses removal of skin lesion - right mormonism, right forearm, left axilla Octavia Warner APRN [address] [place] [address] [facility] Dermatology [address] [place] [address] Referral ID Status Reason Start Date Expiration Date V isits Requested Visits Authorized [id number] Closed Consult, Test & [facility] 09/18/2017 09/18/2018 1 1 Encounter Details Date Type Department Care Team (Late st Contact Info) Description 10/26/2017 9:20 AM EST Office Visit Dermatology at [facility] [address] [place] [phone] Sonam Best MD [facility] [address] [address] Neoplasm of uncertain behavior of skin; Viral warts, unspecified type; Multiple benign nevi; Hair loss; Seborrheic keratosis Social History Tobacco Use Types Packs/Day Years Used Date Smoking Tobacco: Never Smokeless Tobacco: Never Sex and Gender Information Value Date Recorded Sex Assigned at Not on file Gender Identity Not on file Sexual Orientation Not on file documented as of this encounter Progress Notes * DomnadiaSonam E - 10/26/2017 9:20 AM EST Images from the original note were not included. DERMATOLOGY - NEW PATIENT NOTE Date of service: 10/26/2017 Odalis Garzon : 1970, 47 y.o. CC: waist up skin check and lesions of concern HPI: Odalis Garzon is a 47 y.o. female with hx of HLD and ?PCOS referred by Octavia Warner with the following concerns: - She is here today for a waist up skin check. She has areas of concern on her face and axilla, andforearms. - The area on her right mormonism came up like a pimple and is now crusty. - The other areas have been there since . The left axilla lesion is itchy and hurts sometimes. - Also has questions about hair loss over the last ten years. Most prominent at anterior scalp and scalp vertex. Both mom and dad have thinning hair. Tried rogaine for 1 month. Didn't see much of a difference and it dried her scalp. - Also asks about brittle nails. 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 simvastatin (ZOCOR) 20 mg tablet No current facility-administered medications for this visit. Allergy: No Known Allergies Review of Systems: - General: Feels well. - Skin: No other skin concerns. Examination: - Constitutional: Patient was alert, well-appearing and in no noticeable distress. - Skin: Patient was asked to disrobe to the level of their comfort. Examination of skin from the waist up was performed. This includes examination of the skin of the face, ears, neck, chest, axillae,left and right upper extremities, hands, back, and abdomen. Diagnosis/Skin findings/Assessment/Plan: 1.Wart - Right mormonism: warty papule with punctate hemorrhage. Procedure Note: Procedure: Destruction of lesion(s) with cryotherapy. Number: 1 Location: as above Discussed procedure and expectations including risks (including risk of hypopigmentation) and benefits. Verbal consent obtained. Frozen with LN2, 15- 30second thaw time, once. There were no complications; the patient tolerated the procedure well. Post-procedure expectations and wound care were reviewed. 2. Irritated Nevus - Left axilla: 7 mm red/brown papule with even vascular pattern on dermoscopy Procedure: Shave removal technique Location: Left axilla Discussed indications for procedure and expectations including risks and benefits. Verbal consent obtained. Skin prep with alcohol. Local anesthesia with 1% xylocaine, 1/100,000 epinephrine. A sampleof the lesion was removed by shave technique to the level of the dermis and submitted to Pathology.Hemostasis obtained (AlCl and/or electrocautery). There were no complications; the pt. tolerated the procedure well. The wound was dressed. Post-procedure expectations, wound care and activity restrictions were reviewed. Follow-up based on pathology results. Patient will sign up for [facility] for results 3. Androgenetic alopecia - Anterior scalp sparing most anterior aspect and scalp vertex: Diffuse thinning of hair with widening of part. Hair pull test negative. - Discussed hair loss treatments: Biotin, Rogaine, and Spironolactone. - Recommended biotin 1000mcg to 2000mcg daily - Labs today: Iron, Vit D, TIBC, Ferritin,Testosterone free and Total, TSH, CBC, 17-Hydroxyprogesterone, DHEA sulfate, Sex hormone binding globulin. - She also has f/u appt in Dec with car sweeper. She will discuss PCOS and spironolactone. 4. Benign Nevi - Multiple, 0.3-0.5cm, medium-brown, evenly-pigmented macules and papules. All with regular pigment pattern on dermoscopy. No pigmented lesions suspicious for melanoma. 5. Seborrheic keratosis - Right forearm: Warty stuck on papule - Benign, no treatment needed RTC: Per lab results The following photos were obtained with patient consent: Note initiated by ROBERT RUBIO LPN. I am documenting this encounter acting as the scribe for and inthe presence of Sonam Best MD I performed the above scribed service and agree with the accuracy of the documentation in this encounter. Reviewed and signed by: Sonam Best MD Resident in Dermatology [facility] Patient seen in conjunction with staff operations support manager: Patito Woods MD Section of Dermatology [facility] * Patito Woods MD - 10/26/2017 9:20 AM EST I directly supervised Dr. Best in the care of this patient. I saw and evaluated this patient with Dr. Best. She presented the history and physical exam details to me, then we saw the patient together and I confirmed these findings. I agree with details as written. My physical examination confirms Dr. Best's findings. The assessment and plan were formulated in discussion with me at the time of visit and I agree withthem as documented. PATITO WOODS MD FAAD Staff Physician documented in this encounter Plan of Treatment Not on file documented as of this encounter Procedures Procedure Name Priority Date/Time Associated Diagnosis Comments HEMOGRAM Routine 10/26/2017 10:36 AM EST Hair loss DIFFERENTIAL, AUTOMATED Routine 10/26/2017 10:36 AM EST Hair loss SEX HORMONE BINDING GLOBULIN Routine 10/26/2017 10:36 AM EST Hair loss TESTOSTERONE, TOTAL AND FREE Routine 10/26/2017 10:36 AM EST Hair loss IRON AND TIBC Routine 10/26/2017 10:36 AM EST Hair loss 17-HYDROXYPROGESTER ONE Routine 10/26/2017 10:36 AM EST Hair loss VITAMIN D, 25-HYDROXY Routine 10/26/2017 10:36 AM EST Hair loss DHEA-SULFATE Routine 10/26/2017 10:36 AM EST Hair loss CBC (WITH DIFF) Routine 10/26/2017 10:36 AM EST Hair loss TSH Routine 10/26/2017 10:36 AM EST Hair loss FERRITIN Routine 10/26/2017 10:36 AM EST Hair loss SPECIMEN TO PATHOLOGY (NON-OR) Routine 10/26/2017 10:07 AM EST Neoplasm of uncertain behavior of skin SURGICAL PATHOLOGY REPORT Routine 10/26/2017 10:07 AM EST documented in this encounter Results * Differential, Automated (10/26/2017 10:36 AM EST) Neutrophil % 65.7 % [facility] Neutrophil Absolute 4.08 1.70 - 6.10 x10(3)/[facility] Lymph % 23.1 % [facility] Lymphocytes Abs 1.4 0.9 - 3.2 x10(3)/[facility] Monocyte % 8.2 % [facility] Monocyte Abs 0.5 0.3 - 0.9 x10(3)/[facility] Eos % 1.5 % [facility] Eosinophils Abs 0.1 0.0 - 0.4 x10(3)/[facility] Basophil % 1.0 % [facility] Baso Absolute 0.1 0.0 - 0.1 x10(3)/[facility] Immature Gran % 0.50 % [facility] Comment: Immature granulocytes(IG's)percentage and absolute count will include metamyelocytes, myelocytes, and promyelocytes. Blood smears from CBCs yielding IG's will be scanned manually for concordance. If this scan disagrees with the automated IG or if promyelocytes are noted, a manual differential will be performed. Immature Gran Absolute 0.03 0.00 - 0.04 x10(3)/[facility] Blood specimen (specimen) 10/26/2017 10:36 AM EST 10/26/2017 12:52 PM EST Narrative Resulting Agency Comment Spec In Lab Patito Woods MD HEMATOLOGY ORDERABLE S [facility] [place] [address] * (ABNORMAL) Hemogram (10/26/2017 10:36 AM EST) White Blood Cell 6.2 4.0 - 9.5 x10(3)/[facility] Red Blood Cell 4.91 4.00 - 5.21 x10(6)/[facility] Hemoglobin 11.6(L) 11.7 - 15.5 gm/dL [facility] Hematocrit 38.2 35.7 - 45.8 % [facility] Mean Cell Volume 77.8(L) 82.6 - 94.4 [facility] Mean Cell Hemoglobin 23.6(L) 27.1 - 32.0 pg [facility] Mean Cell Hemoglobin Concentration 30.4(L) 31.7 - 35.0 gm/dL [facility] Platelet 405(H) 145 - 357 x10(3)/[facility] RDW Standard Deviation 46.6(H) 37.0 - 46.0 [facility] RDW coefficient of variation 16.4(H) 11.5 - 14.1 % [facility] Mean Platelet Volume 10.8 7.6 - 12.9 [facility] NRBC% auto 0.0 % [facility] NRBC Absolute 0.000 0.000 - 0.000 x10(3)/[facility] Blood specimen (specimen) 10/26/2017 10:36 AM EST 10/26/2017 12:52 PM EST Narrative Resulting Agency Comment Spec In Lab Patito Woods MD HEMATOLOGY ORDERABLE S Performing Organization Address [facility] Co de Phone Number [facility] [place] [address] * (ABNORMAL) Ferritin (10/26/2017 10:36 AM EST) [facility] Ferritin 7(L) 15 - 150 ng/mL [facility] Comment: Pediatric reference ranges not verified at [facility], interpret with caution. Reference ranges for females greater than 50 years of age approach values for men, i.e., 30-400 ng/mL. Blood specimen (specimen) 10/26/2017 10:36 AM EST 10/26/2017 12:57 PM EST Narrative Resulting Agency Comment Spec In Lab Patito Woods MD CHEMISTRY ORDERABLES Performing Organization Address [facility] Co de Phone Number [facility] [place] [address] * (ABNORMAL) Iron and TIBC (10/26/2017 10:36 AM EST) [facility] Iron 60 30 - 150 mcg/dL [facility] TIBC 388 250 - 450 mcg/dL [facility] Iron Saturation 15(L) 20 - 50 % [facility] Blood specimen (specimen) 10/26/2017 10:36 AM EST 10/26/2017 12:54 PM EST Narrative Resulting Agency Comment Spec In Lab Patito Woods MD CHEMISTRY ORDERABLES Performing Organization Address City/[facility]/ZIP Co de Phone Number [facility] [place] [address] * (ABNORMAL) Vitamin D, 25-Hydroxy (10/26/2017 10:36 AM EST) [facility] Vitamin D Total 25 OH 19(L) 30 - 100 ng/mL [facility] Comment: Deficient <10 ng/mL Insufficient 10 to 29 ng/mL Sufficient 30 to 100 ng/mL Potential Intoxication >100 ng/mL According to the US National Osteoporosis Foundation, Vitamin D concentrations >30 ng/mL are sufficient to protect bone health. ??The National Kidney Foundation has similarly stated that patients with Vitamin D concentrations <30ng/mL should be considered to be insufficient or deficient. http://[employer]/nkf-guidelines http://[employer]/nejm-VitD The [employer] i[employer] Vitamin D Immunoassay detects both 25-OH Vitamin D2 and 25-OH Vitamin D3, but only a total Vitamin D concentration is reported. Blood specimen (specimen) 10/26/2017 10:36 AM EST 10/26/2017 3:06 PM EST Narrative Resulting Agency Comment Spec In Lab Patito Woods MD CHEMISTRY ORDERABLES Performing Organization Address City/State/[facility] Co de Phone Number [facility] [place] [address] * 17-Hydroxyprogesterone (10/26/2017 10:36 AM EST) 17-Hydroxyprog (MARCH) <40 ng/dL [facility] Comment: REFERENCE VALUE < 80 (Follicular) <285 (Luteal) < 51 (Postmenopausal) ADDITIONAL INFORMATION This test was developed and its performance characteristics determined by [facility] in a manner consistent with CLIA requirements. This test has not been cleared or approved by the U.S. Food and Drug Administration. Test Performed by: [facility] [address] [place] [address] Blood specimen (specimen) 10/26/2017 10:36 AM EST 10/26/2017 1:27 PM EST Narrative Resulting Agency Comment Spec In Lab Patito Woods MD LAB SEND OUT ORDERAB LES Performing Organization Address City/[facility]/ZIP Co de Phone Number [facility] [place] [address] * DHEA-sulfate (10/26/2017 10:36 AM EST) Dehydroepiandrosterone Sulfate 141.8 35.4 - 256.0 mcg/dL [facility] Blood specimen (specimen) 10/26/2017 10:36 AM EST 10/26/2017 12:56 PM EST Narrative Resulting Agency Comment Spec In Lab Patito Woods MD CHEMISTRY ORDERABLES Performing Organization Address [facility] Co de Phone Number [facility] [place] [address] * Sex Hormone Binding Globulin (10/26/2017 10:36 AM EST) Pathologist [facility] (MARCH) 35 nmol/L [facility] Comment: REFERENCE VALUE 18-144 (non-) Test Performed by: [address] [address] Blood specimen (specimen) 10/26/2017 10:36 AM EST 10/26/2017 2:00 PM EST Narrative Resulting Agency Comment Spec In Lab Patito Woods MD LAB SEND OUT ORDERAB LES Performing Organization Address [facility] Co de Phone Number [facility] [place] [address] * Testosterone, total and free (10/26/2017 10:36 AM EST) Testo Total 25 2 - 45 ng/dL [facility] Comment: For more information on this test, go to http://education.[employer] Physics/faq/ TotalTestosteroneLCMSMS This test was developed and its analytical performance characteristics have been determined by [facility] [place], [place]. It has not been cleared or approved by the U.S. Food and Drug Administration. This assay has been validated pursuant to the CLIA regulations and is used for clinical purposes. Testo Free (MARCH) 2.9 0.1 - 6.4 pg/mL [facility] Comment: This test was developed and its analytical performance characteristics have been determined by [employer] [place], [place]. It has not been cleared or approved by the U.S. Food and Drug Administration. This assay has been validated pursuant to the CLIA regulations and is used for clinical purposes. Test Performed by [facility], [employer] [facility], [address] [place] [address] Kevan Fofana M.D., Ph.D., Director of Laboratories , CLIA [id number] Blood specimen (specimen) 10/26/2017 10:36 AM EST 10/26/2017 2:04 PM EST Narrative Resulting Agency Comment Spec In Lab Patito Woods MD LAB SEND OUT ORDERAB LES Performing Organization Address [facility]/ZIP Co de Phone Number [facility] [place] [address] * TSH (10/26/2017 10:36 AM EST) Thyroid Stimulating Hormone 1.10 0.27 - 4.20 mlU/ML [facility] Blood specimen (specimen) 10/26/2017 10:36 AM EST 10/26/2017 12:54 PM EST Narrative Resulting Agency Comment Spec In Lab Patito Woods MD CHEMISTRY ORDERABLES Performing Organization Address [facility] Co de Phone Number [facility] [place] [address] * Surgical Pathology Report (10/26/2017 10:07 AM EST) Final Diagnosis [id number] ? Location: [facility] The signing pathologist has (i) examined the relevant preparation(s) for the specimen(s) and (ii) rendered or confirmed the diagnosis(es). . ?Surgical Pathology DIAGNOSIS Skin, left axilla, shave removal: Seborrheic keratosis, inflamed and pigmented. Electronically signed by: ??Glen STALEY, PhD, Valentina Verified: ??10/27/2017 ?Dermatopathol ogist Performed at: ??-[facility] Dept. of Pathology, [place], [place] CLINICAL INFORMATION Specimen Submitted: A - Skin, left axilla, shave removal (1) Clinical History: 7 mm red-brown papule with even vascular pattern on dermoscopy Clinical Diagnosis: Irritated nevus SPECIMEN PROCESSING A - Labeled/Fixativ e: Patient demographics, formalin. Quantity/Size: Single, 0.9 x 0.7 x 0.2 cm. Tissue Description: Victoria-garrido papule. Sections/Proces sing: Inked and quadrisectioned . (T1) ??pps 10/27/2017 2:01 PM EST [facility] SPECIMEN FROM SKIN / Unknown 10/26/2017 10:07 AM EST 10/26/2017 10:07 AM EST Sonam Best MD PATHOLOGY/CYTOLOGY ORDERABLES Performing Organization Address [facility]/State/[facility] Co de Phone Number [facility] [place] [address] * Specimen to Pathology (NON-OR) (10/26/2017 10:07 AM EST) AP Specimen 10/26/2017 10:0 7 AM EST 10/26/2017 12:53 PM EST Narrative [facility] - 10/26/2017 12:53 PM EST Specimen requisition ordered. ??Separate Pathology report to follow Resulting Agency Comment Spec In Lab Patito Woods MD PATHOLOGY/CYTOLOGY O RDERABLES [facility] [place] [address] documented in this encounter Visit Diagnoses Diagnosis Neoplasm of uncertain behavior of skin Viral warts, unspecified type Multiple benign nevi Benign neoplasm of skin, site unspecified Hair loss Alopecia, unspecified Seborrheic keratosis Other seborrheic keratosis documented in this encounter Care Teams Time Lock Expert Relationship Specialty Start Date End Date Erna Garcia MD [address] [place] [address] PCP - General Family Medicine 09/18/17 06/01/19 documented as of this encounter
--- OUTSIDE RECORDS SUMMARY | 2024-06-30 21:29 | XMS_ITS | Clinical Summary ---
Author Organization [facility] Address [address] [place] [address] Care Team Providers Care Prehemmer Name Role Phone Carrie Herrera Primary Care Provider [phone] Social History Tobacco Use Types Packs/Day Years Used Date Smoking Tobacco: Never Assessed Interpersonal Safety Answer Date Record ed Physically Hurt Never 06/24/2020 Verbally Threaten Not on file 06/24/2020 Sex and Gender Information Value Date Recorded Sex Assigned at Not on file Gender Identity Not on file Sexual Orientation Not on file Plan of Treatment Health Maintenance Due Date Last Done Comments Hepatitis C Screen 1970 Hepatitis B Vaccine (1 of 3 - 19+ 3-dose series) 05/15 COVID-19 Vaccine ( season) 2023 Care Teams Prehemmer Relationship Specialty Start Date End Date Carrie Herrera FNP [address] [place], [place] [address] PCP - General 02/17/12
--- OUTSIDE RECORDS SUMMARY | 2024-06-30 21:29 | XMS_ITS | Encounter Summary ---
Author Organization [facility] Address [address] [place] [address] Care Team Providers Care Chemistry Account Manager Name Role Phone Carrie Herrera BOBBIN PRESSER Primary Care Provider [phone] Encounter Details Date Type Department Care Team (Late st Contact Info) Description 05/31/2019 Results Only [facility] [phone] Shanna Gonzalez, SUPERIOR COURT JUDGE [address] [facility] [address] [place] [phone] Social History Tobacco Use Types Packs/Day Years [...] Diagnosis Comments PAP TEST- RESULT ONLY Routine 05/31/2019 0:00 EDT documented in this encounter Results * PAP TEST- RESULT ONLY (05/31/2019 0:00 EDT) Pathology Report: CYTOPATHOLOGY REPORT Reports generated via electronic interface contain original data; however they are lacking the format of the original report. Caution should be taken when reading/interpreti ng unformatted reports. Name: ? ODALIS CARROLL ? Accession #: ? [id number] ? : ? 1970 (Age: 49) ??F ?Collect Date: ? 05/31/2019 ? Location: ? [facility] ? Receive Date: ? 06/01/2019 ? Provider: SHANNA GONZALEZ SUPERIOR COURT JUDGE Copy to: ? Final Report SPECIMEN ADEQUACY ? Satisfactory for Evaluation - transformation zone component present GENERAL CATEGORIZATION ? Negative for Intraepithelial Lesion or Malignancy ?? Last Menstrual Period: 05/17/19 Hormonal/Contracep tive status: Condoms Other: Additional clinical information: Z00.00 Z12.4 Z01.419 Specimen/Source: ??Pap Test, Cervix/Endocervix, ThinPrep Imaging System with manual evaluation Document reviewed and electronically signed by: ? Francisco Her, CT(ASCP) ? Report ??Date: 06/02/2019 10:48 HPV with Pap Test ? Date Ordered: ? 06/02/2019 ? Status: ?? Signed Out ?Date Complete: ? 06/03/2019 ? By: ??System Interface ? Date Reported: ? 06/03/2019 ? Interpretation RESULT: Negative for HPV. No E6 or E7 mRNA is detected from HPV types 16,18,31,33,35, 39,45,51,52,56,58, 59,66, and 68 by lidar scientist mediated amplification. Comments Document reviewed and electronically signed by: ? System Interface ? Report date: 06/03/2019 By the signature above, the attending physician certifies that he/she has personally conducted a gross and/or microscopic examination of the described specimens and rendered or confirmed the above diagnosis. End of Report [facility] 05/31/2019 06/01/[address] JUDGE PATHOLOGY ORDERAB LES [facility] [address] [place] [address] documented in this encounter Visit Diagnoses Not on filedocumented in this encounter Care Teams Chemistry Account Manager Relationship Specialty Start Date End Date Carrie Herrera FNP [address] [place] [address] PCP - General 02/17/12 documented as of this encounter
--- OUTSIDE RECORDS SUMMARY | 2024-06-30 21:29 | XMS_ITS | Encounter Summary ---
Author Organization [facility] [place] [address] Care Team Providers Care Concrete Floater Name Role Phone Erna Garcia MD Primary Care Provider [phone] Encounter Details Date Type Department Care Team (Late st Contact Info) Description 05/26/2019 Orders Only Dermatology at [facility] [address] [place] [address] Brian Woods MD [address] [facility] [facility] [place] [address] Acne, unspecified acne type Social History Tobacco Use Types Packs/Day Years Used Date Smoking Tobacco: Never Smokeless Tobacco: Never Sex and Gender Information Value Date Recorded Sex Assigned at Not on file Gender Identity Not on file Sexual Orientation Not on file documented as of this encounter Plan of Treatment Not on file documented as of this encounter Visit Diagnoses Diagnosis Acne, unspecified acne type documented in this encounter Care Teams Concrete Floater Relationship Specialty Start Date End Date Erna Garcia MD [address] [place] [address] PCP - General Family Medicine 09/18/17 06/01/19 documented as of this encounter
[2024-06-30 21:43] LABS: Abs Immature Grans 0.03 10^3/uL (0.0-0.06); Absolute Basophil Count 0.05 10^3/uL (0.0-0.2); Absolute Eosinophil Count 0.15 10^3/uL (0.0-0.7); Absolute Lymphocyte Count 1.51 10^3/uL (1.2-3.4); Absolute Monocyte Count 0.51 10^3/uL (0.1-0.8); Absolute Neutrophil Count 4.71 10^3/uL (1.2-6.7); Basophils % 0.7 %; Eosinophils % 2.2 %; HCT 40.2 % (36.0-46.0); HGB 12.4 g/dL (11.2-15.7); Immature Grans % 0.4 %; Lymphocytes % 21.7 %; MCH 25.4 pg (27.0-33.0); MCHC 30.8 % (32.0-36.0); MCV 82 fL (80-95); MPV 10.7 fL (8.0-11.0); Monocytes % 7.3 %; Neutrophils % 67.7 %; Platelet Count 330 10^3/uL (130-400); RBC 4.89 10^6/uL (3.93-5.22); RDW 15.3 % (11.7-14.6); RDW-SD 45.8 fL; WBC 6.96 10^3/uL (4.4-10.8)
[2024-06-30 22:17] LABS: Calculated LDL 191 mg/dL (<100); Cholesterol 268 mg/dL (<200); Ferritin 9 ng/mL (8-252); HDL Cholesterol 59 mg/dL (40-60); Triglyceride 93 mg/dL (<150)
[2024-06-30 22:30] LABS: Iron 29 ug/dL (50-170); Total Iron Binding Capacity 455 ug/dL (250-450); Transferrin Sat 6 % (15-50)
[2024-06-30 22:32] LABS: Hemoglobin A1C 5.7 % (<5.7)
== END 2024-06-30 21:23 | disposition home or self-care (01) ==
LOC: NCHCN 21:22
PROVIDERS: PCP Nurse Practitioner Family; Visit Provider Nurse Practitioner Family
DX: Z12.4 Encounter for screening for malignant neoplasm of cervix (principal); E61.1 Iron deficiency; Z13.1 Encounter for screening for diabetes mellitus; Z13.6 Encounter for screening for cardiovascular disorders
CPT/HCPCS: 80061; 88142; 82728; 83036; 83540; 83550; 85025; 87624

== ENCOUNTER 2024-09-09 02:05 | Outpatient (CLI) | payer MEDICAID, SELFPAY ==
--- OUTSIDE RECORDS SUMMARY | 2024-09-09 02:17 | XMS_ITS | Encounter Summary ---
Author Organization [facility] [place] [address] Care Team Providers Care Chief Controller Station Name Role Phone Octavia Warner APRN Primary Care Provider [phone] Encounter Details Date Type Department Care Team (Late st Contact Info) Description 04/26/2004 [place] [id number] Nabil Arizmendi [place] [address] Social History Tobacco Use Types Packs/Day Years [...] 10:35 AM EDT) Surgical Pathology Report [id number] ? Location: The signing pathologist has (i) [...] MD PATHOLOGY/CYTOLOGY O RDERABLES Performing Organization Address City/State/[facility] Co de Phone Number TRISH THAKKAR documented in this encounter Visit Diagnoses Not on filedocumented in this encounter Care Teams Chief Controller Station Relationship Specialty Start Date End Date Octavia Warner APRN [address] [place] [address] PCP - General Family Medicine 06/02/19 documented as of this encounter
--- OUTSIDE RECORDS SUMMARY | 2024-09-09 02:17 | XMS_ITS | Encounter Summary ---
Author Organization [facility] Address [facility] [place] [address] Care Team Providers Care Furnace Operator Oil Or Gas Name Role Phone Erna Garcia MD Primary Care Provider [phone] Reason for Visit * Reason Comments Skin Check Skin Lesion * Consultation (Routine) - Closed Specialty Diagnoses / Procedures Referred By Julián acuna Referred To Contact Dermatology Diagnoses removal of skin lesion - right confucianism, right forearm, left axilla Octavia Warner APRN [address] [place] [address] [facility] Dermatology [address] [place] [address] Referral ID Status Reason Start Date Expiration Date V isits Requested Visits Authorized [id number] Closed Consult, Test & Treat Connection Center 09/18/2017 09/18/2018 1 1 Encounter Details Date Type Department Care Team (Late st Contact Info) Description 10/26/2017 9:20 AM EST Office Visit Dermatology at [facility] [address] [place] [address] Sonam Best MD [facility] [address] [place] [address] Neoplasm of uncertain behavior of skin; Viral [...] andforearms. 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 Diagnosis/Skin findings/Assessment/Plan: 1.Wart - Right confucianism: warty papule with punctate hemorrhage. Procedure Note: [...] pathology results. Patient will [facility] 3. Androgenetic alopecia - [...] also has f/u appt in Dec with toy designer. She will discuss PCOS and spironolactone. 4. [...] by: Sonam Best MD Resident in Dermatology [facility] Patient seen in conjunction with staff sleep medicine physician: Patito Woods MD Section of Dermatology [facility] * Patito Woods MD - 10/26/2017 9:20 [...] and I agree withthem as documented. PATITO WOOSD MD FAAD Staff Physician documented in this [...] 10:36 AM EST) Neutrophil % 65.7 % [facility] Neutrophil Absolute 4.08 1.70 - 6.10 x10(3)/[facility] Lymph % 23.1 % [facility] Lymphocytes Abs 1.4 0.9 - 3.2 x10(3)/[facility] LAB[facility] Monocyte % 8.2 % [facility] Monocyte Abs 0.5 0.3 - 0.9 x10(3)/[facility] LAB[facility] Eos % 1.5 % [facility] Eosinophils Abs 0.1 0.0 - 0.4 x10(3)/[facility] Basophil % 1.0 % [facility] Baso Absolute 0.1 0.0 - 0.1 x10(3)/[facility] LABOR[facility] Immature Gran % 0.50 % [facility] Comment: Immature granulocytes(IG's)percentage and absolute count will include metamyelocytes, myelocytes, and promyelocytes. Blood smears from CBCs yielding IG's will be scanned manually for concordance. If this scan disagrees with the automated IG or if promyelocytes are noted, a manual differential will be performed. Immature Gran Absolute 0.03 0.00 - 0.04 x10(3)/[facility] Blood specimen (specimen) 10/26/2017 10:36 AM EST 10/26/2017 12:52 PM EST Narrative Resulting Agency Comment Spec In Lab Patito Woods MD HEMATOLOGY ORDERABLE S [facility] [place] [address] * (ABNORMAL) Hemogram (10/26/2017 10:36 AM EST) White Blood Cell 6.2 4.0 - 9.5 x10(3)/[facility] LABORATORY Red Blood Cell 4.91 4.00 - 5.21 x10(6)/[facility] LAB[facility] Hemoglobin 11.6(L) 11.7 - 15.5 gm/dL [facility] Hematocrit 38.2 35.7 - 45.8 % [facility] Mean Cell Volume 77.8(L) 82.6 - 94.4 [facility] Mean Cell Hemoglobin 23.6(L) 27.1 - 32.0 pg [facility] Mean Cell Hemoglobin Concentration 30.4(L) 31.7 - 35.0 gm/dL [facility] Platelet 405(H) 145 - 357 x10(3)/[facility] LABORAT[facility] RDW Standard Deviation 46.6(H) 37.0 - 46.0 [facility] RDW coefficient of variation 16.4(H) 11.5 - 14.1 % [facility] Mean Platelet Volume 10.8 7.6 - 12.9 [facility] NRBC% auto 0.0 % [facility] NRBC Absolute 0.000 0.000 - 0.000 x10(3)/[facility] Blood specimen (specimen) 10/26/2017 10:36 AM EST 10/26/2017 12:52 PM EST Narrative Resulting Agency Comment Spec In Lab Patito Woods MD HEMATOLOGY ORDERABLE S Performing Organization Address [facility] Co de Phone Number [facility] [place] [address] * (ABNORMAL) Ferritin (10/26/2017 10:36 AM EST) [facility] Ferritin 7(L) 15 - 150 ng/mL [facility] Comment: Pediatric reference ranges not verified at [facility] interpret with caution. Reference ranges for females greater than 50 years of age approach values for men, i.e., 30-400 ng/mL. Blood specimen (specimen) 10/26/2017 10:36 AM EST 10/26/2017 12:57 PM EST Narrative Resulting Agency Comment Spec In Lab Patito Woods MD CHEMISTRY ORDERABLES Performing Organization Address [facility] Co de Phone Number [facility] [place] [address] * (ABNORMAL) Iron and TIBC (10/26/2017 10:36 AM EST) [facility] Iron 60 30 - 150 mcg/dL [facility] TIBC 388 250 - 450 mcg/dL [facility] Iron Saturation 15(L) 20 - 50 % [facility] Blood specimen (specimen) 10/26/2017 10:36 AM EST 10/26/2017 12:54 PM EST Narrative Resulting Agency Comment Spec In Lab Patito Woods MD CHEMISTRY ORDERABLES Performing Organization Address City/[facility]/ZIP Co de Phone Number [facility] [place] [address] * (ABNORMAL) Vitamin D, 25-Hydroxy (10/26/2017 10:36 AM EST) [facility] Vitamin D Total 25 OH 19(L) 30 - 100 ng/mL [facility] Comment: Deficient <10 ng/mL Insufficient 10 to 29 ng/mL Sufficient 30 to 100 ng/mL Potential Intoxication >100 ng/mL According to the US National Osteoporosis Foundation, Vitamin D concentrations >30 ng/mL are sufficient to protect bone health. ??The National Kidney Foundation has similarly stated that patients with Vitamin D concentrations <30ng/mL should be considered to be insufficient or deficient. http://[employer]nkf-guidelines http://[employer]nejm-VitD The [employer] Vitamin D Immunoassay detects both 25-OH Vitamin D2 and 25-OH Vitamin D3, but only a total Vitamin D concentration is reported. Blood specimen (specimen) 10/26/2017 10:36 AM EST 10/26/2017 3:06 PM EST Narrative Resulting Agency Comment Spec In Lab Patito Woods MD CHEMISTRY ORDERABLES Performing Organization Address City/State/[facility] Co de Phone Number [facility] [place] [address] * 17-Hydroxyprogesterone (10/26/2017 10:36 AM EST) 17-Hydroxyprog (MARCH) <40 ng/dL [facility] Comment: REFERENCE VALUE < 80 (Follicular) <285 (Luteal) < 51 (Postmenopausal) ADDITIONAL INFORMATION This test was developed and its performance characteristics determined by [facility] in a manner consistent with CLIA requirements. This test has not been cleared or approved by the U.S. Food and Drug Administration. Test Performed by: [facility] - [facility] [address] [place] [address] Blood specimen (specimen) 10/26/2017 10:36 AM EST 10/26/2017 1:27 PM EST Narrative Resulting Agency Comment Spec In Lab Patito Woods MD LAB SEND OUT ORDERAB LES Performing Organization Address City/[facility]/ZIP Co de Phone Number [facility] [place] [address] * DHEA-sulfate (10/26/2017 10:36 AM EST) Dehydroepiandrosterone Sulfate 141.8 35.4 - 256.0 mcg/dL [facility] Blood specimen (specimen) 10/26/2017 10:36 AM EST 10/26/2017 12:56 PM EST Narrative Resulting Agency Comment Spec In Lab Patito Woods MD CHEMISTRY ORDERABLES Performing Organization Address [facility] Co de Phone Number [facility] [place] [address] * Sex Hormone Binding Globulin (10/26/2017 10:36 AM EST) Pathologist [facility] (MARCH) 35 nmol/L [facility] Comment: REFERENCE VALUE 18-144 (non-) Test Performed by: [address] [address] Blood specimen (specimen) 10/26/2017 10:36 AM EST 10/26/2017 2:00 PM EST Narrative Resulting Agency Comment Spec In Lab Patito Woods MD LAB SEND OUT ORDERAB LES Performing Organization Address [facility] Co de Phone Number [facility] [place] [address] * Testosterone, total and free (10/26/2017 10:36 AM EST) Testo Total 25 2 - 45 ng/dL [facility] Comment: For more information on this test, go to http://education.[employer]Save[employer].com.100Plus/faq/ TotalTestosteroneLCMSMS This test was developed and its analytical performance characteristics have been determined by [facility] [place], [place]. It has not been cleared or approved by the U.S. Food and Drug Administration. This assay has been validated pursuant to the CLIA regulations and is used for clinical purposes. Testo Free (MARCH) 2.9 0.1 - 6.4 pg/mL [facility] Comment: This test was developed and its analytical performance characteristics have been determined by [facility] [place], [place]. It has not been cleared or approved by the U.S. Food and Drug Administration. This assay has been validated pursuant to the CLIA regulations and is used for clinical purposes. Test Performed by [facility], [facility], [address] [place] [address] Kevan Fofana M.D., Ph.D., Director of Laboratories , CLIA [id number] Blood specimen (specimen) 10/26/2017 10:36 AM EST 10/26/2017 2:04 PM EST Narrative Resulting Agency Comment Spec In Lab Patito Woods MD LAB SEND OUT ORDERAB LES Performing Organization Address [facility]/ZIP Co de Phone Number [facility] [place] [address] * TSH (10/26/2017 10:36 AM EST) Thyroid Stimulating Hormone 1.10 0.27 - 4.20 mlU/ML [facility] Blood specimen (specimen) 10/26/2017 10:36 AM EST 10/26/2017 12:54 PM EST Narrative Resulting Agency Comment Spec In Lab Patito Woods MD CHEMISTRY ORDERABLES Performing Organization Address [facility] Co de Phone Number [facility] [place] [address] * Surgical Pathology Report (10/26/2017 10:07 AM EST) Final Diagnosis [id number] ? Location: [facility] The signing pathologist has (i) examined the relevant preparation(s) for the specimen(s) and (ii) rendered or confirmed the diagnosis(es). . ?Surgical Pathology DIAGNOSIS Skin, left axilla, shave removal: Seborrheic keratosis, inflamed and pigmented. Electronically signed by: ??Glen STALEY, PhD, Valentina Verified: ??10/27/2017 ?Dermatopathol ogist Performed at: ??-[facility] [place]. [place], [place], [place] CLINICAL INFORMATION Specimen Submitted: A - Skin, left axilla, shave removal (1) Clinical History: 7 mm red-brown papule with even vascular pattern on dermoscopy Clinical Diagnosis: Irritated nevus SPECIMEN PROCESSING A - Labeled/Fixativ e: Patient demographics, formalin. Quantity/Size: Single, 0.9 x 0.7 x 0.2 cm. Tissue Description: Victoria-garrido papule. Sections/Proces sing: Inked and quadrisectioned . (T1) ??pps 10/27/2017 2:01 PM EST [facility] SPECIMEN FROM SKIN / Unknown 10/26/2017 10:07 AM EST 10/26/2017 10:07 AM EST Sonam Best MD PATHOLOGY/CYTOLOGY ORDERABLES Performing Organization Address [facility]/State/[facility] Co de Phone Number [facility] [place] [address] * Specimen to Pathology (NON-OR) (10/26/2017 10:07 AM EST) AP Specimen 10/26/2017 10:0 7 AM EST 10/26/2017 12:53 PM EST Narrative [facility] - 10/26/2017 12:53 PM EST Specimen requisition ordered. ??Separate Pathology report to follow Resulting Agency Comment Spec In Lab Patito Woods MD PATHOLOGY/CYTOLOGY O RDERABLES [facility] [place] [address] documented in this encounter Visit Diagnoses Diagnosis Neoplasm of uncertain behavior of skin Viral warts, unspecified type Multiple benign nevi Benign neoplasm of skin, site unspecified Hair loss Alopecia, unspecified Seborrheic keratosis Other seborrheic keratosis documented in this encounter Care Teams Furnace Operator Oil Or Gas Relationship Specialty Start Date End Date Erna Garcia MD [address] [place] [address] PCP - General Family Medicine 09/18/17 06/01/19 documented as of this encounter
--- OUTSIDE RECORDS SUMMARY | 2024-09-09 02:17 | XMS_ITS | Encounter Summary ---
Author Organization [facility] Address [address] [place] [address] Care Team Providers Care Continuous Improvement Intern Name Role Phone Unavailable Primary Care Provider Unavailabl e Encounter Details Date Type Department Care Team (Late st Contact Info) Description 02/26/2011 Results Only [facility] Laboratory Services - [facility] ([facility]) [address] [place], [place] [id number] Rosy Herrera FNP [address] [place], [place] [id number] Social History Tobacco Use Types Packs/Day Years [...] ? ODALIS CARROLL ? Accession #: ? [id number] ? : ? 1970 (Age: 40) ??F [...] ? OTILIA WEST 02/26/2011 02/28/2011 Rosy Herrera SALES SPECIAL AGENT PATHOLOGY ORDERABLES [facility]IA [facility] [address] [place] [address] documented in this encounter Visit Diagnoses Not on filedocumented in this encounter
--- OUTSIDE RECORDS SUMMARY | 2024-09-09 02:17 | XMS_ITS | Encounter Summary ---
Author Organization [facility] Address [address] [place] [address] Care Team Providers Care Breakdown Mill Operator Name Role Phone Unavailable Primary Care Provider Unavailabl e Encounter Details Date Type Department Care Team (Late st Contact Info) Description 03/24/2007 Results Only [facility] [address] [place] [address] Rosy Herrera FNP [address] [place], [place] [id number] Social History Tobacco Use Types Packs/Day Years [...] ? ODALIS CARROLL ? Accession #: ? [id number] : ? 1970 (Age: 36) ??F ?Collect Date: ? 03/24/2007 Location: ? [facility] ? Receive Date: ? 03/25/2007 Provider: ?ROSY HERRERA MEDICAL RECRUITER Copy to: ? Specimen/Source: ?ThinPrep Pap Test, Cervix/Endocervix, processed on [employer] ThinPrep Imaging System, with manual evaluation Last [...] Report OTILIA WEST 03/24/2007 03/25/2007 Rosy Herrera MEDICAL RECRUITER PATHOLOGY ORDERABLES OTILIA [facility] [address] [place] [address] documented in this encounter Visit Diagnoses Not on filedocumented in this encounter
--- OUTSIDE RECORDS SUMMARY | 2024-09-09 02:17 | XMS_ITS | Encounter Summary ---
Author Organization [facility] [place] [address] Care Team Providers Care Food Storeroom Clerk Name Role Phone Octavia Warner APRN Primary Care Provider [phone] Reason for Referral * Consultation (Routine) - Closed Specialty Diagnoses / Procedures Referred By Contac t Referred To Contact Sleep Center Diagnoses Snoring Fatigue, unspecified type Restless leg Procedures PRG POLYSOM 6+ YRS SLEEP W 4+ ADDL ANN Ortiz Richardson MD [facility] [place] [address] [facility] Sleep Medicine [address] [place] [address] Referral ID Status Reason Start Date Expiration Date V isits Requested Visits Authorized [id number] Closed Test Only 08/11/2019 08/10/2020 1 1 Reason for Visit * Consultation (Routine) - Closed Specialty Diagnoses / Procedures Referred By Contac t Referred To Contact Sleep Center Diagnoses INSOMNIA Octavia Warner APRN [address] [place] [address] [facility] Sleep Medicine [address] [place] [address] Referral ID Status Reason Start Date Expiration Date V isits Requested Visits Authorized [id number] Closed Consult, Test & Treat Connection Center 06/02/2019 06/01/2020 1 1 Encounter Details Date Type Department Care Team (Late st Contact Info) Description 08/11/2019 10:15 AM EDT Office Visit [facility] [address] [place] [address] Ortiz Barragan MD [facility] [address] [place] [address] Snoring; Fatigue, unspecified type; Restless leg; Insomnia, [...] to feeling tired. Patient was seen by eligibility specialist once who had recommend good sleep hygiene [...] mostly in lateral position Questionnaires: Patient-reported scores: [place] score is 5 Daytime Symptoms: Upon Awakening: [...] she becomes sleepy while driving she will pull worker and nap. The patient indicates understanding of [...] type documented in this encounter Care Teams Food Storeroom Clerk Relationship Specialty Start Date End Date Octavia Warner APRN [address] [place] [address] PCP - General Family Medicine 06/02/19 documented as of this encounter
--- OUTSIDE RECORDS SUMMARY | 2024-09-09 02:17 | XMS_ITS | Encounter Summary ---
Author Organization [facility] Address [address] [place] [address] Care Team Providers Care Chief I Dispatcher Name Role Phone Javier Rosy MORALES Primary Care Provider [phone] Encounter Details Date Type Department Care Team (Late st Contact Info) Description 11/27/2014 Results Only [facility] Laboratory Services - [facility] ([facility]) [address] [place], [place] [address] Rosy Herrera FNP [address] [place] [address] Social History Tobacco Use Types [...] Receive Date: ? 11/29/2014 Provider: ?ROSY HERRERA CARE AIDE Copy to: ? Specimen/Source: ?Pap Test, Cervix/Endocervix, [...] Report Date: ??11/30/2014 14:03 End of Report [facility] 11/27/2014 11/29/2014 Rosy MORALES PATHOLOGY ORDERABLES [facility] [address] [place] [address] documented in this encounter Visit Diagnoses Not on filedocumented in this encounter Care Teams Chief I Dispatcher Relationship Specialty Start Date End Date Rosy Herrera FNP [address] [place] [address] PCP - General 02/17/12 documented as of this encounter
--- OUTSIDE RECORDS SUMMARY | 2024-09-09 02:17 | XMS_ITS | Encounter Summary ---
Author Organization [facility] Address [facility] [place] [address] Care Team Providers Care Multiskill Operator Name Role Phone Erna Garcia MD Primary Care Provider [phone] Reason for Visit * Reason Onset Date Comments Prior Authorization 05/30/2019 Encounter Details Date Type Department Care Team (Late st Contact Info) Description 05/30/2019 Telephone Dermatology at [facility] [address] [place] [address] Clarence Schmid MD [facility] [address] [place] [address] Prior Authorization Social History Tobacco Use Types [...] on filedocumented in this encounter Care Teams Multiskill Operator Relationship Specialty Start Date End Date Erna Garcia MD [address] [place] [address] PCP - General Family Medicine 09/18/17 06/01/19 documented as of this encounter
--- OUTSIDE RECORDS SUMMARY | 2024-09-09 02:17 | XMS_ITS | Encounter Summary ---
Author Organization [facility] [place] [address] Care Team Providers Care Cisco Unified Communications Engineer Name Role Phone Octavia Warner APRN Primary Care Provider [phone] Reason for Visit * Consultation (Routine) - Closed Specialty Diagnoses / Procedures Referred By Julián acuna Referred To Contact General Surgery Diagnoses OBESITY Octavia Warner APRN [address] [place] [address] [facility] [address] [place] [address] Referral ID Status Reason Start Date Expiration Date V isits Requested Visits Authorized [id number] Closed Consult, Test & Treat Connection Center 06/02/2019 06/01/2020 1 1 Encounter Details Date Type Department Care Team (Late st Contact Info) Description 06/06/2019 5:30 PM EDT [place] [address] Social History Tobacco Use Types Packs/Day Years [...] on filedocumented in this encounter Care Teams Cisco Unified Communications Engineer Relationship Specialty Start Date End Date Octavia Warner APRN [address] [place] [address] PCP - General Family Medicine 06/02/19 documented as of this encounter
--- OUTSIDE RECORDS SUMMARY | 2024-09-09 02:17 | XMS_ITS | Encounter Summary ---
Author Organization [facility] [address] Care Team Providers Care Line Assembly Utility Worker Name Role Phone Erna Garcia MD Primary Care Provider Encounter Details Date Type Department Care Team (Late st Contact Info) Description 05/26/2019 Orders Only Dermatology at [facility] [address] [place] [address] Brian Woods MD [address] [facility] [place] [address] Acne, unspecified acne type Social History Tobacco [...] type documented in this encounter Care Teams Line Assembly Utility Worker Relationship Specialty Start Date End Date Erna Garcia MD [address] [place] [address] PCP - General Family Medicine 09/18/17 06/01/19 documented as of this encounter
--- OUTSIDE RECORDS SUMMARY | 2024-09-09 02:17 | XMS_ITS | Encounter Summary ---
Author Organization [place] [address] Care Team Providers Care Track Surfacing Machine Operator Name Role Phone Erna Garcia MD Primary Care Provider [phone] Reason for Visit * Reason Comments Dermatitis Encounter Details Date Type Department Care Team (Late st Contact Info) Description 05/23/2019 1:30 PM EDT Office Visit Dermatology at [facility] [address] [place] [address] Clarence Schmid MD [facility] [address] T[place] [address] Acne, unspecified acne type; Androgenetic alopecia; High [...] PATIENT FOLLOW-UP Date of service: 05/23/2019 Odalisignacio Garzon : 1970, 49 y.o. Chief Complaint: Chief [...] no ?? Social History: - lives on [facility] - [employer] - 2 children - [...] profile, bHCG) Weight: 90 kg iPledge ID: [id number] RTC: 4 weeks for accutane start, sooner [...] by: Clarence Schmid MD Resident in Dermatology [facility] Patient seen and evaluated with staff president finance company: Patito Woods MD Section of Dermatology [facility] * Patito Woods MD - [...] 2:21 PM EDT) Neutrophil % 66.1 % [facility] Neutrophil Absolute 5.10 1.70 - 6.10 x10(3)/[facility] Lymph % 22.3 % [facility] Lymphocytes Abs 1.7 0.9 - 3.2 x10(3)/[facility] Monocyte % 9.5 % [facility] Monocyte Abs 0.7 0.3 - 0.9 x10(3)/[facility] Eos % 1.0 % [facility] Eosinophils Abs 0.1 0.0 - 0.4 x10(3)/[facility] Basophil % 0.6 % [facility] Baso Absolute 0.0 0.0 - 0.1 x10(3)/[facility] Immature Gran % 0.50 % [facility] Comment: Immature granulocytes(IG's)percentage and absolute count will include metamyelocytes, myelocytes, and promyelocytes. Blood smears from CBCs yielding IG's will be scanned manually for concordance. If this scan disagrees with the automated IG or if promyelocytes are noted, a manual differential will be performed. Immature Gran Absolute 0.04 0.00 - 0.04 x10(3)/[facility] Blood specimen (specimen) 05/23/2019 2:21 PM EDT 05/23/2019 4:29 PM EDT Narrative Resulting Agency Comment Spec In Lab Clarence Schmid MD HEMATOLOGY ORDERABLE S [facility] [place] [address] * Hemogram (05/23/2019 2:21 PM EDT) White Blood Cell 7.7 4.0 - 9.5 x10(3)/[facility] Red Blood Cell 4.92 4.00 - 5.21 x10(6)/[facility] Hemoglobin 14.3 11.7 - 15.5 gm/dL [facility] Hematocrit 45.0 35.7 - 45.8 % [facility] Mean Cell Volume 91.5 82.6 - 94.4 fL [facility] Mean Cell Hemoglobin 29.1 27.1 - 32.0 pg [facility] Mean Cell Hemoglobin Concentration 31.8 31.7 - 35.0 gm/dL [facility] Platelet 329 145 - 357 x10(3)/[facility] RDW Standard Deviation 45.8 37.0 - 46.0 [facility] RDW coefficient of variation 13.5 11.5 - 14.1 % [facility] Mean Platelet Volume 10.7 7.6 - 12.9 fL [facility] NRBC% auto 0.0 % [facility] NRBC Absolute 0.000 0.000 - 0.000 x10(3)/[facility] Blood specimen (specimen) 05/23/2019 2:21 PM EDT 05/23/2019 4:29 PM EDT Narrative Resulting Agency Comment Spec In Lab Clarence Schmid MD HEMATOLOGY ORDERABLE S [facility] [place] [address] * Beta HCG, quantitative (05/23/2019 2:21 PM EDT) Beta Human Chorionic Gonadotropin, Quantitative <1 mlU/ML [facility] Comment: REFERENCE RANGES NON- [...] - 56,451 ?17 weeks ? 8,175 - 31,868 ?18 weeks ? 8,099 - 36,176 Blood specimen (specimen) 05/23/2019 2:21 PM EDT 05/23/2019 4:33 PM EDT Narrative Resulting Agency Comment Spec In Lab Patito Woods MD CHEMISTRY ORDERABLES [facility] [place] [address] * Lipid Panel (05/23/2019 2:21 PM EDT) Cholesterol, Total 272 mg/dL [facility] Comment: Lower Risk: <200 mg/dL Average Risk: 200-239 mg/dL Higher Risk: >cb=522 mg/dL Triglyceride 353 mg/dL [facility] Comment: Average Risk/Lower Risk: <150 mg/dL Borderline High Risk: 150-199 mg/dL High Risk: 200-499 mg/dL Very High Risk: >at=960 mg/dL HDL Cholesterol 44 mg/dL [facility] Comment: Males: ?? Higher Risk: <40 mg/dL Females: ?? HIgher Risk: <50 mg/dL LDL Cholesterol 157 mg/dL [facility] Comment: Lowest Risk: <100 mg/dL Lower Risk: 100-129 mg/dL Borderline High Risk: 130-159 mg/dL High Risk: 160-189 mg/dL Very High Risk: >cw=484 mg/dL Cholesterol/HDL Ratio 6.2 ratio [facility] Lipid Interpretation See Note [facility] Comment: Lipid management should be guided by a patient? s ASCVD risk, goals and preferences. ACC/AHA Guidelines recommend high intensity statin if clinical ASCVD or LDL greater than or equal to 190 mg/dL. http://[employer].com/NON-ACZ-Wehlczfln Adults aged 40-75 with LDL 70-189 mg/dL should have their 10 year ASCVD risk estimated with the ACC/AHA ASCVD risk production estimator http://tools.acc.org/WIKSO-Here-Rutmmfvqd/ Statin should be discussed if risk greater [...] In Lab Patito Woods MD CHEMISTRY ORDERABLES [facility] [place] [address] * Comprehensive metabolic panel (non-fasting) (05/23/2019 2:21 PM EDT) Glucose 88 65 - 199 mg/dL [facility] Comment:Diabetes: >=200 mg/d L plus symptoms Blood Urea Nitrogen 15 8 - 18 mg/dL [facility] Creatinine 1.02 0.70 - 1.20 mg/dL [facility] Sodium 142 135 - 145 mmol/L [facility] Potassium 4.4 3.5 - 5.0 mmol/L [facility] Comment: Please note: ??Patients with WBC >100,000 may have falsely elevated Potassium levels. ??For accurate Potassium quantification in these patients send serum separator tube (gold top) for subsequent determinations. ??Contact the Clinical Chemistry Laboratory if there are any questions. Chloride 103 98 - 107 mmol/L [facility] Carbon Dioxide 25 22 - 31 mmol/L [facility] Anion Gap 14 5 - 15 mmol/L [facility] Calcium 9.4 8.5 - 10.5 mg/dL [facility] Protein, Total 7.3 6.1 - 8.0 gm/dL [facility] Albumin 4.6 3.2 - 5.2 gm/dL [facility] Aspartate Aminotransferase 15 0 - 30 unit/L [facility] Alanine Aminotransferase 19 0 - 30 unit/L [facility] Alkaline Phosphatase 72 40 - 104 unit/L [facility] Bilirubin, Total 0.3 0.2 - 1.3 mg/dL [facility] Est Glomerular Filtration Rate 64 >=60 mL/min/1. 73 m?? [facility] Comment: The eGFR was calculated using the CKD-EPI equation. As with all creatinine based estimates of kidney function, eGFR values calculated with the CKD-EPI equation are not accurate in patients with acute kidney failure, extremes of body mass or the acutely ill. http://[employer]/DHnkf eGFR 74 >=60 mL/min/1. 73 m?? [facility] Comment: The eGFR was calculated using the CKD-EPI equation. As with all creatinine based estimates of kidney function, eGFR values calculated with the CKD-EPI equation are not accurate in patients with acute kidney failure, extremes of body mass or the acutely ill. http://[employer].com/DHMCnkf Blood specimen (specimen) 05/23/2019 2:21 PM EDT 05/23/2019 4:33 PM EDT Narrative Resulting Agency Comment Spec In Lab Patito Woods MD CHEMISTRY ORDERABLES Performing Organization Address City/[facility] Co de Phone Number [facility] [place] [address] documented in this encounter Visit Diagnoses Diagnosis Acne, unspecified acne type Androgenetic alopecia Other alopecia High risk medication use Encounter for long-term (current) use of other medications documented in this encounter Care Teams Track Surfacing Machine Operator Relationship Specialty Start Date End Date Erna Garcia MD [address] [place] [address] PCP - General Family Medicine 09/18/17 06/01/19 documented as of this encounter
--- OUTSIDE RECORDS SUMMARY | 2024-09-09 02:17 | XMS_ITS | Referral Summary ---
Author Organization [facility] Address [address] [place] [address] Care Team Providers Care Rod Hanger Name Role Phone Carrie Herrera CARMEN Primary Care Provider [phone] Encounters Date Type Department Care Team Description 07/04/2024 Lab Requisition [facility] Pathology & Laboratory Medicine - [address] [address] Octavia Warner APRN Encounter for gynecological examination (general) (routine) without abnormal findings; Encounter for screening for malignant neoplasm of cervix; Encounter for general adult medical examination without abnormal findings from Last 3 Months Social History Tobacco Use Types Packs/Day Years Used Date Smoking Tobacco: Never Assessed Interpersonal Safety Answer Date Record ed Physically Hurt Never 06/24/2020 Verbally Threaten Not on file 06/24/2020 Sex and Gender Information Value Date Recorded Sex Assigned at Not on file Gender Identity Not on file Sexual Orientation Not on file Plan of Treatment Not on file Procedures Procedure Name Priority Date/Time Associated Diagnosis Comments PAP TEST Today 06/30/2024 14:15 EDT Encounter for gynecological examination (general) (routine) without abnormal findings Encounter for screening for malignant neoplasm of cervix Encounter for general adult medical examination without abnormal findings HPV DNA DETECTION WITH GENOTYPING, PCR Today 06/30/2024 14:15 EDT Encounter for gynecological examination (general) (routine) without abnormal findings Encounter for screening for malignant neoplasm of cervix Encounter for general adult medical examination without abnormal findings from Last 3 Months Results * PAP TEST (06/30/2024 14:15 EDT) Specimens A. Cervix and/or Endocervix , ThinPrep Imaging System with Manual Evaluation 07/08/2024 14:57 [facility] Specimen Adequacy Satisfactory for Evaluation - transformation zone component present 07/08/2024 14:57 [facility] General Categorization Negative for intraepithelial lesion or malignancy 07/08/2024 14:57 [facility] Descriptive Diagnosis Reactive cellular changes associated with inflammation present (includes repair). 07/08/2024 14:57 [facility] Attestation By the signature below, the attending physician certifies that they have personally conducted a gross and/or microscopic examination of the described specimens and rendered or confirmed the above diagnosis. 07/08/2024 14:57 [facility] at [address]57 Clinical History SEE BELOW 07/08/20 14:57 [facility] Performing Lab [facility] 07/08/2024 14:57 [facility] Scanned Images 07/08/2024 14:57 [facility] HPV High Risk type 16, PCR Negative 07/08/2024 14:57 [facility] HPV High Risk type 18, PCR Negative 07/08/2024 14:57 [facility] HPV Other High Risk Types, PCR Negative The following Other High Risk HPV types were not detected: 31,33, 35, 39, 45, 51, 52, 56, 58, 59, 66 and 68. 07/08/2024 14:57 [facility] Pap Test CERVIX UTERI STRUCTURE / Unknown 06/30/2024 14:15 EDT 07/04/2024 13:16 EDT Octavia Warner PAPER BALER PATHOLOGY ORDERAB LES [facility] [address] [place] [address] * HPV DNA DETECTION WITH GENOTYPING, PCR (06/30/2024 14:15 EDT) HPV High Risk type 16, PCR Negative Negative 07/08/2024 14:[address] [facility] HPV High Risk type 18, PCR Negative Negative 07/08/2024 14:[address] [facility] HPV other High Risk types, PCR Negative Negative 07/08/2024 14:[address] [facility] Comment: The following Other High Risk HPV types were not detected: ??31,33, 35, 39, 45, 51, 52, 56, 58, 59, 66 and 68. Pap Test CERVIX UTERI STRUCTURE / Unknown 06/30/2024 14:15 EDT 07/08/2024 8:44 EDT Octavia Warner PAPER BALER MICROBIOLOGY - GE NERAL ORDERABLES [facility] [address] [place] [address] from Last 3 Months Care Teams Rod Hanger Relationship Specialty Start Date End Date Carrie Herrera FNP [address] [place], [place] [id number] PCP - General 02/17/12
--- OUTSIDE RECORDS SUMMARY | 2024-09-09 02:17 | XMS_ITS | Encounter Summary ---
Author Organization [facility] [place] [address] Care Team Providers Care Plastic Mould Maker Name Role Phone Erna Garcia MD Primary Care Provider [phone] Encounter Details Date Type Department Care Team (Late st Contact Info) Description 05/21/2018 Telephone Dermatology at [facility] [address] [place] [address] Kadie Decker RN Social History [...] good. Knows to begin Spironolactone and will knot picker cloth later today or tomorrow. Pharmacy is in [...] on filedocumented in this encounter Care Teams Plastic Mould Maker Relationship Specialty Start Date End Date Erna Garcia MD [address] [place] [address] PCP - General Family Medicine 09/18/17 06/01/19 documented as of this encounter
--- OUTSIDE RECORDS SUMMARY | 2024-09-09 02:17 | XMS_ITS | Encounter Summary ---
Author Organization [facility] Address [address] [place] [address] Care Team Providers Care Children'S Aide Name Role Phone Carrie Herrera CARMEN Primary Care Provider [phone] Encounter Details Date Type Department Care Team (Latest Contact Info) Description 07/04/2024 Lab Requisition [facility] Pathology & Laboratory Medicine - [facility] [address] [place] [address] Octavia Warner, JAYDON [address] [facility] [address] [place] [address] Encounter for gynecological examination (general) (routine) without abnormal findings; Encounter for screening for malignant neoplasm of cervix; Encounter for general adult medical examination without abnormal findings Social History Tobacco Use Types Packs/Day Years [...] general adult medical examination without abnormal findings documented in this encounter Results * HPV DNA DETECTION WITH GENOTYPING, PCR (06/30/2024 14:15 EDT) HPV High Risk type 16, PCR Negative Negative 07/08/2024 14:57 EDT [facility] HPV High Risk type 18, PCR Negative Negative 07/08/2024 14:57 EDT [facility] HPV other High Risk types, PCR Negative Negative 07/08/2024 14:57 EDT [facility] Comment: The following Other High Risk HPV types were not detected: ??31,33, 35, 39, 45, 51, 52, 56, 58, 59, 66 and 68. Pap Test CERVIX UTERI STRUCTURE / Unknown 06/30/2024 14:15 EDT 07/08/2024 8:44 EDT Octavia Warner CHUCK TENDER MICROBIOLOGY - NERAL ORDERABLES Performing Organization Address City/State/[facility] [[email or web address]] Co de Phone Number [facility] [address] [place] [phone] * PAP TEST (06/30/2024 14:15 EDT) Specimens A. Cervix and/or Endocervix , ThinPrep Imaging System with Manual Evaluation 07/08/2024 14:57 [facility] Specimen Adequacy Satisfactory for Evaluation - transformation zone component present 07/08/2024 14:57 [facility] General Categorization Negative for intraepithelial lesion or malignancy 07/08/2024 14:57 [facility] Descriptive Diagnosis Reactive cellular changes associated with inflammation present (includes repair). 07/08/2024 14:57 [facility] Attestation By the signature below, the attending physician certifies that they have personally conducted a gross and/or microscopic examination of the described specimens and rendered or confirmed the above diagnosis. 07/08/2024 14:57 [facility] at [address] Clinical History SEE BELOW 07/08/20 14:57 [facility] Performing Lab [facility] 07/08/2024 14:57 EDT [facility] Scanned Images 07/08/2024 14:57 EDT [facility] HPV High Risk type 16, PCR Negative 07/08/2024 14:57 EDT [facility] HPV High Risk type 18, PCR Negative 07/08/2024 14:57 EDT [facility] HPV Other High Risk Types, PCR Negative The following Other High Risk HPV types were not detected: 31,33, 35, 39, 45, 51, 52, 56, 58, 59, 66 and 68. 07/08/2024 14:57 EDT [facility] Pap Test CERVIX UTERI STRUCTURE / Unknown 06/30/2024 14:15 EDT 07/04/2024 13:16 EDT Octavia Warner CHUCK TENDER PATHOLOGY ORDERAB LES Performing Organization Address City/State/[facility] [[email or web address]] Co de Phone Number [facility] [address] [place], [place] [phone] documented in this encounter Visit Diagnoses Diagnosis Encounter for gynecological examination (general) (routine) without abnormal findings Encounter for screening for malignant neoplasm of cervix Screening for malignant neoplasm of the cervix Encounter for general adult medical examination without abnormal findings Unspecified general medical examination documented in this encounter Care Teams Children'S Aide Relationship Specialty Start Date End Date Carrie Herrera FNP [address] [place] [address] PCP - General 02/17/12 documented as of this encounter
--- OUTSIDE RECORDS SUMMARY | 2024-09-09 02:17 | XMS_ITS | Encounter Summary ---
Author Organization [facility] [place] [address] Care Team Providers Care Spreader Box Operator Name Role Phone Erna Garcia MD Primary Care Provider [phone] Encounter Details Date Type Department Care Team (Late st Contact Info) Description 05/24/2019 Telephone Dermatology at [facility] [address] [place] [address] Clraence Schmid MD [facility] [address] [place] [address] Social History Tobacco Use Types Packs/Day Years [...] best number to reach Campos Mckeon is [phone]. Cecilia Giron, Clinical [place] documented in this encounter Plan of Treatment Not on file documented as of this encounter Visit Diagnoses Not on filedocumented in this encounter Care Teams Spreader Box Operator Relationship Specialty Start Date End Date Erna Garcia MD [address] [place] [address] PCP - General Family Medicine 09/18/17 06/01/19 documented as of this encounter
--- OUTSIDE RECORDS SUMMARY | 2024-09-09 02:17 | XMS_ITS | Encounter Summary ---
Author Organization [facility] Address [address] [place] [address] Care Team Providers Care Fusion Analyst Name Role Phone Carrie Herrera [employer] Primary Care Provider [phone] Encounter Details Date Type Department Care Team (Late st Contact Info) Description 08/22/2019 Results Only [facility]- [facility] [phone] Cassie Pineda MD [address] [place] [address] [address] [place] [id number] Social History Tobacco Use Types Packs/Day Years [...] ? ODALIS CARROLL ? Accession #: ? [id number] ? : ? 1970 (Age: 49) ??F ? Collect Date: ? 08/22/2019 ? Location: ? [facility] ? Receive Date: ? 08/22/2019 ? Provider: CASSIE PINEDA MD Copy to: SHANNA GONZALEZ LAN SPECIALIST ? Final Pathologic Diagnosis: A. ??COLON, TRANSVERSE, [...] (ASCP) 08/22/2019 5:33 PM End of Report [facility] 08/22/2019 16:3 7 EDT 08/22/2019 16:37 EDT Cassie Pineda MD PATHOLOGY ORDERJose A GAMA [facility] [address] [place] [address] documented in this encounter Visit Diagnoses Not on filedocumented in this encounter Care Teams Fusion Analyst Relationship Specialty Start Date End Date Carrie Herrera FNP [address] [place], [place] [id number] PCP - General 02/17/12 documented as of this encounter
--- OUTSIDE RECORDS SUMMARY | 2024-09-09 02:17 | XMS_ITS | Encounter Summary ---
Author Organization [facility] Address [address] [place] [address] Care Team Providers Care Endless Bed Drum Sander Name Role Phone Carrie Herrera WOODWIND INSTRUMENTS INSPECTOR Primary Care Provider [phone] Encounter Details Date Type Department Care Team (Late st Contact Info) Description 05/31/2019 Results Only [facility]- [facility] [phone] Shanna Gonzalez, MAORI PHYSIOTHERAPIST [address] [facility] [address] [place] [phone] Social History Tobacco Use Types Packs/Day Years [...] ? ODALIS CARROLL ? Accession #: ? [id number] ? : ? 1970 (Age: 49) ??F ?Collect Date: ? 05/31/2019 ? Location: ? [facility] ? Receive Date: ? 06/01/2019 ? Provider: SHANNA GONZALEZ MAORI PHYSIOTHERAPIST Copy to: ? Final Report SPECIMEN ADEQUACY [...] types 16,18,31,33,35, 39,45,51,52,56,58, 59,66, and 68 by acute care nurse mediated amplification. Comments Document reviewed and electronically signed by: ? System Interface ? Report date: 06/03/2019 By the signature above, the attending physician certifies that he/she has personally conducted a gross and/or microscopic examination of the described specimens and rendered or confirmed the above diagnosis. End of Report [facility] 05/31/2019 06/01/2019 Shanna Madhuri Timmy MAORI PHYSIOTHERAPIST PATHOLOGY ORDERAB LES [facility] [address] [place] [address] documented in this encounter Visit Diagnoses Not on filedocumented in this encounter Care Teams Endless Bed Drum Sander Relationship Specialty Start Date End Date Carrie Herrera FNP [address] [place] [address] PCP - General 02/17/12 documented as of this encounter
--- OUTSIDE RECORDS SUMMARY | 2024-09-09 02:17 | XMS_ITS | Encounter Summary ---
Author Organization [facility] [place] [address] Care Team Providers Care Rug Cutter Name Role Phone Erna Garcia MD Primary Care Provider [phone] Encounter Details Date Type Department Care Team (Late st Contact Info) Description 05/30/2019 Telephone Dermatology at [facility] [address] [place] [address] CallClarence MD [facility] [address] [place] [address] Social History Tobacco Use Types Packs/Day Years [...] on filedocumented in this encounter Care Teams Rug Cutter Relationship Specialty Start Date End Date Erna Garcia MD [address] [place] [address] PCP - General Family Medicine 09/18/17 06/01/19 documented as of this encounter
--- OUTSIDE RECORDS SUMMARY | 2024-09-09 02:17 | XMS_ITS | Encounter Summary ---
Author Organization [facility] Address [address] [place] [address] Care Team Providers Care Colorist Photography Name Role Phone Carrie Herrera LEGAL AID Primary Care Provider [phone] Encounter Details Date Type Department Care Team (Late st Contact Info) Description 02/05/2018 Results Only [facility] [phone] Shanna Gonzalez, OCCUPATIONAL WORK EXPERIENCE TEACHER [address] [facility] [address] [place] [phone] Social History Tobacco Use Types Packs/Day Years [...] ? ODALIS CARROLL ? Accession #: ? [id number] ? : ? 1970 (Age: 47) ??F ?Collect Date: ? 02/05/2018 ? Location: ? [facility] ? Receive Date: ? 02/09/2018 ? Provider: SHANNA GONZALEZ OCCUPATIONAL WORK EXPERIENCE TEACHER Copy to: ? Final Report SPECIMEN ADEQUACY [...] types 16,18,31,33,35, 39,45,51,52,56,58, 59,66, and 68 by crisis worker mediated amplification. Comments Document reviewed and electronically signed by: ? System Interface ? Report date: 02/15/2018 By the signature above, the attending physician certifies that he/she has personally conducted a gross and/or microscopic examination of the described specimens and rendered or confirmed the above diagnosis. End of Report [facility] 02/05/2018 02/09/2018 Shanna Gonzalez OCCUPATIONAL WORK EXPERIENCE TEACHER PATHOLOGY ORDERAB LES [facility] [address] [place] [address] documented in this encounter Visit Diagnoses Not on filedocumented in this encounter Care Teams Colorist Photography Relationship Specialty Start Date End Date Carrie Herrera FNP [address] [place] [address] PCP - General 02/17/12 documented as of this encounter
--- OUTSIDE RECORDS SUMMARY | 2024-09-09 02:17 | XMS_ITS | Encounter Summary ---
Author Organization [place] [address] Care Team Providers Care Major Appliance Assembly Supervisor Name Role Phone Octavia Warner APRN Primary Care Provider [phone] Encounter Details Date Type Department Care Team (Late st Contact Info) Description 08/12/2019 Orders Only [facility] [address] [place] [address] Ortiz Barragan MD [facility] [place] [address] Social History Tobacco Use Types Packs/Day Years [...] on filedocumented in this encounter Care Teams Major Appliance Assembly Supervisor Relationship Specialty Start Date End Date Octavia Warner APRN [address] [place] [address] PCP - General Family Medicine 06/02/19 documented as of this encounter
--- OUTSIDE RECORDS SUMMARY | 2024-09-09 02:17 | XMS_ITS | Encounter Summary ---
Author Organization [facility] [place] [address] Care Team Providers Care Cloth Neutralizer Name Role Phone Erna Garcia MD Primary Care Provider [phone] Reason for Visit * Reason Comments Acne Alopecia Follow-up Encounter Details Date Type Department Care Team (Late st Contact Info) Description 02/24/2019 1:30 PM EDT Office Visit Dermatology at [facility] [address] [place] [address] Clarence Schmid MD [facility] [address] [place] [address] Perioral dermatitis; Androgenetic alopecia Social History Tobacco [...] no ?? 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
--- OUTSIDE RECORDS SUMMARY | 2024-09-09 02:17 | XMS_ITS | Encounter Summary ---
[place] [address] Care Team Providers Care Vice Investigator Name Role Phone Octavia Warner APRN Primary Care Provider [phone] Encounter Details Date Type Department Care Team (Late st Contact Info) Description 07/19/2019 Telephone [place] [phone] Coco Dutton Social History Tobacco Use Types [...] letter of support 2. Psychological Eval(s) - [facility] 07/20 3. 2 remaining months of Dietary Counseling 4. Colonoscopy Results - [facility]. 08/22 5. Has Sleep Eval on 08-11 - will need those results She is aware that her NPW will be scheduled upon the completion of her requirements of the program documented in this encounter Plan of Treatment Not on file documented as of this encounter Visit Diagnoses Not on filedocumented in this encounter Care Teams Vice Investigator Relationship Specialty Start Date End Date Octavia Warner APRN [address] [place] [address] PCP - General Family Medicine 06/02/19 documented as of this encounter
--- OUTSIDE RECORDS SUMMARY | 2024-09-09 02:17 | XMS_ITS | Clinical Summary ---
Author Organization [facility] [place] [address] Care Team Providers Care Linux Systems Administrator Name Role Phone Octavia Warner APRN Primary Care Provider [phone] Allergies No known active allergies Medications Medication [...] Hepatitis B vaccine (0-59 yrs) (1) 1988 Tetanus/Diphtheria/Pertussis Vaccines (1 - Tdap) 1988 HPV test 1999 PAP Smear 1999 Breast Cancer Share Decision Needed 2009 Breast Cancer screening 2009 Zoster vaccine (1 of 2) 2019 Advance Directive 2024 Covid-19 Vaccine (1 - season) 2024 Influenza (Flu) vaccine (1 o f [...] EDT) Glucose 88 65 - 199 mg/dL [facility] Comment:Diabetes: >=200 mg/d L plus symptoms Blood Urea Nitrogen 15 8 - 18 mg/dL [facility] Creatinine 1.02 0.70 - 1.20 mg/dL [facility] Sodium 142 135 - 145 mmol/L [facility] Potassium 4.4 3.5 - 5.0 mmol/L [facility] Comment: Please note: ??Patients with WBC >100,000 may have falsely elevated Potassium levels. ??For accurate Potassium quantification in these patients send serum separator tube (gold top) for subsequent determinations. ??Contact the Clinical Chemistry Laboratory if there are any questions. Chloride 103 98 - 107 mmol/L [facility] Carbon Dioxide 25 22 - 31 mmol/L [facility] Anion Gap 14 5 - 15 mmol/L [facility] Calcium 9.4 8.5 - 10.5 mg/dL [facility] Protein, Total 7.3 6.1 - 8.0 gm/dL [facility] Albumin 4.6 3.2 - 5.2 gm/dL [facility] Aspartate Aminotransferase 15 0 - 30 unit/L [facility] Alanine Aminotransferase 19 0 - 30 unit/L [facility] Alkaline Phosphatase 72 40 - 104 unit/L [facility] Bilirubin, Total 0.3 0.2 - 1.3 mg/dL [facility] Est Glomerular Filtration Rate 64 >=60 mL/min/1. 73 m?? [facility] Comment: The eGFR was calculated using the CKD-EPI equation. As with all creatinine based estimates of kidney function, eGFR values calculated with the CKD-EPI equation are not accurate in patients with acute kidney failure, extremes of body mass or the acutely ill. http://[employer]/[facility] eGFR 74 >=60 mL/min/1. 73 m?? [facility] Comment: The eGFR was calculated using the CKD-EPI equation. As with all creatinine based estimates of kidney function, eGFR values calculated with the CKD-EPI equation are not accurate in patients with acute kidney failure, extremes of body mass or the acutely ill. [email or web address]/[facility] Blood specimen (specimen) 05/23/2019 2:21 PM EDT 05/23/2019 4:33 PM EDT Narrative Resulting Agency Comment Spec In Lab Brian Woods MD CHEMISTRY ORDERABLES [facility] [place] [address] from Last 3 Months or Most Recently Relevant to Health Maintenance Care Teams Linux Systems Administrator Relationship Specialty Start Date End Date Octavia Warner APRN [address] [place] [address] PCP - General Family Medicine 06/02/19
--- OUTSIDE RECORDS SUMMARY | 2024-09-09 02:17 | XMS_ITS | Encounter Summary ---
Author Organization [facility] Address [address] [place] [address] Care Team Providers Care Person Investigator Name Role Phone Carrie Herrera Primary Care Provider [phone] Encounter Details Date Type Department Care Team (Latest Contact Info) Description 08/22/2019 13:14 EDT - 08/22/2019 23:59 EDT Hospital Encounter [address] [address] Unknown, Provider, Discharge Disposition: Auto Discharge Social [...] on filedocumented in this encounter Care Teams Person Investigator Relationship Specialty Start Date End Date Carrie Herrera FNP [address] [place] [address] PCP - General 02/17/12 documented as of this encounter
--- OUTSIDE RECORDS SUMMARY | 2024-09-09 02:17 | XMS_ITS | Encounter Summary ---
Author Organization [facility] [place] [address] Care Team Providers Care Family Development Extension Specialist Name Role Phone Erna Garcia MD Primary Care Provider [phone] Reason for Visit * Reason Comments Follow-up Encounter Details Date Type Department Care Team (Late st Contact Info) Description 05/20/2018 10:00 AM EDT Office Visit Dermatology at [facility] [address] [place] [address] Clarence Schmid MD [facility] [address] [place] [address] Acne, unspecified acne type; Androgenetic alopecia Social [...] Melanoma: no Social History: - lives on [facility] - [employer] for elementary [employer] - 2 children - [...] by: Clarence Schmid MD Resident in Dermatology [facility] Patient seen and evaluated with staff engineering administrator: Shanna Encarnacion MD Section of Dermatology [facility] * Shanna Encarnacion MD - 05/20/2018 10:00 [...] EDT) Glucose 99 65 - 199 mg/dL [facility] Comment:Diabetes: >=200 mg/d L plus symptoms Blood Urea Nitrogen 10 8 - 18 mg/dL [facility] Creatinine 0.91 0.70 - 1.20 mg/dL [facility] Sodium 141 135 - 145 mmol/L [facility] Potassium 4.5 3.5 - 5.0 mmol/L [facility] Comment: Please note: ??Patients with WBC >100,000 may have falsely elevated Potassium levels. ??For accurate Potassium quantification in these patients send serum separator tube (gold top) for subsequent determinations. ??Contact the Clinical Chemistry Laboratory if there are any questions. Chloride 102 98 - 107 mmol/L [facility] Carbon Dioxide 26 22 - 31 mmol/L [facility] Anion Gap 13 5 - 15 mmol/L [facility] Calcium 9.6 8.5 - 10.5 mg/dL [facility] Protein, Total 6.9 6.1 - 8.0 gm/dL [facility] Albumin 4.0 3.2 - 5.2 gm/dL [facility] Aspartate Aminotransferase 13 0 - 30 unit/L [facility] Alanine Aminotransferase 11 0 - 30 unit/L [facility] Alkaline Phosphatase 64 40 - 104 unit/L [facility] Bilirubin, Total 0.4 0.2 - 1.3 mg/dL [facility] Est Glomerular Filtration Rate 74 >=60 mL/min/1. 73 m?? [facility] Comment: The eGFR was calculated using the CKD-EPI equation. As with all creatinine based estimates of kidney function, eGFR values calculated with the CKD-EPI equation are not accurate in patients with acute kidney failure, extremes of body mass or the acutely ill. http://[employer]/RideApartnkdep http://[employer]/[facility] ALVAnkf eGFR 86 >=60 mL/min/1. 73 m?? [facility] Comment: The eGFR was calculated using the CKD-EPI equation. As with all creatinine based estimates of kidney function, eGFR values calculated with the CKD-EPI equation are not accurate in patients with acute kidney failure, extremes of body mass or the acutely ill. http://[employer]/RideApartnkdep http://[employer]/MCnkf Blood specimen (specimen) 05/20/2018 11:15 AM EDT 05/20/2018 1:02 PM EDT Narrative Resulting Agency Comment Spec In Lab Shanna Encarnacion MD CHEMISTRY ORDERABLES [facility] [place] [address] documented in this encounter Visit Diagnoses Diagnosis Acne, unspecified acne type Androgenetic alopecia Other alopecia documented in this encounter Care Teams Family Development Extension Specialist Relationship Specialty Start Date End Date Erna Garcia MD [address] [place] [address] PCP - General Family Medicine 09/18/17 06/01/19 documented as of this encounter
--- OUTSIDE RECORDS SUMMARY | 2024-09-09 02:17 | XMS_ITS | Clinical Summary ---
Author Organization [facility] Address [address] [place] [address] Care Team Providers Care Gas Or Water Meter Installer Name Role Phone Carrie Herrera CARMEN Primary Care Provider [phone] Encounters Date Type Department Care Team Description 07/04/[address] [facility] Pathology & Laboratory Medicine - [address] [address] Octavia Warner APRN Encounter for gynecological examination [...] series) 05/15 COVID-19 Vaccine ( season) 2023 Procedures Procedure Name Priority Date/Time Associated Diagnosis [...] Imaging System with Manual Evaluation 07/08/2024 14:57 [facility] Specimen Adequacy Satisfactory for Evaluation - transformation zone component present 07/08/2024 14:57 EDT [facility] General Categorization Negative for intraepithelial lesion or malignancy 07/08/2024 14:57 EDT [facility] Descriptive Diagnosis Reactive cellular changes associated with inflammation present (includes repair). 07/08/2024 14:57 [facility] Attestation By the signature below, the attending physician certifies that they have personally conducted a gross and/or microscopic examination of the described specimens and rendered or confirmed the above diagnosis. 07/08/2024 14:57 [facility] at 1457 Clinical History SEE BELOW 07/08/20 14:57 [facility] Performing Lab [facility] 07/08/2024 14:57 [facility] Scanned Images 07/08/2024 14:57 [facility] HPV High Risk type 16, PCR Negative 07/08/2024 14:57 [facility] HPV High Risk type 18, PCR Negative 07/08/2024 14:57 [facility] HPV Other High Risk Types, PCR Negative The following Other High Risk HPV types were not detected: 31,33, 35, 39, 45, 51, 52, 56, 58, 59, 66 and 68. 07/08/2024 14:57 [facility] Pap Test CERVIX UTERI STRUCTURE / Unknown 06/30/2024 14:15 EDT 07/04/2024 13:16 EDT Octavia Warner MERCHANDISE FLOW TEAM LEADER PATHOLOGY ORDERAB LES [facility] [address] [place] [address] * HPV DNA DETECTION WITH GENOTYPING, PCR (06/30/2024 14:15 EDT) HPV High Risk type 16, PCR Negative Negative 07/08/2024 14:57 EDT [facility] HPV High Risk type 18, PCR Negative Negative 07/08/2024 14:57 EDT [facility] HPV other High Risk types, PCR Negative Negative 07/08/2024 14:57 EDT [facility] Comment: The following Other High Risk HPV types were not detected: ??31,33, 35, 39, 45, 51, 52, 56, 58, 59, 66 and 68. Pap Test CERVIX UTERI STRUCTURE / Unknown 06/30/2024 14:15 EDT 07/08/2024 8:44 EDT Octavia Warner MERCHANDISE FLOW TEAM LEADER MICROBIOLOGY - GE NERAL ORDERABLES [facility] [address] [place] [address] from Last 3 Months Care Teams Gas Or Water Meter Installer Relationship Specialty Start Date End Date Carrie Herrera FNP [address] [place] [address] PCP - General 02/17/12
--- OUTSIDE RECORDS SUMMARY | 2024-09-09 02:17 | XMS_ITS | Encounter Summary ---
Author Organization [facility] Address [address] [place] [address] Care Team Providers Care Circle Cutting Saw Operator Name Role Phone Unavailable Primary Care Provider Unavailabl e Encounter Details Date Type Department Care Team (Late st Contact Info) Description 02/13/2012 Results Only [facility] - [facility] ([facility] [address] [place] [phone] Eber Fraser DPM [address] [place] [phone] Social History Tobacco Use Types Packs/Day [...] ? ODALIS CARROLL ? Accession #: ? [id number] ? : ? 1970 (Age: 41) ??F ? Collect Date: ? 02/13/2012 ? Location: ? [facility] ? Receive Date: ? 02/13/2012 ? Provider: EBER FRASER DPM Copy to: ROSY IBIS ROCK CUTTER ? Final Pathologic Diagnosis: ? Soft tissue [...] PATHOLOGY ORDERAB LES [facility] [address] [place] [address] documented in this encounter Visit Diagnoses Not on filedocumented in this encounter
--- OUTSIDE RECORDS SUMMARY | 2024-09-09 02:17 | XMS_ITS | Encounter Summary ---
Author Organization [facility] [place] [address] Care Team Providers Care Forming Machine Upkeep Mechanic Helper Name Role Phone Erna Garcia MD Primary Care Provider [phone] Encounter Details Date Type Department Care Team (Late st Contact Info) Description 11/04/2017 Telephone Dermatology at [facility] [address] [place] [address] Sonam Best MD [facility] [address] [place] [address] Social History Tobacco Use Types Packs/Day Years [...] on filedocumented in this encounter Care Teams Forming Machine Upkeep Mechanic Helper Relationship Specialty Start Date End Date Erna Garcia MD [address] [place] [address] PCP - General Family Medicine 09/18/17 06/01/19 documented as of this encounter
[2024-09-09 12:28] LABS: ALT 26 U/L (14-59); AST 15 U/L (15-37); Albumin 3.7 g/dL (3.4-5.0); Alkaline Phosphatase 77 U/L (46-116); Anion Gap 11.6 mmol/L (3-11); BUN 15 mg/dL (7-18); Bilirubin, Total 0.61 mg/dL (0.2-1.0); CO2 24.4 mmol/L (21.0-32.0); CREATININE 0.9 mg/dL (0.55-1.02); Calcium 9.1 mg/dL (8.5-10.1); Calculated LDL 85 mg/dL (<100); Chloride 107 mmol/L (98-107); Cholesterol 154 mg/dL (<200); Glucose 98 mg/dL (74-106); HDL Cholesterol 54 mg/dL (40-60); Potassium 4.1 mmol/L (3.5-5.1); Sodium 143 mmol/L (136-145); Total Protein 7.4 g/dL (6.4-8.2); Triglyceride 75 mg/dL (<150)
== END 2024-09-09 02:06 | disposition home or self-care (01) ==
LOC: LBO 02:05
PROVIDERS: PCP Nurse Practitioner Family; Visit Provider Nurse Practitioner Family
DX: E78.5 Hyperlipidemia, unspecified (principal)
CPT/HCPCS: 36415; 80053; 80061

== ENCOUNTER 2024-09-14 01:47 | Outpatient (CLI) | payer MEDICAID, SELFPAY ==
--- NOTE | 2024-09-14 13:15 | DI.MAMMO_ITS ---
Exam(s) MAMMO SCREENING EXAM: MAMMO SCREENING CLINICAL HISTORY: SCREENING, Z12.31. TECHNIQUE: Bilateral full field digital CC and MLO mammographic images were obtained with 3D tomosyn thesis and utilizing computer aided detection (CAD). COMPARISON: Prior mammograms were reviewed. FINDINGS: There has been no significant change in the appearance and distribution of the fibroglandular tissue. Benign-appearing nodule in the upper quadrant of the right breast is unchanged from prior mammograms and probably benign intramammary lymph node. There are no new spiculated masses nor malignant appearing microcalcification groups. There is no significant architectural distortion nor skin thickening-retraction. IMPRESSION: No radiographic evidence of malignancy. BI-RADS Category 1 - Negative Breast Density - Category B - Scattered areas of fibroglandular density Breast density Category C or D implies that the patient has dense breast tissue. Dense breast tissue can make it harder to find cancer on a mammogram. Dense breast tissue is also associated with an incr eased risk of breast cancer. This information about the result of the mammogram report was provided to the patient to raise their awareness. Use this report when you speak with the patient about their risks for breast cancer, which includes their family history. At that time, you may recommend additional screening tests (Ultrasoun d or MRI) as these tests may add significant information. A negative radiographic report should not delay biopsy if a dominant or clinically suspicious mass is present. Up to ten percent of cancers are not identified on mammography. A negative report may reinforce clinical impression. Adenosis and dense breasts may obscure an underlying neoplasm. False positive reports average 6 to 10%. Patient will receive a letter notifying them of these results.
== END 2024-09-14 02:07 ==
LOC: DI 01:47
PROVIDERS: PCP Nurse Practitioner Family; Visit Provider Nurse Practitioner Family
DX: Z12.31 Encounter for screening mammogram for malignant neoplasm of breast (principal)
CPT/HCPCS: 77063; 77067

== ENCOUNTER 2025-09-01 11:20 | Outpatient (CLI) | payer MEDICAID, SELFPAY ==
--- NOTE | 2025-09-01 11:15 | RT.EKG_ITS ---
APPROVED REPORT Exam: Resting ECG Reason for Exam: chest pain Patient Location: O HR:65 bpm ECG Measurements Heart Rate 65 AXIS WY 136 P 6 QRSd 92 QRS 14 QT 409 T 14 QTc 426 Conclusion Sinus rhythm...normal P axis, V-rate 50- 99 Normal Electrocardiogram
== END 2025-09-01 11:21 | disposition home or self-care (01) ==
LOC: DI.CM 11:21
PROVIDERS: PCP Nurse Practitioner Family; Visit Provider Nurse Practitioner Family
DX: R07.9 Chest pain, unspecified (principal)
CPT/HCPCS: 93010

== ENCOUNTER 2025-09-01 12:26 | Emergency (ER) | payer MEDICAID, SELFPAY ==
[2025-09-01] VITALS (18 sets, daily range): BP systolic 121–152; BP diastolic 51–80; PULSE 59–80; RESP 12–20; TEMP 36.9; O2SAT 97–100
--- NOTE | 2025-09-01 12:15 | RT.EKG_ITS ---
APPROVED REPORT Exam: Resting ECG Reason for Exam: chest pain Patient Location: E HR:64 bpm ECG Measurements Heart Rate 64 AXIS MD 143 P -18 QRSd 83 QRS 10 QT 406 T 22 QTc 418 Conclusion Sinus rhythm...normal P axis, V-rate 60- 99 Anterior infarct, age indeterminate...Q >35mS, T neg, in V2-V5
--- NOTE | 2025-09-01 12:30 | DI.RAD_ITS ---
Exam(s) XR CHEST 2V PA LATERAL EXAM: XR CHEST 2V PA LATERAL CLINICAL HISTORY: Chest pain. TECHNIQUE: 2D digital imaging was performed. COMPARISON: No exams were available for comparison FINDINGS: 2 views: Heart size is normal. The mediastinum is not widened. Lungs are clear. No infiltrates nor pleural effusions. IMPRESSION: No acute pulmonary findings. DATA REPOSITORY: RADIATION DOSE DELIVERED:
--- NOTE | 2025-09-01 12:37 | W.ED.GENAD ---
Discharge Plan Disposition Patient Disposition: Home Condition: Improving Discharge Details Clinical Impression: Chest pain, Pancreatitis Primary Care Provider: Octavia Warner ED Provider: Ronald Naqvi Home Meds and New Rx's Prescriptions: Continued ropinirole 1 mg tablet 1 mg PO QHS Rx Instructions: administer 1-3 hours before bedtime Zepbound 5 mg/0.5 mL pen injector 5 mg subcut QWEEK Discharge Instructions Instructions: Acute pancreatitis, Chest Pain, Adult ED Additional Instructions: Workup in the ER is reassuring for any evidence of pulmonary embolism or acute coronary syndrome. As we discussed your lipase was slightly elevated which is consistent with mild pancreatitis and certainly can be consistent with your symptoms and presentation. Recommend [id number] Tylenol and/or Motrin for discomfort. Clear liquid diet over the weekend, advancing as tolerated. We did discuss additional prescription pain medication but you have declined. We also discussed the incidental findings on your CAT scan of the left thyroid lobe nodule and uterine endometrium possible enlargement, both could be evaluated as an outpatient through ultrasound. Please watch for new or worsening symptoms and return immediately to the ER. Otherwise please follow-up with your primary care provider as already scheduled on Thursday, please make them aware of your ER visit. They may want to recheck your lipase levels to see if they are trending upward depending on your clinical presentation. Again, recommend outpatient ultrasound of both your uterus and thyroid for further evaluation. HPI General Mode of arrival: ambulatory. Date/Time Provider Initiated Documentation: 09/01/25 12:36. Limitations to Documentation: no limitations. Information obtained by: patient and family. History of Present Illness 55 year old F presents to the emergency department with the chief complaint of Left sided chest pain, described as moderate, with intensity rated at 7. Quality is described as sharp, and is localized to the chest and left. Patient reports no radiation. Patient started experiencing this hour(s) (4 about 9:30 AM) and it has been intermittent. No relieving factors improve symptom(s), Movement worsens symptoms and Other factors that worsen symptoms (Emotional state such as anxiety) . Patient notes no other symptoms.. Patient did receive the following treatments prior to arrival, NSAID and other ([id number] antacids) Related Data Home Medications ?Medication ?Instructions ?Recorded ?Confirmed ropinirole 1 mg tablet 1 mg PO QHS 08/05/22 09/01/25 tirzepatide (weight loss) 5 mg/0.5 5 mg subcut QWEEK 09/01/25 09/01/25 mL subcutaneous pen injector (Zepbound) Allergies Allergy/AdvReac Type Severity Reaction Status Date / Time No Known Allergies Allergy Verified 09/01/25 12:34 General Stated Complaint: Chest Pain ALBERTO: 3 Review of Systems Constitutional Constitutional: Denies fatigue, Denies fever(s), Denies headache(s) and Denies weakness ENT Ears, Nose, Mouth, and Throat: Denies headache(s) and Denies neck pain Cardiovascular Cardiovascular: Reports chest pain and Reports dyspnea Respiratory Respiratory: Denies cough and Reports dyspnea Gastrointestinal Gastrointestinal: Denies abdominal pain, Denies nausea and Denies vomiting Genitourinary Genitourinary: Denies dysuria Musculoskeletal Musculoskeletal: Denies back pain and Denies neck pain Integumentary/Breasts Skin/Breast: Denies rash Neurologic Neurologic: Denies headache(s) and Denies weakness Psychiatric Psychiatric: Reports anxiety Endocrine Endocrine: Denies fatigue Hematologic/Lymphatic Hematologic/Lymphatic: Denies easy bleeding and Denies easy bruising Exam Const General: cooperative, healthy appearing, comfortable, no acute distress and anxious (Slightly) Orientation: alert and awake HENMO Head: normal to inspection, normocephalic and atraumatic Face and sinus: normal facial exam Mouth: moist mucous membranes Eyes General: appearance normal, both eyes and all related structures Conjunctivae: conjunctivae normal Neck Neck: normal visual inspection, full ROM, no meningeal signs, trachea midline and supple Chest Chest: normal inspection of the chest and normal palpation of entire chest wall Resp Effort & Inspection: normal respiratory effort and able to speak in complete sentences Auscultation: clear to auscultation bilaterally Cardio Rate: regular rate Rhythm: regular rhythm GI Inspection: normal to inspection Palpation: soft, not firm, no guarding and nontender Auscultation: normal bowel sounds Back/Spine/Pelvis Back: no CVA tenderness and No back tenderness Skin General skin exam: no rashes or lesions noted Neuro General: patient alert, patient awake, moves all extremities and no focal motor deficits Cognition: normal cognition Speech: speech normal Gait: normal gait Motor: muscle tone normal throughout Sensory Exam: no sensory deficits noted Extrem General: normal to inspection, full ROM, capillary refill normal, no pedal edema, no calf tenderness and normal gait Psych Appearance: grossly normal Mental Status: mental status grossly normal Course Vital Signs Vital signs: Vital Signs Temperature 36.9 C 09/01/25 12: Pulse 73 09/01/25 12:28 Respiratory Rate 16 09/01/25 12:28 Blood Pressure 152/80 H 09/01/25 12:28 Pulse Oximetry 98 09/01/25 12:28 Temperature 36.9 C 09/01/25 12:28 Pulse 73 09/01/25 12:28 Respiratory Rate 16 09/01/25 12:28 Blood Pressure 152/80 H 09/01/25 12:28 Pulse Oximetry 98 09/01/25 12:28 Pain Level 5 09/01/25 12:28 Medical Decision Making This is a 55-year-old non-smoking female, drinks alcohol once a month, past medical history of anxiety and depression, hyperlipidemia (discontinued her medications years ago), obesity, currently taking Zepbound with 45 pound weight loss over the last year, GERD, PCOS, insomnia, presenting to the ER for left-sided nonradiating chest pain that began around 9-930 this morning. Cannot think of any exacerbating factors when the pain began. Since then the pain has been intermittent and typically worse with taking deep breaths, various movement, and when she begins to think about her symptoms she gets anxious which causes them to become worse. She has never felt anything of this previously. She took 2 opmq-lzz-[id number] antacids without relief. No change in appetite. Denies recent injury or illness. She did just complete a cross-country road trip 1 week ago. No history of DVT or PE. She was seen at the urgent care, given full dose aspirin and sent to the ER for further evaluation. Clinically she appears well, nontoxic, hemodynamically stable, slightly anxious. O2 sat is 100% while I am in the room speaking with her. She is afebrile. Calves are soft and nontender. Plan to obtain IV access, routine screening laboratory values including troponin, delta troponin, and D-dimer. Differential includes but not excluded to ACS, PE, pneumonia, costochondritis, hiatal hernia, pericarditis, pancreatitis, etc. Laboratory values reveal no evidence of leukocytosis. D-dimer is negative at 300. Electrolytes unremarkable. LFTs unremarkable. Initial troponin less than 4. BNP 27. Lipase is minimally elevated at 104. Chest x-ray was originally reviewed by me and confirmed by radiology as no acute pulmonary findings. Discussed workup in length with patient and family. She admits that the pain has been intermittent since she has been here and she is currently asymptomatic. She appears well, nontoxic, remains hemodynamically stable. Symptoms certainly could be related to mild pancreatitis. Discussed reassuring workup thus far. Awaiting delta troponin. Will obtain CT of the abdomen pelvis to further evaluate mild pancreatitis. While her D-dimer is unremarkable, she does admit to continued shortness of breath that is worse with taking a deep breath and positional. She remains anxious. Will extend the CTA through her chest to further evaluate any possible pulmonary explanations. Patient will also be given 30 IV Toradol. Delta troponin 4 Upon reevaluation she is resting comfortably, admits that the Toradol has helped with her discomfort, currently asymptomatic. Chest CTA read by radiology as possible enlarged uterine endometrium, could further be studied with ultrasound. Abnormal appearing nodule of the left thyroid lobe, recommend ultrasound. No evidence of acute pulmonary emboli or pulmonary infarct. No evidence of dissection or pericardial effusion. Incidental aberrant right subclavian artery. Nonspecific increased markings both lower lobes probably related to under aeration. No pleural effusions. Again discussed these findings with patient and . Discussed incidental findings of the thyroid nodule and thickened endometrium, recommend outpatient ultrasound through her PCP. Discussed likely mild pancreatitis, clear liquid diet over the weekend advancing diet as tolerated, and [id number] Tylenol and/or Motrin. Discussed additional prescription for analgesia but patient declines. Discussed the importance of watching for new or worsening symptoms and returning immediately to the ER. She currently feels well, asymptomatic, and is comfortable going home in her current condition. She is already scheduled to see her PCP on Thursday and has good outpatient follow-up. Standard discharge and return precautions were provided. Patient understands, is agreeable to this plan, and has no additional questions or concerns upon discharge. This documentation was generated using [employer] system, please disregard any oddities of phrase or misspellings. Medical Records Medical records reviewed: Yes I reviewed the patient's medical records. Lab Data Lab results reviewed: Yes I reviewed the patient's lab results. ECG Data Attestation: I personally reviewed and interpreted this ECG (s) as follows: Interpretation: Sinus rhythm, ventricular rate of 64. No STEMI. Please see official report by Dr. Fierro [facility] All Active Problems (Updated 09/01/25 @ 15:24 by ASAEL Williamson) Pancreatitis (Chronic) Chest pain (Acute) Sesamoid pain (Acute) Restless leg syndrome (Acute) Colorectal polyps (Acute ~08/22/19) S/P colonoscopy (Acute ~08/22/19) Overflow incontinence (Acute) Pedal edema (Acute) Insomnia (Acute) GERD (gastroesophageal reflux disease) (Chronic) Polycystic ovarian disease (Acute) Obesity (Chronic) Hyperlipidemia (Acute) Anxiety and depression (Acute) Medical History Anemia Surgical History Hx of toe surgery Per Pt L nerve surgury rehana 2nd & 3rd toe History of bunionectomy Bilateral Social History Smoking/Tobacco Use Status: Never Smoking risk assessment performed?: Yes Alcohol Intake: current Alcohol Intake frequency: a few times a month Alcohol type: beer, wine and hard liquor Substance use type: does not use Current gender identity: female Do you feel safe at home: Yes Do you feel safe in your relationship?: Yes
[2025-09-01 12:53] LABS: Abs Immature Grans 0.03 10^3/uL (0.0-0.06); HCT 46.4 % (36.0-46.0); HGB 14.7 g/dL (11.2-15.7); Immature Grans % 0.4 %; MCH 27.4 pg (27.0-33.0); MCHC 31.7 % (32.0-36.0); MCV 86 fL (80-95); MPV 10.0 fL (8.0-11.0); Platelet Count 290 10^3/uL (130-400); RBC 5.37 10^6/uL (3.93-5.22); RDW 14.0 % (11.7-14.6); RDW-SD 44.6 fL; WBC 6.76 10^3/uL (4.4-10.8)
[2025-09-01 13:23] LABS: ALT 25 U/L (14-59); AST 18 U/L (15-37); Albumin 4.5 g/dL (3.4-5.0); Alkaline Phosphatase 81 U/L (46-116); Anion Gap 9.5 mmol/L (3-11); BUN 15 mg/dL (7-18); Bilirubin, Total 0.6 mg/dL (0.2-1.0); CO2 30.5 mmol/L (21.0-32.0); Calcium 9.5 mg/dL (8.5-10.1); Chloride 101 mmol/L (98-107); Estimated GFR 75.03 (mL/min/1.73m2); Glucose 90 mg/dL (74-106); Lipase 104 U/L (<78); Magnesium 2.1 mg/dL (1.8-2.4); NT-proBNP 27 pg/mL (<300); Potassium 3.7 mmol/L (3.5-5.1); Sodium 141 mmol/L (136-145); Total Protein 8.4 g/dL (6.4-8.2)
[2025-09-01 13:24] LABS: Troponin I < 4 ng/L (<or=51)
[2025-09-01 13:30] LABS: D-Dimer 300 ng/mlFEU (<500)
--- NOTE | 2025-09-01 13:55 | DI.CT_ITS ---
Exam(s) CT CHEST PE ABD PELVIS W EXAM: CT CHEST PE ABD PELVIS W CLINICAL HISTORY: Left chest pain/sob, recent car ride. TECHNIQUE: Imaging Protocol: Axial CT angiography was performed with multi- slice acquisition and multi-planar and/or 3D reconstructions. CONTRAST MATERIAL: Intravenous: Omnipaque 350 Contrast volume:75 mL Oral: None COMPARISON: CR XR CHEST 2V PA LATERAL from 09/01/2025 FINDINGS: CHEST: PULMONARY ARTERIES: There are no intra-arterial filling defects to suggest the presence of acute pulmonary emboli. LUNGS: There are mild increased markings in both lower lobes..Probably air trapping. No lung masses. No pulmonary infarction. There are no pleural effusions.No pneumothorax. MEDIASTINUM: There is no hilar nor mediastinal adenopathy. There is a taller than wider nodule in the left thyroid lobe which measures slightly over 1 cm. CARDIAC: Heart size is normal. There is no pericardial effusion. There is no significant shift of the interventricular septum.Caliber of the thoracic aorta is within normal limits. No evidence of dissection. Incidentally noted is an aberrant right subclavian artery, this being the last vessel off the aortic arch OSSEOUS: No significant osseous lesions.No fractures evident.. ABDOMEN: There is no ascites. No evidence of bowel wall nor mesenteric hematoma. LIVER: There are no focal hepatic lesions nor dilatation of intrahepatic ducts. GALLBLADDER/BILIARY: No obvious gallbladder pathology. CBD is not dilated. PANCREAS: No evidence of pancreatic mass nor dilatation of the pancreatic duct. SPLEEN: Small cyst and adjacent calcification noted in the spleen. Splenic and portal veins are patent. ADRENALS: There are no significant adrenal masses. KIDNEYS:No cysts evident. No calculi nor hydronephrosis. No solid renal masses. ABDOMINAL AORTA: Abdominal aorta is not enlarged. LYMPH NODES: There is no retroperitoneal or para-aortic adenopathy. ABDOMINAL WALL/GI: No evidence of significant anterior abdominal wall hernia. No bowel obstruction. PELVIS: LYMPH NODES: There is no intrapelvic nor inguinal adenopathy. GI: No evidence of appendicitis.No evidence of sigmoid diverticulitis. URINARY BLADDER: No calculi nor masses evident REPRODUCTIVE: Anteverted uterus. Poorly defined endometrium which may be thickened. No abnormal adnexal masses nor free fluid in the pelvis. OSSEOUS: No significant osseous lesions. 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 Disc space at this level is maintained. IMPRESSION: 1. No evidence of acute pulmonary emboli nor pulmonary infarction. No evidence of aortic dissection nor pericardial effusion. Incidentally noted is an aberrant right subclavian artery (developmental). 2. Nonspecific increased markings both lower lobes probably related to under aeration more so than actual infiltrates. There are no pleural effusions.No intrathoracic adenopathy. 3. Abnormal appearing nodule noted left thyroid lobe. Follow-up thyroid ultrasound is recommended. 4. Possible enlarged uterine endometrium. Can be further studied with ultrasound. 5. Other findings as above Report called to ER 09/01/2025 2:50 p.m. RADIATION DOSE DELIVERED: 541.06mGy.cm Total DLP DATA REPOSITORY: All CT scans at this facility are submitted to the National Radiology Data Registry (NRDR) Dose Index Registry (DIR) with the [employer] (ACR). RADIATION OPTIMIZATION: All CT scans at this facility use at least one of these dose optimization techniques: automated exposure control; mA and/or kV adjustment per patient size (includes targeted exams where dose is matched to clinical indication); or iterative reconstruction.
[2025-09-01] MEDS: Normal Saline - Diluent 50 ML VIAL IJ (14:20)
[2025-09-01] MEDS: Omnipaque 350 MG/ML 100 ML BTL IJ (14:20)
[2025-09-01 14:28] LABS: Troponin I 4 ng/L (<or=51)
[2025-09-01] MEDS: Ketorolac 30 MG/ML VIAL IVP (14:54)
== END 2025-09-01 16:10 | disposition home or self-care (01) ==
PROVIDERS: Emergency Provider Physician Assistant; PCP Nurse Practitioner Family
DX: R07.9 Chest pain, unspecified (principal); K85.90 Acute pancreatitis without necrosis or infection, unspecified
CPT/HCPCS: 99285; 99284; 36415; 96374; 71275; 74177; 80053; 83690; 93005; 71046; 83735; 83880; 84484; 85025; 85379; 93010; J1885; J3490

== ENCOUNTER 2025-09-05 13:27 | Outpatient (REF) | payer MEDICAID, SELFPAY ==
[2025-09-05 15:50] LABS: Iron 41 ug/dL (50-170); Total Iron Binding Capacity 349 ug/dL (250-450)
[2025-09-05 16:04] LABS: ALT 27 U/L (14-59); AST 20 U/L (15-37); Albumin 3.9 g/dL (3.4-5.0); Alkaline Phosphatase 69 U/L (46-116); Anion Gap 10.6 mmol/L (3-11); BUN 10 mg/dL (7-18); Bilirubin, Total 0.5 mg/dL (0.2-1.0); CO2 28.4 mmol/L (21.0-32.0); Calcium 9.1 mg/dL (8.5-10.1); Calculated LDL 199 mg/dL (<100); Chloride 104 mmol/L (98-107); Cholesterol 280 mg/dL (<200); Estimated GFR 101.44 (mL/min/1.73m2); Ferritin 13 ng/mL (8-252); Glucose 89 mg/dL (74-106); HDL Cholesterol 64 mg/dL (>or=50); Potassium 4.5 mmol/L (3.5-5.1); Sodium 143 mmol/L (136-145); TSH 1.28 uIU/mL (0.36-3.74); Total Protein 7.1 g/dL (6.4-8.2); Triglyceride 87 mg/dL (<150)
[2025-09-06 17:32] LABS: T3,Free 3.6 pg/mL (2.8-5.3)
[2025-09-07 15:00] LABS: Albumin 62.3 % (55.8-66.1); Albumin g/dL 4.5 g/dL (3.6-5.2); Alpha 1 g/dL 0.30 g/dL (0.15-0.40); Alpha 2 g/dL 0.70 g/dL (0.50-1.00); Beta g/dL 0.80 g/dL (0.60-1.20); Gamma g/dL 0.90 g/dL (0.60-1.60); Total Protein 7.2 g/dL (6.3-8.2)
== END 2025-09-05 13:28 | disposition home or self-care (01) ==
LOC: NCHCN 13:27
PROVIDERS: PCP Nurse Practitioner Family; Visit Provider Nurse Practitioner Family
DX: R77.8 Other specified abnormalities of plasma proteins (principal); E04.1 Nontoxic single thyroid nodule; E61.1 Iron deficiency; E78.5 Hyperlipidemia, unspecified
CPT/HCPCS: 80053; 80061; 82728; 83540; 83550; 84165; 84439; 84443; 84481

== ENCOUNTER → 2025-10-18 01:50 | Outpatient (CLI) | payer MEDICAID, SELFPAY ==
--- NOTE | 2025-10-18 | DI.MAMMO_ITS ---
Exam(s) MAMMO SCREENING EXAM: MAMMO SCREENING CLINICAL HISTORY: SCREENING, Z12.31 TECHNIQUE: Bilateral full field digital CC and MLO mammographic images were obtained with 3D tomosynthesis and utilizing computer aided detection (CAD). COMPARISON: Comparison is made with prior examinations. FINDINGS: Masses/Architectural Distortion: No suspicious masses or areas of architectural distortion are present. Microcalcifications: No suspicious pleomorphic-type are seen. Skin Thickening/Nipple Retraction: None. IMPRESSION: 1. No significant interval change with no specific features of malignancy noted. 2. Unless there is more urgent need, screening mammography is recommended, as per [employer] guidelines. BI-RADS Category 1 - Negative Breast Density - Category B - There are scattered areas of fibroglandular density. Breast density Category C or D implies that the patient has dense breast tissue. Dense breast tissue can make it harder to find cancer on a mammogram. Dense breast tissue is also associated with an increased risk of breast cancer. This information about the result of the mammogram report was provided to the patient to raise their awareness. Use this report when you speak with the patient about their risks for breast cancer, which includes their family history. At that time, you may recommend additional screening tests (Ultrasound or MRI) as these tests may add significant information. A negative radiographic report should not delay biopsy if a dominant or clinically suspicious mass is present. Up to ten percent of cancers are not identified on mammography. A negative report may reinforce clinical impression. Adenosis and dense breasts may obscure an underlying neoplasm. False positive reports average 6 to 10%. Patient will receive a letter notifying them of these results.
== END ==
LOC: DI 01:50
PROVIDERS: PCP Nurse Practitioner Family; Visit Provider Nurse Practitioner Family
DX: Z12.31 Encounter for screening mammogram for malignant neoplasm of breast (principal)
CPT/HCPCS: 77063; 77067